=== PATIENT | female | born 1955 | race African-American/Black ===

== ENCOUNTER 2016-03-29 17:40 | Emergency (ER) | payer MEDICARE, OTHER ==
[~2016-03-29] VITALS: Ht 152.4 cm; Wt 136.5 kg
[~2016-03-29 17:40] MED LIST: ABILIFY10 MG ORAL; ACETAMINOPHEN-1 EAC1 ORAL; ALTACE5 MG PO; AMBIEN10 MG PO; ASPIRIN EC81 MG ORAL; ATIVAN0.5 MG PO; BENADRYL25 M3 PO; CARISOPRODOL350 MG ORAL; CLONIDINE 0.2M0.2 MG PO; CYCLOBENZAPRINE10 MG ORAL; DIURIL25 MG ORAL; FLUTICASONE PRO16 G1 NASAL; GABAPENTIN100 MG ORAL; IBUPROFEN600 MG ORAL; LORATADINE5 MG/5 ML PO; LOVASTATIN10 MG ORAL; LOVASTATIN20 MG ORAL; MENEST0.3 MG PO; NORCO 5-325 TA1 EACH ORAL; RAMIPRIL5 MG PO; ROBAXIN-750750 MG PO; SERTRALINE HCL100 MG PO; TEMAZEPAM30 MG ORAL; TIZANIDINE HCL4 MG ORAL; TRAMADOL HCL50 MG ORAL; TRAZODONE HCL150 MG ORAL; VALIUM5 MG ORAL; VIIBRYD1 EACH PO; VIIBRYD10 MG PO; ZOLPIDEM TARTRA10 MG PO; [UNRECOGNIZED DRUG - OTHER] PO; [UNRECOGNIZED DRUG - OTHER] PO
--- NOTE | 2016-03-29 20:08 | Emergency Room Report ---
History of Present Illness General Chief Complaint: Lower Extremity Injury Source: Patient, Medical Record Present Illness HPI 60-year-old female presents to emergency Department complaining of left-sided lower back/hip pain in addition to left knee pain 8/10 in severity times almost 2 weeks. Status post mechanical slip and fall in the bathroom. Patient denies hitting her head she denies loss of consciousness. Patient reports continued pain. Patient denies bruising or swelling. Patient states pain is worse with weightbearing. Patient takes Advil with minimal relief. Denies neck or midline back pain. Patient denies previous injury to the affected extremity is. Denies numbness tingling or loss of sensation or gross motor movements of the extremities, incontinence of bowel or bladder. Denies CP, Palpitations, LOC , AMS, dizziness, Changes in Vision, Sensation, paresthesias, or a sudden severe headache. Allergies: Coded Allergies: NAPROXEN (Verified Allergy, Unknown, 12/25/14) Patient History Past Medical History: see triage record Past Surgical History: none Pertinent Family History: none Last Menstrual Period: menopause Now: No Reviewed Nursing Documentation: PMH: Agreed, PSxH: Agreed Nursing Documentation-PMH Past Medical History: No History, Except For Hx Cardiac Problems: Yes Hx Hypertension: Yes Hx Cancer: No Hx Gastrointestinal Problems: Yes - nausea/ vomiting Hx Dialysis: No Hx Neurological Problems: Yes Hx Transient Ischemic Attacks: Yes - 2011, 2012 Hx Memory Loss: Yes Hx Speech Problem: Yes Hx Dizziness: Yes Hx Weakness: Yes Review of Systems All Other Systems: negative except mentioned in HPI Physical Exam Vital Signs Date Time Temp Pulse Resp B/P Pulse Ox O2 Delivery O2 Flow Rate FiO2 03/29/16 18:45 97.9 72 16 170/103 99 Room Air Sp02 EP Interpretation: reviewed, normal General Appearance: no apparent distress, alert, GCS 15, non-toxic Head: normocephalic, atraumatic Eyes: bilateral eye PERRL, bilateral eye normal inspection ENT: hearing grossly normal, normal pharynx, no angioedema, normal voice Neck: full range of motion, supple/symm/no masses Respiratory: chest non-tender, lungs clear, normal breath sounds, speaking full sentences Cardiovascular #1: regular rate, rhythm, no edema Gastrointestinal: normal bowel sounds, non tender, soft, no guarding, no rebound Rectal: deferred Genitourinary: normal inspection, no CVA tenderness Musculoskeletal: back normal, gait/station normal, normal range of motion, no calf tenderness, other - anterior and lateral left knee TTP, no increased laxity upon varus or valgus stressing, negative anterior and posterior drawer signs. Left lateral hip pain, no obvious deformity, swelling or bruising. mild left upper gluteal pain, no midline spinous pain. Neurologic: alert, oriented x3, responsive, motor strength/tone normal, sensory intact, speech normal Psychiatric: judgement/insight normal, memory normal, mood/affect normal, no suicidal/homicidal ideation Reflexes: 4+ bicep (R), 4+ bicep (L), 4+ tricep (R), 4+ tricep (L), 4+ knee (R) , 4+ knee (L) Skin: normal color, no rash, warm/dry, well hydrated Lymphatic: no adenopathy Procedures Splinting Splinting : Consent: Verbal Location: left knee Pre-Made Type: TOMMY wrap Pre-Proc Neuro Vasc Exam: normal Post-Proc Neuro Vasc Exam: normal Patient Tolerated: Well Complications: None Medical Decision Making Diagnostic Impression: Primary Impression: Contusion of left hip and thigh Qualified Codes: S70.02XA - Contusion of left hip, initial encounter; S70.12XA - Contusion of left thigh, initial encounter Additional Impressions: Contusion of knee, left Left knee sprain Qualified Codes: S83.92XA - Sprain of unspecified site of left knee, initial encounter ER Course Pt. presents to the ED c/o of pain, left hip pain status post mechanical slip and fall approximately 2 weeks ago. Ddx considered but are not limited to Fracture, dislocation, contusion, Sprain/ Strain/Spasm Vital signs: are WNL, pt. is afebrile H&PE are most consistent with possible contusion rule out fractures with imaging ORDERS: - X-ray Left knee 3 views - negative for fx, Dislocation, or significant soft tissue injury, per preliminary read in ED by Dr. Hensley. - X-ray Left Hip 2 views - negative for fx, Dislocation, or significant soft tissue injury, per preliminary read in ED by Dr. Hensley. ED INTERVENTIONS: -500mg Tylenol PO - Tommy wrap applied by diesel lube tech. Pt. remains neurovascularly intact. -She is provided with crutches DISCHARGE: At this time pt. is stable for d/c to home. Will provide printed patient care instructions, and any necessary prescriptions. Care plan and follow up instructions have been discussed with the patient prior to discharge. Last Vital Signs Date Time Temp Pulse Resp B/P Pulse Ox O2 Delivery O2 Flow Rate FiO2 03/29/16 18:45 97.9 72 16 170/103 99 Room Air Disposition: HOME, SELF-CARE Condition: Stable Scripts Acetaminophen* (TYLENOL EXTRA STRENGTH*) 500 Mg Tablet 500 MG ORAL Q6H, #30 TAB 0 Refills Prov: Jaky See 03/29/16 Referrals: [facility],REFERRING (PCP) Patient Instructions: Contusion Additional Instructions: Take medications as directed. Follow up with PCP in 3-5 days Return sooner to ED if new symptoms occur, or current symptoms become worse. Jaky See Mar 29, 2016 20:08
[2016-03-29 20:19] VITALS: BP 161/95
[2016-03-29] MEDS ORDERED: TYLENOL EXTRA500 MG ORAL (20:26)
[2016-03-29] MEDS ORDERED: Acetaminophen 500mg (ES) tab ORAL ONE (20:30)
--- NOTE | 2016-03-30 09:16 | Diagnostic Imaging Report ---
Indications: Left knee pain Technique: 3 views of the left knee Findings: Comparison: None No fracture, dislocation, lytic destruction, periosteal reaction, joint space widening or effusion, surrounding soft tissue abnormality, or other acute changes demonstrated. No deformity, alignment abnormality, arthritic change, soft tissue calcification, or other chronic changes demonstrated. IMPRESSION: Negative left knee series.
--- NOTE | 2016-03-30 09:26 | Diagnostic Imaging Report ---
Indications: Fall one week ago with left hip injury, persistent pain Technique: 2 views left hip. Findings: Comparison: None No fracture, dislocation, joint space widening , surrounding soft tissue swelling/foreign body/other abnormality, or other acute changes are identified. IMPRESSION: No evidence of acute injury to the left hip.
[2016-03-30] MEDS ORDERED: ACETAMINOPHEN-1 EAC1 ORAL (17:09)
== END 2016-03-29 20:52 | disposition home or self-care (01) ==
LOC: EMR 19:34
DX: S70.02XA Contusion of left hip, initial encounter (principal); S70.12XA Contusion of left thigh, initial encounter; S83.92XA Sprain of unspecified site of left knee, initial encounter; S80.02XA Contusion of left knee, initial encounter; Z88.6 Allergy status to analgesic agent; I10 Essential (primary) hypertension; Z86.73 Personal history of transient ischemic attack (TIA), and cerebral infarction without residual deficits; W01.0XXA Fall on same level from slipping, tripping and stumbling without subsequent striking against object, initial encounter; Y92.002 Bathroom of unspecified non-institutional (private) residence as the place of occurrence of the external cause; Y99.8 Other external cause status
CPT/HCPCS: 73502; 99284

== ENCOUNTER 2016-03-30 16:50 | Emergency (ER) | payer MEDICARE, OTHER ==
[~2016-03-30] VITALS: Ht 157.5 cm; Wt 68.9 kg
[~2016-03-30 16:50] MED LIST changes: +TYLENOL EXTRA500 MG ORAL
[2016-03-30 17:06] VITALS: BP 152/89
[2016-03-30] MEDS ORDERED: ACETAMINOPHEN-1 EAC1 ORAL (17:09)
[2016-03-30 17:12] VITALS: BP 152/89
--- NOTE | 2016-03-30 22:21 | Emergency Room Report ---
History of Present Illness General Chief Complaint: Pain Present Illness HPI The patient is a 60-year-old female presenting with left knee and hip pain which began yesterday after tripping and falling. The patient was seen in this emergency department and diagnosed with contusions. The patient was discharged home with a prescription for Tylenol the patient states that this has not been helping. The pain is described as a 10/10 dull ache and does not radiate from these areas. Pain worse with movement. The patient denies numbness or tingling Allergies: Coded Allergies: NAPROXEN (Verified Allergy, Unknown, 12/25/14) Patient History Past Medical History: see triage record Pertinent Family History: none Reviewed Nursing Documentation: PMH: Agreed, PSxH: Agreed Nursing Documentation-PMH Hx Cardiac Problems: Yes Hx Hypertension: Yes Hx Cancer: No Hx Gastrointestinal Problems: Yes - nausea/ vomiting Hx Dialysis: No Hx Neurological Problems: Yes Hx Transient Ischemic Attacks: Yes - 2011, 2012 Hx Memory Loss: Yes Hx Speech Problem: Yes Hx Dizziness: Yes Hx Weakness: Yes Review of Systems All Other Systems: negative except mentioned in HPI Physical Exam Vital Signs Date Time Temp Pulse Resp B/P Pulse Ox O2 Delivery O2 Flow Rate FiO2 03/30/16 16:57 98.4 66 20 148/92 100 Room Air Sp02 EP Interpretation: reviewed, normal General Appearance: no apparent distress, alert, GCS 15, non-toxic Head: normocephalic, atraumatic Neck: full range of motion, supple/symm/no masses Musculoskeletal: back normal, digits/nails normal, normal range of motion, pelvis stable, tender - TTP over lateral L hip and L knee Neurologic: alert, oriented x3, responsive, motor strength/tone normal, sensory intact, speech normal Psychiatric: judgement/insight normal, memory normal, mood/affect normal, no suicidal/homicidal ideation Skin: normal color, no rash, warm/dry, well hydrated Medical Decision Making PA Attestation Dr. Hensley is my supervising physician. Patient management was discussed with my supervising physician Diagnostic Impression: Primary Impression: Contusion of hip, left Additional Impression: Pain ER Course The patient is a 60-year-old female presenting with left knee and hip pain which began yesterday after tripping and falling. DDx: contusion, fracture, sprain PE: Vitals WNL. NAD L knee: TTP over anterior and lateral joint line. Full AROM. No obvious deformity. No laxity. L hip: No erythema or edema. Sensation intact to light touch. Full AROM. TTP over lateral hip. No joint laxity. No obvious deformity The patient will be discharged home with a prescription for Tylenol No. 3. ER precautions are given and the patient will followup with primary care physician Last Vital Signs Date Time Temp Pulse Resp B/P Pulse Ox O2 Delivery O2 Flow Rate FiO2 03/30/16 17:12 98.2 68 19 152/89 99 Room Air Status: improved Disposition: HOME, SELF-CARE Condition: Improved Scripts Acetaminophen With Codeine (T#3) (TYLENOL #3 TAB*) Y Tab 1 TAB ORAL Q4H Y for For Pain, #15 TAB Prov: ABHINAV BLACKMON 03/30/16 Referrals: [facility],REFERRING (PCP) Patient Instructions: Hip Pain Additional Instructions: I discussed my findings with the patient. All questions and concerns have been answered. Treatment and medication compliance have been addressed. I advised the patient that they need to follow up with PMD in 3-5 days. Return to ED if pain remains or worsens, numbness or tingling occurs, new rash is noticed, fever is noticed, or if needed for any reason. Patient verbalized understanding of discharge instructions. ABHINAV BLACKMON Mar 30, 2016 22:21
== END 2016-03-30 17:20 | disposition home or self-care (01) ==
LOC: EMR 17:14
DX: S70.02XD Contusion of left hip, subsequent encounter (principal); I10 Essential (primary) hypertension; Z86.73 Personal history of transient ischemic attack (TIA), and cerebral infarction without residual deficits; Z88.6 Allergy status to analgesic agent; W18.30XD Fall on same level, unspecified, subsequent encounter
CPT/HCPCS: 99283

== ENCOUNTER 2016-05-21 15:00 | Emergency (ER) | payer MEDICARE, OTHER ==
[~2016-05-21] VITALS: Ht 154.9 cm; Wt 95.7 kg
[2016-05-21] MEDS ORDERED: Artificial Tears 1.4% Op Soln BOTH EYES STA (15:19)
--- NOTE | 2016-05-21 15:26 | Emergency Room Report ---
History of Present Illness General Chief Complaint: Chest Pain Source: Patient Present Illness HPI A presents with 3 weeks of illness. She's had a cough. She was treated with amoxicillin for 1 week at the beginning. She's persisted to have coughing with some wheezing recently. This morning she woke up with green discharge from her nose and also resting in both of her eyes. The eyes are inflamed and uncomfortable. She did receive a flu vaccination last year and also pneumonia shot. She's had fevers. She also complains of a headache. She states the headache is 9/10, throbbing in bilateral. Does not radiate. She denies any neck pain. She took Tylenol yesterday. It helped somewhat at that time. She denies any nausea vomiting dysuria skin rashes. She had diarrhea yesterday which was yellow. No blood. She has bipolar disorder and has been taking medication. No SI or HI. Allergies: Coded Allergies: NAPROXEN (Verified Allergy, Unknown, 12/25/14) Patient History Past Medical History: see triage record Past Surgical History: franca Social History: Denies: smoking Social History Narrative Lives by herself Reviewed Nursing Documentation: PMH: Agreed, PSxH: Agreed Nursing Documentation-PM Past Medical History: No History, Except For Hx Cardiac Problems: Yes Hx Hypertension: Yes Hx Cancer: No Hx Gastrointestinal Problems: Yes - nausea/ vomiting Hx Dialysis: No History Of Psychiatric Problem: Yes - Depression, Anxiety Hx Neurological Problems: No Hx Transient Ischemic Attacks: Yes - 2011, 2012 Hx Memory Loss: Yes Hx Speech Problem: Yes Hx Dizziness: Yes Hx Weakness: Yes Review of Systems All Other Systems: negative except mentioned in HPI Physical Exam Vital Signs Date Time Temp Pulse Resp B/P Pulse Ox O2 Delivery O2 Flow Rate FiO2 05/21/16 15:05 98.8 80 16 135/82 97 Room Air Sp02 EP Interpretation: reviewed, normal General Appearance: well appearing, no apparent distress, GCS 15 Head: normocephalic Eyes: bilateral eye PERRL, bilateral eye Scleral Injection, bilateral eye lid inflammation ENT: TMs + canals normal, moist mucus membranes, pharyngeal erythema Neck: full range of motion, supple, no meningismus Respiratory: chest non-tender, lungs clear Cardiovascular #1: regular rate, rhythm Cardiovascular #2: 2+ radial (R) Gastrointestinal: normal inspection, normal bowel sounds, non tender, no mass, non-distended Musculoskeletal: back normal, gait/station normal, normal range of motion Neurologic: alert, oriented x3, grossly normal Psychiatric: mood/affect normal Skin: normal inspection, warm/dry Medical Decision Making Diagnostic Impression: Primary Impression: Sinusitis Qualified Codes: J01.00 - Acute maxillary sinusitis, unspecified Additional Impressions: Conjunctivitis of both eyes Qualified Codes: H10.33 - Unspecified acute conjunctivitis, bilateral Chest pain Qualified Codes: R07.9 - Chest pain, unspecified ER Course Patient presents with 3 weeks of upper respiratory symptomatology. She is status post one course of amoxicillin. Differential with the eye involvement include viral, chlamydial, other bacterial etiology. As she has been wheezing she'll be treated with bronchodilators here. Also she will be evaluated with EKG, chest x-ray and labs as she complains of chest pain. Antibiotics for atypicals (chlamydia) indicated. Need to exclude pneumonia. See results below. CXR and EKG unremarkable. WBC normal as electrolytes. Improved with treatment. Laboratory Tests Test 05/21/16 15:45 White Blood Count 9.2 K/UL (4.8-10.8) Red Blood Count 4.14 M/UL (4.20-5.40) L Hemoglobin 12.6 G/DL (12.0-16.0) Hematocrit 38.5 % (37.0-47.0) Mean Corpuscular Volume 93 FL (80-99) Mean Corpuscular Hemoglobin 30.4 PG (27.0-31.0) Mean Corpuscular Hemoglobin Concent 32.7 G/DL (32.0-36.0) Red Cell Distribution Width 11.7 % (11.6-14.8) Platelet Count 273 K/UL (150-450) Mean Platelet Volume 7.6 FL (6.5-10.1) Neutrophils (%) (Auto) 44.7 % (45.0-75.0) L Lymphocytes (%) (Auto) 44.1 % (20.0-45.0) Monocytes (%) (Auto) 7.6 % (1.0-10.0) Eosinophils (%) (Auto) 2.7 % (0.0-3.0) Basophils (%) (Auto) 0.8 % (0.0-2.0) Urine Color Pale yellow Urine Appearance Clear Urine pH 6 (4.5-8.0) Urine Specific [place] 1.020 (1.005-1.035) Urine Protein Negative (NEGATIVE) Urine Glucose (UA) Negative (NEGATIVE) Urine Ketones Negative (NEGATIVE) Urine Occult Blood Negative (NEGATIVE) Urine Nitrite Negative (NEGATIVE) Urine Bilirubin Negative (NEGATIVE) Urine Urobilinogen Normal MG/DL (0.0-1.0) Urine Leukocyte Esterase 1+ (NEGATIVE) H Urine RBC 0-2 /HPF (0 - 2) Urine WBC 0-2 /HPF (0 - 2) Urine Squamous Epithelial Cells Many /LPF (NONE/OCC) H Urine Bacteria Occasional /HPF (NONE) Sodium Level 141 mEQ/L (135-145) Potassium Level 3.7 mEQ/L (3.4-4.9) Chloride Level 101 mEQ/L (98-107) Carbon Dioxide Level 27 mEQ/L (20-30) Anion Gap 13 (5-15) Blood Urea Nitrogen 17 mg/dL (7-23) Creatinine 0.9 mg/dL (0.5-0.9) Estimate Glomerular Filtration Rate > 60 mL/min (>60) Glucose Level 118 mg/dL (74-106) H Calcium Level 8.9 mg/dL (8.6-10.2) Total Bilirubin < 0.2 mg/dL (0.0-1.2) Aspartate Amino Transferase (AST) 16 U/L (5-40) Alanine Aminotransferase (ALT) 15 U/L (3-33) Alkaline Phosphatase 80 U/L (35-104) Total Protein 7.0 g/dL (6.6-8.7) Albumin 3.8 g/dL (3.5-5.2) Globulin 3.2 g/dL Albumin/Globulin Ratio 1.1 (1.0-2.7) EKG Diagnostic Results Rate: normal Rhythm: NSR ST Segments: no acute changes Rhythm Strip Diag. Results EP Interpretation: yes Rhythm: NSR, no PVC's, no ectopy Chest X-Ray Diagnostic Results EP Interpretation: Yes Findings: no consolidation, no effusion, no pneumothorax, no acute cardiopulmonary disease Number of Views: 1 Last Vital Signs Date Time Temp Pulse Resp B/P Pulse Ox O2 Delivery O2 Flow Rate FiO2 05/21/16 17:19 98.8 74 18 128/67 100 Room Air Status: improved Disposition: HOME, SELF-CARE Condition: Improved Scripts Albuterol Sulfate* (ALBUTEROL SULFATE MDI*) 8.5 Gm Hfa.aer.ad 2 PUFF INH Q6H, #1 INH 0 Refills Prov: Bebo Fowler M.D. 05/21/16 Tramadol Hcl* (ULTRAM*) 50 Mg Tablet 50 MG ORAL Q6H Y for For Pain, #10 TAB 0 Refills Prov: Bebo Fowler M.D. 05/21/16 Sulfacetamide Sodium (BLEPH-10) 5 Ml Drops 2 DROP OP Q6HR, #5 ML Prov: Bebo Fowler M.D. 05/21/16 Levofloxacin* (LEVAQUIN*) 500 Mg Tablet 500 MG ORAL DAILY, #7 TAB Prov: Bebo Fowler M.D. 05/21/16 Ibuprofen* (MOTRIN*) 600 Mg Tablet 600 MG ORAL Q6H Y for For Pain, #16 TAB Prov: Bebo Fowler M.D. 05/21/16 Bebo Fowler M.D. May 21, 2016 15:26
[2016-05-21] MEDS ORDERED: Albuterol ud Inhalation HHN ONE (15:30)
[2016-05-21 16:06] LABS: APPEARANCE,URINE CLEAR; BASOPHILS % (AUTO) 0.8 % (0.0-2.0); EOSINOPHILS % (AUTO) 2.7 % (0.0-3.0); KETONES,URINE NEGATIVE (NEGATIVE); LEUKOCYTE ESTERASE ,URINE 1+ (NEGATIVE); LYMPHOCYTES % (AUTO) 44.1 % (20.0-45.0); MEAN CORPUSCULAR HEMOGLOBIN 30.4 PG (27.0-31.0); MEAN CORPUSCULAR HGB CONC 32.7 G/DL (32.0-36.0); MEAN CORPUSCULAR VOLUME 93 FL (80-99); MEAN PLATELET VOLUME 7.6 FL (6.5-10.1); MONOCYTES % (AUTO) 7.6 % (1.0-10.0); NEUTROPHILS % (AUTO) 44.7 % (45.0-75.0); NITRITE,URINE NEGATIVE (NEGATIVE); PH,URINE 6 (4.5-8.0); PLATELET COUNT 273 K/UL (150-450); PROTEIN,URINE NEGATIVE (NEGATIVE); RED BLOOD COUNT 4.14 M/UL (4.20-5.40); RED CELL DISTRIBUTION WIDTH 11.7 % (11.6-14.8); UROBILINOGEN,URINE NORMAL MG/DL (0.0-1.0); WHITE BLOOD COUNT 9.2 K/UL (4.8-10.8)
--- NOTE | 2016-05-21 16:17 | Diagnostic Imaging Report ---
Indications: Chest pain, cough Technique: Portable AP chest Findings: Comparison: 09/04/13 Cardiac silhouette remains enlarged. Pulmonary vasculature remains within normal limits. Lungs and pleura remain clear. Metallic density now overlies lower thoracic spine.. IMPRESSION: No evidence of acute disease, unchanged. Stable cardiomegaly Suggestion of interval thoracic spine fusion
[2016-05-21 16:21] LABS: BACTERIA,URINE OCCASIONAL /HPF; RBC,URINE 0-2 /HPF (0 - 2); SQUAMOUS EPITHELIAL CELL,UR MANY /LPF (NONE/OCC); WBC,URINE 0-2 /HPF (0 - 2)
[2016-05-21 16:35] LABS: ALANINE AMINOTRANSFERASE 15 U/L (3-33); ALBUMIN/GLOBULIN RATIO 1.1 (1.0-2.7); ANION GAP 13 (5-15); ASPARTATE AMINO TRANSFERASE 16 U/L (5-40); CALCIUM 8.9 mg/dL (8.6-10.2); CARBON DIOXIDE 27 mEQ/L (20-30); CHLORIDE 101 mEQ/L (98-107); CREATININE 0.9 mg/dL (0.5-0.9); GLOMERULAR FILTRATION RATE > 60 mL/min (>60); HEMOLYSIS 11; POTASSIUM 3.7 mEQ/L (3.4-4.9); SODIUM 141 mEQ/L (135-145)
[2016-05-21] MEDS ORDERED: ALBUTEROL SULF8.5 GM INH (16:46)
[2016-05-21] MEDS ORDERED: IBUPROFEN600 MG ORAL (16:46)
[2016-05-21] MEDS ORDERED: BLEPH-105 ML OP (16:46)
[2016-05-21] MEDS ORDERED: LEVAQUIN500 MG ORAL (16:46)
[2016-05-21] MEDS ORDERED: TRAMADOL HCL50 MG ORAL (16:46)
[2016-05-21 16:53] VITALS: BP 128/67
[2016-05-21 17:19] VITALS: BP 128/67
--- NOTE | 2016-05-28 16:47 | Cardiology Report ---
APPROVED REPORT EKG Measurement Heart [id number] Normal sinus rhythm Normal ECG
== END 2016-05-21 17:23 | disposition home or self-care (01) ==
LOC: EMR 16:47
DX: J01.00 Acute maxillary sinusitis, unspecified (principal); H10.33 Unspecified acute conjunctivitis, bilateral; R07.9 Chest pain, unspecified; Z86.73 Personal history of transient ischemic attack (TIA), and cerebral infarction without residual deficits; F32.9 Major depressive disorder, single episode, unspecified; F41.9 Anxiety disorder, unspecified; I10 Essential (primary) hypertension; Z88.6 Allergy status to analgesic agent
CPT/HCPCS: 36415; 71010; 80053; 81003; 85025; 93005; 94640; 94664; 96360; 99284; J1956

== ENCOUNTER 2016-06-29 08:20 | Outpatient (RCR) | payer MEDICARE, OTHER ==
[~2016-06-29 08:20] MED LIST changes: +ALBUTEROL SULF8.5 GM INH; +BLEPH-105 ML OP; +LEVAQUIN500 MG ORAL
[2016-07-18] MEDS ORDERED: TIZANIDINE HCL4 MG ORAL (07:53)
[2016-07-18] MEDS ORDERED: BANOPHEN50 MG PO (07:53)
[2016-07-18] MEDS ORDERED: BUPROPION HCL100 MG ORAL (07:53)
[2016-07-18] MEDS ORDERED: ACETAMINOPHEN-1 EAC1 ORAL (08:27)
[2016-07-18] MEDS ORDERED: IBUPROFEN600 MG ORAL (08:27)
[2016-07-19] MEDS ORDERED: HYDROCODON-ACE1 EA15 ORAL (22:05)
== END 2016-07-18 | disposition home or self-care (01) ==
LOC: PTY 08:20
DX: M54.5 Low back pain (principal); M79.606 Pain in leg, unspecified; M25.562 Pain in left knee; Z91.81 History of falling; R53.1 Weakness; F41.9 Anxiety disorder, unspecified; F32.9 Major depressive disorder, single episode, unspecified; E11.9 Type 2 diabetes mellitus without complications; M19.90 Unspecified osteoarthritis, unspecified site; Z86.73 Personal history of transient ischemic attack (TIA), and cerebral infarction without residual deficits
CPT/HCPCS: 97035; 97110; 97162; G0283; G8978; G8979

== ENCOUNTER 2016-07-18 07:34 | Emergency (ER) | payer MEDICARE, OTHER ==
[~2016-07-18] VITALS: Ht 154.9 cm; Wt 93.9 kg
[2016-07-18] MEDS ORDERED: BUPROPION HCL100 MG ORAL (07:53)
[2016-07-18] MEDS ORDERED: TIZANIDINE HCL4 MG ORAL (07:53)
[2016-07-18] MEDS ORDERED: BANOPHEN50 MG PO (07:53)
[2016-07-18 08:02] VITALS: BP 142/92
[2016-07-18] MEDS ORDERED: Ketorolac 30mg Inj IM ONE (08:15)
[2016-07-18] MEDS ORDERED: IBUPROFEN600 MG ORAL (08:27)
[2016-07-18] MEDS ORDERED: ACETAMINOPHEN-1 EAC1 ORAL (08:27)
[2016-07-18 08:29] VITALS: BP 142/92
--- NOTE | 2016-07-18 09:49 | Emergency Room Report ---
History of Present Illness General Chief Complaint: Pain Source: Patient Present Illness HPI 60-year-old female presents to ED complaining of left knee pain. Patient states in March she had a mechanical trip and fall. Patient was seen in ER and had x-rays which were negative. Patient states since then she has seen her PMD who had recommended physical therapy. Patient has gone to physical therapy for the last 3 weeks without significant provided. Patient is scheduled to see orthopedic this week however pain is getting worse she came to ER for evaluation. Pain is a 9/10, throbbing, nonradiating. Worse with walking. No other aggravating relieving factors. Denies any other associated symptoms Allergies: Coded Allergies: NAPROXEN (Verified Allergy, Unknown, 12/25/14) Patient History Past Medical History: HTN, CVA/TIA Past Surgical History: none Pertinent Family History: none Social History: Denies: alcohol use, drug use, smoking Now: No Immunizations: UTD Reviewed Nursing Documentation: PMH: Agreed, PSxH: Agreed Nursing Documentation-PMH Hx Cardiac Problems: Yes Hx Hypertension: Yes Hx Cancer: No Hx Gastrointestinal Problems: Yes - nausea/ vomiting Hx Dialysis: No Hx Neurological Problems: No Hx Transient Ischemic Attacks: Yes - 2011, 2012 Hx Memory Loss: Yes Hx Speech Problem: Yes Hx Dizziness: Yes Hx Weakness: Yes Review of Systems All Other Systems: negative except mentioned in HPI Physical Exam Vital Signs Date Time Temp Pulse Resp B/P Pulse Ox O2 Delivery O2 Flow Rate FiO2 07/18/16 07:38 98.1 69 16 142/92 100 Room Air Sp02 EP Interpretation: reviewed, normal General Appearance: no apparent distress, alert, GCS 15, non-toxic, obese Head: normocephalic Eyes: bilateral eye PERRL, bilateral eye normal inspection ENT: normal ENT inspection Neck: normal inspection Respiratory: chest non-tender, lungs clear, normal breath sounds, speaking full sentences Cardiovascular #1: regular rate, rhythm, no edema Gastrointestinal: normal inspection Rectal: deferred Genitourinary: no CVA tenderness Musculoskeletal: normal range of motion, no calf tenderness, swelling - L knee Neurologic: alert, oriented x3, responsive, motor strength/tone normal, sensory intact, speech normal Psychiatric: normal inspection Skin: normal inspection Lymphatic: normal inspection Procedures Splinting Splinting : Pre-Made Type: CLARITZA wrap - L knee Medical Decision Making Diagnostic Impression: Primary Impression: Knee pain Qualified Codes: M25.562 - Pain in left knee; G89.29 - Other chronic pain ER Course Hospital Course 60-year-old female presents to ED complaining of left knee pain. s/p fall x 3 months Differential diagnoses include: Fracture, dislocation, sprain, contusion, bursitis Clinical course Patient placed on stretcher. After initial history, physical exam reveals an middle-aged female in no acute distress. There is some tenderness to the knee. Some swelling noted. Full range of motion noted. No joint laxity. I reviewed EMR. Patient had x-rays in March which were negative. Patient has been going to therapy since without significant relief. I see no reason to repeat imaging at this time. Patient will likely benefit from orthopedic consultation. patient has orthopedic scheduled appointment this week Patient states her home pain medications are not helping. I will prescribe Motrin and Tylenol No. 3 for breakthrough pain Diagnosis - knee pain stable and discharged to home with prescription for Motrin, Tylenol #3. Followup with PMD. Return to ED if symptoms recur or worsen Last Vital Signs Date Time Temp Pulse Resp B/P Pulse Ox O2 Delivery O2 Flow Rate FiO2 07/18/16 08:29 98.1 80 16 142/92 100 Room Air Status: improved Disposition: HOME, SELF-CARE Condition: Stable Scripts Acetaminophen With Codeine (T#3) (TYLENOL #3 TAB*) Y Tab 1 TAB ORAL Q8H Y for For Pain, #20 TAB Prov: NASH ALMARAZ M.D. 07/18/16 Ibuprofen* (MOTRIN*) 600 Mg Tablet 600 MG ORAL Q8H Y for For Pain, #30 TAB 0 Refills Prov: NASH ALMARAZ M.D. 07/18/16 Referrals: Sukh Castañeda MD (PCP) Patient Instructions: Knee Pain, [id number] NASH ALMARAZ M.D. Jul 18, 2016 09:49
[2016-07-19] MEDS ORDERED: HYDROCODON-ACE1 EA15 ORAL (22:05)
== END 2016-07-18 08:34 | disposition home or self-care (01) ==
LOC: EMR 08:20
DX: M25.562 Pain in left knee (principal); I10 Essential (primary) hypertension; Z86.73 Personal history of transient ischemic attack (TIA), and cerebral infarction without residual deficits; Z91.81 History of falling
CPT/HCPCS: 29530; 96372; 99284; J1885

== ENCOUNTER 2016-07-19 09:00 | Outpatient (RCR) | payer MEDICARE, OTHER ==
[~2016-07-19 09:00] MED LIST changes: +BANOPHEN50 MG PO; +BUPROPION HCL100 MG ORAL
[2016-07-19] MEDS ORDERED: HYDROCODON-ACE1 EA15 ORAL (22:05)
[2016-08-14] MEDS ORDERED: LYRICA75 M1 ORAL (13:17)
[2016-08-14] MEDS ORDERED: BANOPHEN50 MG PO (13:17)
[2016-08-14] MEDS ORDERED: DICLOFENAC SOD100 MG PO (13:17)
[2016-08-14] MEDS ORDERED: BENZTROPINE ME0.5 MG PO (13:17)
[2016-08-14] MEDS ORDERED: DIOVAN160 MG ORAL (13:17)
[2016-08-14] MEDS ORDERED: FLUOXETINE HCL20 MG ORAL (13:17)
[2016-08-14] MEDS ORDERED: IBUPROFEN400 MG ORAL (13:37)
[2016-08-14] MEDS ORDERED: CYCLOBENZAPRINE10 MG ORAL (13:37)
== END 2016-08-18 | disposition home or self-care (01) ==
LOC: PTY 09:00
DX: M54.5 Low back pain (principal); M79.606 Pain in leg, unspecified; M25.562 Pain in left knee; Z91.81 History of falling; R53.1 Weakness; F41.9 Anxiety disorder, unspecified; F32.9 Major depressive disorder, single episode, unspecified; E11.9 Type 2 diabetes mellitus without complications; M19.90 Unspecified osteoarthritis, unspecified site; Z86.73 Personal history of transient ischemic attack (TIA), and cerebral infarction without residual deficits
CPT/HCPCS: 97035; 97110; G0283

== ENCOUNTER 2016-07-19 21:17 | Emergency (ER) | payer MEDICARE, OTHER ==
[~2016-07-19] VITALS: Ht 154.9 cm; Wt 98.4 kg
[2016-07-19 21:40] VITALS: BP 116/81
[2016-07-19] MEDS ORDERED: HYDROmorphone 1mg/ml Carpuject IM ONE (22:00)
[2016-07-19] MEDS ORDERED: HYDROCODON-ACE1 EA15 ORAL (22:05)
--- NOTE | 2016-07-19 22:06 | Emergency Room Report ---
History of Present Illness General Chief Complaint: Pain Source: Patient Present Illness HPI This is a 60-year-old he male with multiple medical problem. She presents with chief complaint of left knee pain. She had fallen on her knee couple months ago. X-rays were negative. She's been getting physical therapy is not helping. She was seen here yesterday and prescribe Tylenol No. 3. She went to physical therapy today and afterward her whole left knee and leg is throbbing and hurting. Worse with movement. Fell spasm. Pain is 10 out of 10. Her Tylenol #3 not helping. No other complaint. No trauma. Allergies: Coded Allergies: NAPROXEN (Verified Allergy, Unknown, 12/25/14) Patient History Past Medical History: see triage record, old chart reviewed Pertinent Family History: none Social History: Denies: smoking Last Menstrual Period: NA Now: No Immunizations: other Reviewed Nursing Documentation: PMH: Agreed, PSxH: Agreed Nursing Documentation-PMH Hx Cardiac Problems: Yes Hx Hypertension: Yes Hx Cancer: No Hx Gastrointestinal Problems: Yes - nausea/ vomiting Hx Dialysis: No Hx Neurological Problems: No Hx Transient Ischemic Attacks: Yes - 2011, 2012 Hx Memory Loss: Yes Hx Speech Problem: Yes Hx Dizziness: Yes Hx Weakness: Yes Review of Systems Eye: Denies: blurred vision, eye pain ENT: Denies: ear pain, nose congestion, throat swelling Respiratory: Denies: cough, shortness of breath Cardiovascular: Denies: chest pain, palpitations Gastrointestinal: Denies: abdominal pain, diarrhea, nausea, vomiting Musculoskeletal: Reports: joint pain, Denies: back pain Skin: Denies: rash Neurological: Denies: headache, numbness Endocrine: Denies: increased thirst, increased urine Hematologic/Lymphatic: Denies: easy bruising All Other Systems: negative except mentioned in HPI Physical Exam Vital Signs Date Time Temp Pulse Resp B/P Pulse Ox O2 Delivery O2 Flow Rate FiO2 07/19/16 21:25 98.1 84 18 105/64 97 Room Air vitals normal Sp02 EP Interpretation: reviewed, normal General Appearance: well appearing, no apparent distress, alert, obese Head: normocephalic, atraumatic Eyes: bilateral eye EOMI, bilateral eye PERRL ENT: hearing grossly normal, normal pharynx Neck: full range of motion, supple, no meningismus Respiratory: chest non-tender, lungs clear, normal breath sounds Cardiovascular #1: regular rate, rhythm, no murmur Gastrointestinal: normal bowel sounds, non tender, no mass, no organomegaly, no bruit, non-distended Musculoskeletal: back normal, gait/station normal, other - Diffuse tenderness to the left knee No redness. No edema. Psychiatric: mood/affect normal Skin: warm/dry Medical Decision Making Diagnostic Impression: Primary Impression: Knee pain Qualified Codes: M25.562 - Pain in left knee ER Course Patient presents with acute on chronic knee pain. No evidence of any fracture dislocation. No evidence of DVT or septic joint. We'll discharge home. Last Vital Signs Date Time Temp Pulse Resp B/P Pulse Ox O2 Delivery O2 Flow Rate FiO2 07/19/16 21:25 98.1 84 18 105/64 97 Room Air Status: improved Disposition: HOME, SELF-CARE Condition: Stable Scripts Hydrocodone/Acetaminophen 5-325* (HYDROCODONE/ACETAMINOPHEN 5-325*) 1 Each Tablet 1 TAB ORAL Q6H Y for For Pain, #30 TAB 0 Refills Prov: ALIDA QUEVEDO M.D. 07/19/16 Referrals: Sukh Castañeda MD (PCP) Additional Instructions: Followup with your DrLizzie in 7 days. Keep the appointment with orthopedic Dr. Return if worse. ALIDA QUEVEDO M.D. July 19, 2016 22:06
[2016-07-19 22:25] VITALS: BP 115/69
== END 2016-07-19 22:25 | disposition home or self-care (01) ==
LOC: EMR 21:28
DX: M25.562 Pain in left knee (principal); I10 Essential (primary) hypertension; Z86.73 Personal history of transient ischemic attack (TIA), and cerebral infarction without residual deficits
CPT/HCPCS: 96372; 99283; J1170

== ENCOUNTER 2016-08-14 12:47 | Emergency (ER) | payer MEDICARE, OTHER ==
[~2016-08-14] VITALS: Ht 154.9 cm; Wt 93.9 kg
[~2016-08-14 12:47] MED LIST changes: +HYDROCODON-ACE1 EA15 ORAL
[2016-08-14] MEDS ORDERED: BANOPHEN50 MG PO (13:17)
[2016-08-14] MEDS ORDERED: DICLOFENAC SOD100 MG PO (13:17)
[2016-08-14] MEDS ORDERED: DIOVAN160 MG ORAL (13:17)
[2016-08-14] MEDS ORDERED: FLUOXETINE HCL20 MG ORAL (13:17)
[2016-08-14] MEDS ORDERED: LYRICA75 M1 ORAL (13:17)
[2016-08-14] MEDS ORDERED: BENZTROPINE ME0.5 MG PO (13:17)
--- NOTE | 2016-08-14 13:34 | Emergency Room Report ---
History of Present Illness General Chief Complaint: Lower Back Pain or Injury Source: Patient, Medical Record Present Illness HPI 61-year-old female presents emergency department complaining of exacerbation of her chronic left knee pain in addition to left-sided low back pain which is 8/ 10 in severity x1 month. Patient was seen here one month ago where she was prescribed Gore. Patient states she recently had follow up appointment with her PCP and had MRI performed which showed degenerative disc in addition to arthritic changes. Patient states that her PCP discussed with her that she will need knee replacement. Patient states she continues to have pain in the knee and on the left side of her back. Patient states that her back pain feels like the muscle is spasm on one side she describes tightness, and intermittent radiation down the left posterior thigh. Patient denies trauma or fall. Patient denies recent spinal procedures. Patient states years ago she had cortisone injection in the spine but nothing recent. She denies fevers, chills , erythema or bruises. Patient reports intermittent swelling of the left knee exacerbated upon moderate walking. Denies numbness tingling or loss of sensation or gross motor movements of the extremities, incontinence of bowel or bladder. Denies CP, Palpitations, LOC, AMS, dizziness, Changes in Vision, Sensation, paresthesias, or a sudden severe headache. Allergies: Coded Allergies: NAPROXEN (Verified Allergy, Unknown, 12/25/14) Patient History Past Medical History: see triage record Past Surgical History: none Pertinent Family History: none Now: No Immunizations: UTD Reviewed Nursing Documentation: PMH: Agreed, PSxH: Agreed Nursing Documentation-PMH Hx Cardiac Problems: Yes Hx Hypertension: Yes Hx Cancer: No Hx Gastrointestinal Problems: Yes - nausea/ vomiting Hx Dialysis: No Hx Neurological Problems: No Hx Transient Ischemic Attacks: Yes - 2011, 2012 Hx Memory Loss: Yes Hx Speech Problem: Yes Hx Dizziness: Yes Hx Weakness: Yes Review of Systems All Other Systems: negative except mentioned in HPI Physical Exam Vital Signs Date Time Temp Pulse Resp B/P Pulse Ox O2 Delivery O2 Flow Rate FiO2 08/14/16 13:07 99.0 77 16 110/74 99 Room Air Sp02 EP Interpretation: reviewed, normal General Appearance: no apparent distress, alert, GCS 15, non-toxic Head: normocephalic, atraumatic Eyes: bilateral eye PERRL, bilateral eye normal inspection ENT: hearing grossly normal, normal pharynx, no angioedema, normal voice Neck: full range of motion, supple/symm/no masses Respiratory: lungs clear, normal breath sounds, speaking full sentences Cardiovascular #1: regular rate, rhythm, no edema, normal capillary refill Cardiovascular #2: 2+ dorsalis pedis (R), 2+ dorsalis pedis (L) Musculoskeletal: back normal, gait/station normal, normal range of motion - FROM with pain , exacerbated with flexion of the left knee, tender - left paraspinal and upper gluteal ttp, no midline TTP, no erythema, no increased temperature to palpation or obvious deformity of the lumbar spine. no erythema , inflammation or obvious deformity of the left knee, no clicking , no increased laxity of the left knee, mild swelling noted. Neurologic: alert, oriented x3, responsive, motor strength/tone normal, sensory intact, speech normal Psychiatric: judgement/insight normal, memory normal, mood/affect normal Skin: normal color, no rash, warm/dry, well hydrated Medical Decision Making PA Attestation Dr. Mercado is my supervising Physician whom patient management has been discussed with. Diagnostic Impression: Primary Impression: Knee pain Qualified Codes: M25.562 - Pain in left knee; G89.29 - Other chronic pain Additional Impression: back pain ER Course 61-year-old female presents emergency department complaining of exacerbation of her chronic left knee pain in addition to left-sided low back pain which is 8/ 10 in severity x1 month. Patient was seen here one month ago where she was prescribed Gore. Patient states she recently had follow up appointment with her PCP and had MRI performed which showed degenerative disc in addition to arthritic changes. Patient states that her PCP discussed with her that she will need knee replacement. Patient states she continues to have pain in the knee and on the left side of her back. Patient states that her back pain feels like the muscle is spasm on one side she describes tightness, and intermittent radiation down the left posterior thigh. Patient denies trauma or fall. Patient denies recent spinal procedures. Patient states years ago she had cortisone injection in the spine but nothing recent. She denies fevers, chills , erythema or bruises. Patient reports intermittent swelling of the left knee exacerbated upon moderate walking. Ddx considered but are not limited to Fracture, dislocation, contusion, Sprain/ Strain/Spasm, Epidural abscess, Neoplastic mets, exacerbating of chronic pain , arthritis Vital signs: are WNL, pt. is afebrile H&PE are most consistent with exacerbation of chronic back pain, and arthritis. Pt describes muscular tightness and spasms as well. ORDERS: - no imaging is required at this time, pt. just had MRI performed by PCP which showed DJD, and arthritis. ED INTERVENTIONS: - Pt declines toradol, and she is driving. -Tommy wrap applied to the left knee by contract technical writer. Pt. remains neurovascularly intact. CURES REPORT OF THIS PT SHOWS HER SHE RECENTLY FILLED AN RX FOR NORCO qty 90 5 DAYS AGO ON 08/09, I FEEL THIS PT, SHOULD HAVE ADEQUATE AMOUNT OF OPIATE MEDICATION FOR PAIN CONTROL, AND IF OPIATES REQUIRED, THEN IT NEEDS TO BE RX'd BY ONE PROVIDER FOR PATIENT SAFETY. -d/w pt proper follow up with PCP, and if symptoms persist suggested pain management. d/w pt. will treat for sciatic symptoms conservatively. d/w pt to return to ED with worsening or new symptoms. DISCHARGE: At this time pt. is stable for d/c to home. Will provide printed patient care instructions, and any necessary prescriptions. Care plan and follow up instructions have been discussed with the patient prior to discharge. Last Vital Signs Date Time Temp Pulse Resp B/P Pulse Ox O2 Delivery O2 Flow Rate FiO2 08/14/16 13:07 99.0 77 16 110/74 99 Room Air Disposition: HOME, SELF-CARE Condition: Stable Scripts Cyclobenzaprine Hcl* (FLEXERIL*) 10 Mg Tablet 10 MG ORAL THREE TIMES A DAY for 7 Days, #21 TAB Prov: Jaky See.Fatou 08/14/16 Ibuprofen* (MOTRIN*) 400 Mg Tablet 400 MG ORAL THREE TIMES A DAY, #30 TAB 0 Refills Prov: Jaky eSe.Fatou 08/14/16 Patient Instructions: Back Pain, Adult, Knee Pain, [id number] Additional Instructions: Take medications as directed. Follow up with PCP in 3-5 days Return sooner to ED if new symptoms occur, or current symptoms become worse. Do not drink alcohol, drive, or operate heavy machinery while taking Muscle relaxer as this may cause drowsiness. - Please note that this Emergency Department Report was dictated using Telecardiadrainlayer technology software, occasionally this can lead to erroneous entry secondary to interpretation by the dictation equipment. Jaky See August 14, 2016 13:34
[2016-08-14] MEDS ORDERED: IBUPROFEN400 MG ORAL (13:37)
[2016-08-14] MEDS ORDERED: CYCLOBENZAPRINE10 MG ORAL (13:37)
[2016-08-14 13:51] VITALS: BP 108/70
[2016-08-14 13:52] VITALS: BP 110/74
== END 2016-08-14 13:52 | disposition home or self-care (01) ==
LOC: EMR 13:40
DX: M25.562 Pain in left knee (principal); G89.29 Other chronic pain; M54.5 Low back pain; I10 Essential (primary) hypertension; Z86.73 Personal history of transient ischemic attack (TIA), and cerebral infarction without residual deficits
CPT/HCPCS: 29530; 99284

== ENCOUNTER 2016-11-03 13:31 | Outpatient (RCR) | payer MEDICARE, OTHER ==
[~2016-11-03 13:31] MED LIST changes: +BENZTROPINE ME0.5 MG PO; +DICLOFENAC SOD100 MG PO; +DIOVAN160 MG ORAL; +FLUOXETINE HCL20 MG ORAL; +IBUPROFEN400 MG ORAL; +LYRICA75 M1 ORAL
[2016-11-08] MEDS ORDERED: TIZANIDINE HCL4 MG ORAL (11:12)
[2016-11-19] MEDS ORDERED: VALSARTAN-HCTZ1 EAC2 ORAL (10:08)
[2016-11-19] MEDS ORDERED: LATUDA20 MG PO (10:09)
== END 2016-11-18 | disposition home or self-care (01) ==
LOC: PTY 13:31
DX: M17.12 Unilateral primary osteoarthritis, left knee (principal)
CPT/HCPCS: 97035; 97110; 97164; G0283; G8978; G8979

== ENCOUNTER 2016-11-09 07:44 | Day surgery (SDC) | payer MEDICARE, OTHER ==
--- NOTE | 2016-11-05 13:58 | Pre-Procedure Note/Attestation ---
Pre-Procedure Note/Attestation Complete Prior to Procedure Planned Procedure: left Procedure Narrative: 1. CATARACT EXTRACTION WITH PHACO AND PC IOL IMPLANTATION, LEFT EYE. Indications for Procedure Pre-Operative Diagnosis: 1. CATARACT ,LEFT EYE. Attestation I attest that I discussed the nature of the procedure; its benefits; risks and complications; and alternatives (and the risks and benefits of such alternatives ), prior to the procedure, with the patient (or the patient's legal field sales representative). I attest that, if there was a reasonable possibility of needing a blood transfusion, the patient (or the patient's legal field sales representative) was given the [facility] standardized written summary, pursuant to the Leon Deepthi Blood Safety Act ([place] Health and Safety Code # 1645, as amended). I attest that I re-evaluated the patient just prior to the surgery and that there has been no change in the patient's H&P, except as documented below: TAMMI ARAYA Nov 05, 2016 13:57
[~2016-11-09] VITALS: Ht 154.9 cm; Wt 96.6 kg
[2016-11-09] VITALS (11 sets, daily range): BP systolic 124–136; BP diastolic 68–88
[~2016-11-09 07:44] MED LIST changes: +acetaZOLAMIDE 125mg tab ORAL ONE
[2016-11-09] MEDS ORDERED: Akten 3.5% 1ml Btl ONE (08:00)
[2016-11-09] MEDS ORDERED: Diclofenac Sod 0.1% Op Soln ONE (08:00)
[2016-11-09] MEDS ORDERED: Vigamox Opth Soln ONE (08:00)
[2016-11-09] MEDS ORDERED: Phenylephrine 10% Opth Soln 5ml ONE (08:00)
[2016-11-09] MEDS ORDERED: Tropicamide 1% Opth Soln ONE (08:01)
[2016-11-09] MEDS: Vigamox Opth Soln LEFT EYE SCH ×3 (08:05→08:17)
[2016-11-09] MEDS: Tropicamide 1% Opth Soln LEFT EYE SCH ×3 (08:05→08:17)
[2016-11-09] MEDS: Phenylephrine 10% Opth Soln 5ml LEFT EYE SCH ×3 (08:05→08:17)
[2016-11-09] MEDS: Akten 3.5% 1ml Btl LEFT EYE SCH ×3 (08:06→08:17)
[2016-11-09] MEDS: Diclofenac Sod 0.1% Op Soln LEFT EYE SCH ×3 (08:06→08:17)
[2016-11-09] MEDS ORDERED: BSS 500ml btl ONE (08:19)
[2016-11-09] MEDS ORDERED: Lidocaine 1% MPF 10mg/ml 5ml ONE (08:20)
[2016-11-09] MEDS ORDERED: Dexamethasone 4mg/ml vial ONE (08:20)
[2016-11-09] MEDS ORDERED: Sodium Hyaluronate 10 mg/ml 0.85ml ONE (08:20)
[2016-11-09] MEDS ORDERED: Povidone-Iodine 5% opth solution ONE (08:20)
[2016-11-09] MEDS ORDERED: EPINEPHrine 1mg/1ml Amp ONE (08:20)
[2016-11-09] MEDS ORDERED: BSS 15ml BTL ONE (08:20)
[2016-11-09] MEDS ORDERED: NS Irrig 1000ml ONE (08:30)
[2016-11-09] MEDS ORDERED: fentaNYL 100 mcg/2 mL IV ONE (08:30)
[2016-11-09] MEDS ORDERED: Sterile Water Irrig 1000ml IRRIG ONE (08:30)
[2016-11-09] MEDS ORDERED: LR 1000ml ONE (08:30)
[2016-11-09] MEDS ORDERED: Midazolam 2mg/2ml Inj ONE (08:30)
[2016-11-09] MEDS ORDERED: Propofol 10mg/ml 20ml IV ONE (08:30)
[2016-11-09] MEDS ORDERED: LR 1000ml 1,000 ML IVLG SCH (08:51)
--- NOTE | 2016-11-09 08:51 | Anethesia Preoperative Eval ---
Anesthesia Pre-op PMH/ROS General Date of Evaluation: Nov 09, 2016 Time of Evaluation: 08:13 Anesthesiologist: Allison ASA Score: ASA 3 Mallampati Score Class I : Soft palate, uvula, fauces, pillars visible Class II: Soft palate, uvula, fauces visible Class III: Soft palate, base of uvula visible Class IV: Only hard plate visible Mallampati Classification: Class II Surgeon: Nick Diagnosis: L eye cataract Surgical Procedure: L eye cataract extraction Anesthesia History: none Family History: no anesthesia problems Allergies: Coded Allergies: NAPROXEN (Verified Allergy, Severe, 11/09/16) SKIN RASH,ITCHING ESCITALOPRAM (Verified Allergy, Intermediate, hives, 11/09/16) Medications: see eMAR Past Medical History Cardiovascular: Reports: HTN, Denies: CAD, [place], arrhythmia, other, valve dz Pulmonary: Reports: MALINI, Denies: COPD, asthma, other Gastrointestinal/Genitourinary: Reports: GERD, Denies: CRI, ESRD, other Neurologic/Psychiatric: Reports: depression/anxiety, Denies: CVA, TIA, dementia, other Endocrine: Denies: DM, hypothyroidism, other, steroids HEENT: Reports: cataract (L), cataract (R), Denies: [place] (L), [place] (R), glaucoma, other Musculoskeletal/Integumentary: Denies: DDD, DJD, OA, RA, edema, other Other: obesity PMH Narrative: as above PSxH Narrative: Cholecystectomy, hysterectomy Anesthesia Pre-op Phys. Exam Physician Exam Last Vital Signs Date Time Temp Pulse Resp B/P Pulse Ox O2 Delivery O2 Flow Rate FiO2 11/09/16 08:24 97.6 60 18 131/73 100 Room Air Constitutional: NAD Neurologic: CN 2-12 intact Cardiovascular: RRR, no M/R/G Respiratory: CTA Gastrointestinal: other - obesity Airway Exam Mallampati Score: Class II MO: full Neck: flexible ROM: full Teeth: intact Dentures: no lower, no upper Anesthesia Pre-op A/P Labs see chart Studies Pre-op Studies: EKG - NSR Risk Assessment & Plan Assessment: ASA 3 Plan: MAc Status Change Before Surgery: No Pre-Antibiotics Drug: none LUCILA CHAVEZ M.D. Nov 09, 2016 08:51
[2016-11-09] MEDS ORDERED: fentaNYL 100 mcg/2 mL IV PRN (09:00)
[2016-11-09] MEDS ORDERED: DiphenhydrAMINE 50mg/ml Inj IVP PRN (09:00)
--- NOTE | 2016-11-09 09:05 | Discharge Summary ---
Discharge Summary Discharge Summary Discharge Summary DATE OF ADMISSION:11/09/2016 DATE OF DISCHARGE:11/09/2016 REASON FOR HOSPITALIZATION: SURGERY PERFORMED: Cataract extraction with phaco and PC IOL implantation, left eye CONDITION IN THE HOSPITAL:The patient tolerated the surgery without complications. DISCHARGE CONDITION: The patient was stable at discharge. DISCHARGE MEDICATIONS: 1. Vigamox eye drops one drop q.i.d, left eye 2. Prednisolone one drop q.i.d, left eye 3. Acular one drop q4h, left eye POSTOPERATIVE ORDERS: The patient has to rest at home. No bending, No lifting, No watching Television tonight. POSTOPERATIVE FOLLOW UP: The patient will be followed in my office tomorrow morning at 7 o'clock. TAMMI ARAYA Nov 09, 2016 09:05
--- NOTE | 2016-11-09 09:07 | Brief Operative Note ---
Immediate Post Operative Note Operative Note Chief Complaint: Blurry vision, difficulty driving and reading, left eye Pre-op Diagnosis: 1. CATARACT ,LEFT EYE. Procedure: Cataract extraction with phaco and PC IOL implantation, left eye Post-op Diagnosis: same as pre-op Surgeon: Tammi Romero MD Small Boat Engineer: None Additional Surgeons: NOne Anesthesiologist: Dr. Cooper Anesthesia: MAC Specimen: none Complications: none Condition: stable Estimated Blood Loss: none Drains: none Implant(s) used?: Yes - Monofocal PC IOL implanted in the left eye without complication TAMMI ROMERO Nov 09, 2016 09:07
--- NOTE | 2016-11-09 09:08 | Immediate Post-Op Evaluation ---
Immediate Post-Op Evalulation Immediate Post-Op Evalulation Procedure: L eye cataract extraction with IOL Date of Evaluation: Nov 09, 2016 Time of Evaluation: 09:07 IV Fluids: 300 Blood Products: none Estimated Blood Loss: none Urinary Output: none Blood Pressure Systolic: 126 Blood Pressure Diastolic: 72 Pulse Rate: 63 Respiratory Rate: 20 O2 Sat by Pulse Oximetry: 99 Temperature (Fahrenheit): 97.7 Pain Score (1-10): 2 Nausea: No Vomiting: No Complications none Patient Status: awake, patent, none Hydration Status: adequate LUCILA CHAVEZ M.D. Nov 09, 2016 09:08
--- NOTE | 2016-11-09 10:22 | 48 Hour Post Anesthesia Eval ---
Post Anesthesia Evaluation Procedure: L eye cataract extraction with IOL Date of Evaluation: Nov 09, 2016 Time of Evaluation: 10:21 Blood Pressure Systolic: 132 0: 74 Pulse Rate: 62 Respiratory Rate: 20 Temperature (Fahrenheit): 97.5 O2 Sat by Pulse Oximetry: 98 Airway: patent Nausea: No Vomiting: No Pain Intensity: 2 Hydration Status: adequate Cardiopulmonary Status: stable Mental Status/LOC: patient returned to baseline Follow-up Care/Observations: n/a Post-Anesthesia Complications: none Follow-up care needed: ready to discharge LUCILA CHAVEZ M.D. Nov 09, 2016 10:22
--- NOTE | 2016-11-09 22:30 | Operative Note - Dictated ---
DATE OF OPERATION: 11/09/2016 FACILITY: [facility]. SURGEON: Estevan Romero M.D. TIP INSERTER: None. ANESTHESIOLOGIST: Fernando Cooper M.D. ANESTHESIA: Monitored anesthesia care (MAC). PREOPERATIVE DIAGNOSIS: Cataract, left eye. POSTOPERATIVE DIAGNOSIS: Cataract, left eye. SURGERY PERFORMED: Cataract extraction with phacoemulsification and posterior chamber intraocular lens implantation in the left eye. INDICATION FOR SURGERY: The patient is a 61-year-old lady with history of hypertension, hypercholesterolemia, depression, anxiety, and bipolar. She had hysterectomy in the past. She quit smoking one year ago and she smoked for at least 15 years. She is not using any illicit drugs. ALLERGIES: She is allergic to naproxen and Mucinex. CURRENT MEDICATIONS: Aspirin, Diovan, , Lyrica, omega-3, and benztropine. She is complaining of blurry vision in the left eye. On examination of the left eye, the cornea is clear. Anterior chamber is clean and quiet. The pupillary reflex is normal. There is no RAPD. There is 3+ nuclear sclerosis and 2+ cortical cataract in the eye. Funduscopy shows normal optic nerve, normal macula, and periphery retina is flat. To improve her vision in the left eye, the cataract has to be removed and posterior chamber intraocular lens has to be implanted. INFORMED CONSENT: The nature of the surgery, risks, benefits, alternatives, and potential complications were explained all in detail to the patient. The potential complications including, but not limited to bleeding, infection, posterior capsular rupture, lens subluxation, flat anterior chamber, iris prolapse, uveitis, corneal edema, macular edema, endophthalmitis, retinal detachment, loss of vision, and even loss of the eye were all explained in detail to the patient. The patient voiced understanding and accepted all the complications. The alternatives including accommodating lens, multifocal lens, toric lens, and conventional cataract surgery with limbal relaxing incision (LRI) for treatment of astigmatism were all explained in detail to the patient. The patient voiced understanding. The patient elected to have only conventional cataract surgery. Then, she signed the consent form which is in the chart. DESCRIPTION OF SURGERY AND FINDINGS: Following the patient was taken to the operating room in stable condition. Lidocaine gel Atken 3.5% active were applied to the conjunctiva of the left eye. IV sedation was given by the anesthesiologist, Dr. Cooper. After adequate anesthesia and sedation had been achieved, the left eye was prepped and draped in the usual sterile fashion for intraocular surgery. Following that, a speculum was placed in the left eye. Following that, with a Super Sharp knife a clear corneal side port was created. A 1% lidocaine without preservative (MPF) was injected into the anterior chamber. Following that viscoelastic agent Healon was injected into the anterior chamber. Following that, using a 2.8 mm keratome, a clear corneal temporal keratotomy was performed. Following that under the viscoelastic agent, an anterior capsulotomy was performed in the fashion of capsulorrhexis beautifully. Following that, whole viscoelastic agent was removed from the anterior chamber. Following that, using balanced salt solution, hydrodissection and hydrodelineation was performed and the nucleus was freed. Following that, viscoelastic agent Healon was injected into the anterior chamber to protect the endothelium of the cornea. Following that, using a phacoemulsification machine in the fashion of horizontal chop, the nucleus was removed in toto. Following that, using irrigation aspiration unit, cortical material was removed from the capsular bag and the capsular bag was polished. Following that, the capsular bag was filled with viscoelastic agent, Healon. Following that, a +21 diopter ZCB00 foldable PCIOL with serial number #[id number] was inserted into the capsular bag. Using a Sinskey hook, the lens was manipulated and put in the proper position. Following that, the viscoelastic agent was removed from the anterior and posterior part of the lens. The anterior chamber was filled with balanced salt solution. Following that, the wounds were hydrated with balanced salt solution. Following that, the wound was checked for leakage and there was no leakage. Following that, Vigamox eye drops were applied to the conjunctiva of the left eye. The patient tolerated the surgery without complications. At the end of the surgery, the eye was patched with a clear sterile fenestrated shield. Following the patient was transferred to the recovery room. In the recovery room, 125 mg Diamox by mouth stat. Postoperative orders and directions were given to the patient. The patient will be discharged home upon stabilization. The patient will be followed in my office tomorrow morning at 9:30. Estevan Romero M.D. DR: LIZBET JOB#: [id number] CC:
== END 2016-11-09 10:30 | disposition home or self-care (01) ==
LOC: SUR 07:44
DX: H25.12 Age-related nuclear cataract, left eye (principal); H25.012 Cortical age-related cataract, left eye; I10 Essential (primary) hypertension; E78.00 Pure hypercholesterolemia, unspecified; F31.9 Bipolar disorder, unspecified; F41.0 Panic disorder [episodic paroxysmal anxiety]; E66.01 Morbid (severe) obesity due to excess calories; Z68.41 Body mass index [BMI] 40.0-44.9, adult; G47.33 Obstructive sleep apnea (adult) (pediatric); K21.9 Gastro-esophageal reflux disease without esophagitis; E04.1 Nontoxic single thyroid nodule; Z87.891 Personal history of nicotine dependence; Z90.710 Acquired absence of both cervix and uterus; Z90.49 Acquired absence of other specified parts of digestive tract; Z88.6 Allergy status to analgesic agent; Z88.8 Allergy status to other drugs, medicaments and biological substances
CPT/HCPCS: 66984; J0171; J1100; J2250; J2704; J3010; J7120; V2632; 94003; 94150

== ENCOUNTER 2016-11-23 06:12 | Day surgery (SDC) | payer MEDICARE, OTHER ==
[2016-11-23] VITALS (9 sets, daily range): BP systolic 118–141; BP diastolic 68–82
[~2016-11-23] VITALS: Ht 154.9 cm; Wt 98.4 kg
[~2016-11-23 06:12] MED LIST changes: +LATUDA20 MG PO; +VALSARTAN-HCTZ1 EAC2 ORAL
[2016-11-23] MEDS ORDERED: Akten 3.5% 1ml Btl ONE (06:56)
[2016-11-23] MEDS ORDERED: Phenylephrine 10% Opth Soln 5ml ONE (06:56)
[2016-11-23] MEDS ORDERED: Vigamox Opth Soln ONE (06:56)
[2016-11-23] MEDS ORDERED: Tropicamide 1% Opth Soln ONE (06:56)
[2016-11-23] MEDS ORDERED: fentaNYL 100 mcg/2 mL IV ONE (07:00)
[2016-11-23] MEDS: Phenylephrine 10% Opth Soln 5ml RIGHT EYE SCH ×3 (07:14→07:48)
[2016-11-23] MEDS: Vigamox Opth Soln RIGHT EYE SCH ×3 (07:14→07:48)
[2016-11-23] MEDS: Tropicamide 1% Opth Soln RIGHT EYE SCH ×3 (07:14→07:48)
[2016-11-23] MEDS: Akten 3.5% 1ml Btl RIGHT EYE SCH ×3 (07:14→07:48)
[2016-11-23] MEDS ORDERED: DiphenhydrAMINE 50mg/ml Inj ONE (08:10)
--- NOTE | 2016-11-23 08:13 | Anethesia Preoperative Eval ---
Anesthesia Pre-op PMH/ROS General Date of Evaluation: Nov 23, 2016 Anesthesiologist: Will ASA Score: ASA 3 Mallampati Score Class I : Soft palate, uvula, fauces, pillars visible Class II: Soft palate, uvula, fauces visible Class III: Soft palate, base of uvula visible Class IV: Only hard plate visible Mallampati Classification: Class II Surgeon: Nick Diagnosis: Right cataract Surgical Procedure: Right cataract extraction with IOL Anesthesia History: none Family History: no anesthesia problems Allergies: Coded Allergies: NAPROXEN (Verified Allergy, Severe, 11/09/16) SKIN RASH,ITCHING ESCITALOPRAM (Verified Allergy, Intermediate, hives, 11/09/16) Medications: see eMAR Past Medical History Cardiovascular: Reports: HTN, arrhythmia, other - HLD, Denies: CAD, [place], valve dz Pulmonary: Reports: MALINI, Denies: asthma, COPD, other Gastrointestinal/Genitourinary: Reports: GERD, Denies: CRI, ESRD, other Neurologic/Psychiatric: Reports: depression/anxiety, TIA, Denies: dementia, CVA, other Endocrine: Denies: DM, hypothyroidism, steroids, other HEENT: Reports: cataract (R), Denies: cataract (L), glaucoma, [place] (L), [place] (R), other Hematology/Immune: Denies: anemia, DVT, bleeding disorder, other Musculoskeletal/Integumentary: Reports: OA, Denies: RA, DJD, DDD, edema, other Other: obesity PSxH Narrative: lap franca, GLORIA, Left cataract Anesthesia Pre-op Phys. Exam Physician Exam Last Vital Signs Date Time Temp Pulse Resp B/P (MAP) Pulse Ox O2 Delivery O2 Flow Rate FiO2 11/23/16 07:17 97.7 57 20 141/82 99 Room Air Constitutional: NAD Cardiovascular: RRR Respiratory: CTA Airway Exam Mallampati Score: Class II MO: limited ROM: limited Anesthesia Pre-op A/P Labs see chart Risk Assessment & Plan Assessment: ASA III Plan: MAC Status Change Before Surgery: No Pre-Antibiotics Drug: N/A MARELY AYERS M.D. Nov 23, 2016 08:13
[2016-11-23] MEDS ORDERED: LR 1000ml 1,000 ML IVLG SCH (08:34)
--- NOTE | 2016-11-23 08:37 | Immediate Post-Op Evaluation ---
Immediate Post-Op Evalulation Immediate Post-Op Evalulation Procedure: Right cataract extraction with IOL Date of Evaluation: Nov 23, 2016 Time of Evaluation: 10:01 IV Fluids: 400 Blood Products: 0 Estimated Blood Loss: 0 Urinary Output: 0 Blood Pressure Systolic: 125 Blood Pressure Diastolic: 71 Pulse Rate: 60 Respiratory Rate: 16 O2 Sat by Pulse Oximetry: 99 Temperature (Fahrenheit): 97.1 Pain Score (1-10): 0 Nausea: No Vomiting: No Complications 0 Patient Status: awake, reacts, patent, none Hydration Status: adequate Drug: N/A MARELY AYERS M.D. Nov 23, 2016 08:37
--- NOTE | 2016-11-23 08:38 | 48 Hour Post Anesthesia Eval ---
Post Anesthesia Evaluation Procedure: Right cataract extraction with IOL Date of Evaluation: Nov 23, 2016 Airway: patent Nausea: No Vomiting: No Pain Intensity: 0 Hydration Status: adequate Cardiopulmonary Status: at baseline Mental Status/LOC: patient returned to baseline Post-Anesthesia Complications: 0 Follow-up care needed: ready to discharge MARELY AYERS M.D. Nov 23, 2016 08:38
[2016-11-23] MEDS ORDERED: DiphenhydrAMINE 50mg/ml Inj IVP PRN (08:45)
[2016-11-23] MEDS ORDERED: Ketorolac Tromethamine Opth Soln ONE (08:58)
[2016-11-23] MEDS ORDERED: Lidocaine 1% MPF 10mg/ml 5ml ONE ×2 (09:00→10:36)
[2016-11-23] MEDS ORDERED: NS Irrig 1000ml ONE (09:00)
[2016-11-23] MEDS ORDERED: Sterile Water Irrig 1000ml IRRIG ONE (09:00)
[2016-11-23] MEDS ORDERED: Midazolam 2mg/2ml Inj ONE (09:00)
[2016-11-23] MEDS ORDERED: LR 1000ml ONE (09:00)
--- NOTE | 2016-11-23 10:02 | Discharge Summary ---
Discharge Summary Discharge Summary Discharge Summary DATE OF ADMISSION: 11/23/2016 DATE OF DISCHARGE: 11/23/2016 REASON FOR HOSPITALIZATION: cataract, right eye SURGERY PERFORMED: Cataract extraction with phaco and PC IOl implantation, right eye CONDITION IN THE HOSPITAL:The patient tolerated the surgery without complications. DISCHARGE CONDITION: The patient was stable at discharge. DISCHARGE MEDICATIONS: 1. Vigamox eye drops one drop q.i.d, right eye 2. Prednisolone one drop q.i.d, right eye 3. Acular, one drop q4h, right eye POSTOPERATIVE ORDERS: The patient has to rest at home. No bending, No lifting, No watching Television tonight. POSTOPERATIVE FOLLOW UP: The patient will be followed in my office tomorrow morning at 7 o'clock. TAMMI ARAYA Nov 23, 2016 10:02
--- NOTE | 2016-11-23 10:06 | Brief Operative Note ---
Immediate Post Operative Note Operative Note Chief Complaint: Blurry vision, difficulty driving and reading, right eye Pre-op Diagnosis: Cataract, right eye. Procedure: Cataract extraction with phaco and PC IOL implantation, right eye Post-op Diagnosis: same as pre-op Surgeon: Tammi Romero MD. Commercial Floor Covering Installer: None Additional Surgeons: None Anesthesiologist: Dr. Solis Anesthesia: MAC Specimen: none Complications: none Condition: stable Fluids: 500 ml LR Estimated Blood Loss: none Drains: none Packing: None Implant(s) used?: Yes - Monofocal PC IOl implanted in the right eye without complication TAMMI ROMERO Nov 23, 2016 10:06
--- NOTE | 2016-11-23 10:09 | Pre-Procedure Note/Attestation ---
Pre-Procedure Note/Attestation Complete Prior to Procedure Planned Procedure: right Procedure Narrative: Cataract extraction with ohaco and PC IOL implantation, right eye Indications for Procedure Pre-Operative Diagnosis: Cataract, right eye. Attestation I attest that I discussed the nature of the procedure; its benefits; risks and complications; and alternatives (and the risks and benefits of such alternatives ), prior to the procedure, with the patient (or the patient's legal dermatology sales representative). I attest that, if there was a reasonable possibility of needing a blood transfusion, the patient (or the patient's legal dermatology sales representative) was given the [facility] standardized written summary, pursuant to the [place] Blood Safety Act ([place] Health and Safety Code # 1645, as amended). I attest that I re-evaluated the patient just prior to the surgery and that there has been no change in the patient's H&P, except as documented below: TAMMI ARAYA Nov 23, 2016 10:09
[2016-11-23] MEDS ORDERED: BSS 500ml btl ONE (10:36)
[2016-11-23] MEDS ORDERED: EPINEPHrine 1mg/1ml Amp ONE (10:37)
[2016-11-23] MEDS ORDERED: BSS 15ml BTL ONE (10:37)
[2016-11-23] MEDS ORDERED: Dexamethasone 4mg/ml vial ONE (10:37)
[2016-11-23] MEDS ORDERED: Povidone-Iodine 5% opth solution ONE (10:37)
[2016-11-23] MEDS ORDERED: Sodium Hyaluronate 10 mg/ml 0.85ml ONE (10:37)
--- NOTE | 2016-11-23 22:15 | Operative Note - Dictated ---
DATE OF OPERATION: 11/23/2016 FACILITY: [facility]. SURGEON: Estevan Romero M.D. JUNIOR JAVA DEVELOPER: None. ANESTHESIOLOGIST: Dr. Solis. ANESTHESIA: Monitored anesthesia care (MAC). PREOPERATIVE DIAGNOSIS: Cataract, right eye. POSTOPERATIVE DIAGNOSIS: Cataract, right eye. SURGERY PERFORMED: Cataract extraction with phacoemulsification and posterior chamber intraocular lens implantation in the right eye. INDICATION FOR SURGERY: The patient is a 61-year-old lady with history of hypertension, hypercholesterolemia, depression, anxiety, and bipolar disorder. She had hysterectomy in the past. She quit smoking one year ago. She smoked for at least 15 years. She is not using any illicit drugs. She is allergic to naproxen and Mucinex. Current medications including aspirin, Diovan, Lyrica, omega 3, and benztropine. She is complaining of blurry vision in the right eye. She had cataract surgery in the left eye two weeks ago and she is happy with the result. On examination of the right eye, the cornea is clear. Anterior chamber is clean and quiet. The pupillary reflex is normal. There is no RAPD. There is 3+ nuclear sclerosis and 2+ cortical cataract in the right eye. Funduscopy shows normal optic disc, normal macula, and periphery retina is flat. To improve her vision in the right eye, the cataract has to be removed and posterior chamber intraocular lens has to be implanted. INFORMED CONSENT: The nature of the surgery, risks, benefits, alternatives, and potential complications were explained all in detail to the patient. The potential complications including, but not limited to bleeding, infection, posterior capsular rupture, lens subluxation, flat anterior chamber, iris prolapse, uveitis, corneal edema, macular edema, endophthalmitis, retinal detachment, loss of vision, and even loss of the eye were all explained in detail to the patient. The patient voiced understanding and accepted all the complications. The alternatives including accommodating lenses, multifocal lens, toric lens, and conventional cataract surgery with limbal relaxing incision (LRI) for treatment of astigmatism were all explained in detail to the patient. The patient voiced understanding. The patient elected to have only conventional cataract surgery in the right eye. Then, she signed the consent form, which is in the chart. DESCRIPTION OF SURGERY AND FINDINGS: Following that, the patient was taken to the operation room in a stable condition. Lidocaine gel Akten 3.5% were applied to the conjunctiva of the right eye. IV sedation was given by the anesthesiologist, Dr. Solis. After adequate anesthesia and sedation had been achieved, the right eye was prepped and draped in a sterile fashion for intraocular surgery. Following that, a speculum was placed in the right eye. Following that, with a Super Sharp knife, a clear corneal side port was created. A 1% lidocaine without preservative (MPF) was injected into the anterior chamber. Following that, viscoelastic agent Healon was injected into the anterior chamber. Following that, using a 2.8 mm keratome, a clear corneal temporal keratotomy was performed. Following that, under the viscoelastic agent, an anterior capsulotomy was performed in the fashion of capsulorrhexis beautifully. Following that, whole viscoelastic agent was removed from the anterior chamber. Following that, using balanced salt solution, hydrodissection and hydrodelineation was performed and the nucleus was freed. Following that, viscoelastic agent Healon was injected into the anterior chamber to protect the endothelium of the cornea. Following that, using a phacoemulsification machine in the fashion of horizontal chop, the nucleus was removed in toto. Following that, using irrigation and aspiration unit, cortical material was removed from the capsular bag and the capsular bag was polished. Following that, the capsular bag was filled with viscoelastic agent Healon. Following that, a +21 diopter ZCB00 foldable PCIOL with serial number [id number] was inserted into the capsular bag. Using a Sinskey hook, the lens was manipulated in the proper position. Following that, the viscoelastic agent was removed from the anterior chamber and the posterior part of the lens. The anterior chamber was filled with balanced salt solution. Following that, the wounds were hydrated with balanced salt solution. Following that, the wound was checked for leakage, there was no leakage. Following that, Vigamox eye drops were applied to the conjunctiva of the right eye. The patient tolerated the surgery without complications. At the end of the surgery, the eye was patched with a clear sterile fenestrated shield. Following that, the patient was transferred to the recovery room. In the recovery room, 125 mg Diamox was given by mouth stat. Postoperative orders and directions were given to the patient. The patient will be discharged home upon stabilization. The patient will be followed in my office tomorrow morning at 9:30 a.m. Estevan Romero M.D. DR: SUMAN JOB#: [id number] CC:
== END 2016-11-23 11:15 | disposition home or self-care (01) ==
LOC: SUR 06:12
DX: H25.11 Age-related nuclear cataract, right eye (principal); H25.011 Cortical age-related cataract, right eye; I10 Essential (primary) hypertension; E66.01 Morbid (severe) obesity due to excess calories; Z68.41 Body mass index [BMI] 40.0-44.9, adult; E78.5 Hyperlipidemia, unspecified; G47.33 Obstructive sleep apnea (adult) (pediatric); K21.9 Gastro-esophageal reflux disease without esophagitis; M19.90 Unspecified osteoarthritis, unspecified site; F31.9 Bipolar disorder, unspecified; F41.9 Anxiety disorder, unspecified; I83.90 Asymptomatic varicose veins of unspecified lower extremity; Z86.73 Personal history of transient ischemic attack (TIA), and cerebral infarction without residual deficits; Z79.82 Long term (current) use of aspirin; Z90.49 Acquired absence of other specified parts of digestive tract; Z90.710 Acquired absence of both cervix and uterus; Z87.891 Personal history of nicotine dependence; Z88.6 Allergy status to analgesic agent; Z88.8 Allergy status to other drugs, medicaments and biological substances
CPT/HCPCS: 94003; 94150; J2250

== ENCOUNTER 2017-01-22 15:05 | Emergency (ER) | payer MEDICARE, OTHER ==
[~2017-01-22] VITALS: Ht 152.4 cm; Wt 96.6 kg
[~2017-01-22 15:05] MED LIST changes: -acetaZOLAMIDE 125mg tab ORAL ONE
[2017-01-22 15:29] LABS: APPEARANCE,URINE CLEAR; BILIRUBIN, URINE NEGATIVE (NEGATIVE); GLUCOSE, URINE (UA) NEGATIVE (NEGATIVE); KETONES,URINE 1+ (NEGATIVE); LEUKOCYTE ESTERASE ,URINE 1+ (NEGATIVE); NITRITE,URINE NEGATIVE (NEGATIVE); PH,URINE 5 (4.5-8.0); PROTEIN,URINE NEGATIVE (NEGATIVE); UROBILINOGEN,URINE 4 MG/DL (0.0-1.0)
[2017-01-22 15:34] LABS: COLOR,URINE YELLOW
[2017-01-22] MEDS ORDERED: NITROFURANTOIN100 M2 ORAL (15:53)
[2017-01-22 16:02] VITALS: BP 111/75
--- NOTE | 2017-01-22 16:46 | Emergency Room Report ---
History of Present Illness General Chief Complaint: Female Urogenital Problems Source: Patient Present Illness HPI The patient is a 61-year-old female with a presenting for dysuria and increased urinary frequency over the past week. Pain is described as a 7/10 burning sensation which occurs during urination only. Pain does not radiate. She denies any abdominal pain or back pain. She denies vaginal discharge. She denies any other symptoms including nausea, vomiting, fever, chills Allergies: Coded Allergies: NAPROXEN (Verified Allergy, Severe, 11/09/16) SKIN RASH,ITCHING ESCITALOPRAM (Verified Allergy, Intermediate, hives, 11/09/16) Patient History Past Medical History: see triage record Pertinent Family History: none Reviewed Nursing Documentation: PMH: Agreed, PSxH: Agreed Nursing Documentation-PMH Past Medical History: No History, Except For Hx Cardiac Problems: Yes Hx Hypertension: Yes Hx Cancer: No Hx Gastrointestinal Problems: No Hx Dialysis: No Hx Neurological Problems: Yes Hx Transient Ischemic Attacks: Yes - 2011, 2012 Hx Memory Loss: Yes - RESOLVED Hx Speech Problem: Yes - RESOLVED Hx Dizziness: Yes - RESOLVED Hx Weakness: Yes - RESOLVED Review of Systems All Other Systems: negative except mentioned in HPI Physical Exam Vital Signs Date Time Temp Pulse Resp B/P (MAP) Pulse Ox O2 Delivery O2 Flow Rate FiO2 01/22/17 15:11 98.2 98 16 103/64 96 Room Air Sp02 EP Interpretation: reviewed, normal General Appearance: no apparent distress, alert, GCS 15, non-toxic Head: normocephalic, atraumatic Eyes: bilateral eye normal inspection, bilateral eye PERRL ENT: hearing grossly normal, normal pharynx, no angioedema, normal voice Neck: full range of motion, supple/symm/no masses Respiratory: chest non-tender, lungs clear, normal breath sounds, speaking full sentences Cardiovascular #1: regular rate, rhythm, no edema Gastrointestinal: normal bowel sounds, non tender, soft, non-distended, no guarding, no rebound Rectal: deferred Musculoskeletal: back normal, gait/station normal, normal range of motion, non- tender Neurologic: alert, oriented x3, responsive, motor strength/tone normal, sensory intact, speech normal Psychiatric: judgement/insight normal, memory normal, mood/affect normal, no suicidal/homicidal ideation Skin: normal color, no rash, warm/dry, well hydrated Medical Decision Making PA Attestation Dr. Fowler is my supervising physician. Patient management was discussed with my supervising physician Diagnostic Impression: Primary Impression: Urinary tract infection Qualified Codes: N39.0 - Urinary tract infection, site not specified ER Course The patient is a 61-year-old female with a presenting for dysuria and increased urinary frequency over the past week Differential diagnosis considered but not limited to: UTI, BV, yeast infection, pyelonephritis, PID PE: Vitals WNL. NAD. Abdomen: Normal appearance. Non distended. No ecchymosis. Normal BS. TTP over suprapubic region only. No McBurney point tenderness. No guarding. No CVA tenderness UA: Negative Nitrite. Few bacteria and WBCs. 1+ LE The patient discharged home with a prescription for Macrobid and is given ER precautions. Laboratory Tests Test 01/22/17 15:15 Urine Color Yellow Urine Appearance Clear Urine pH 5 (4.5-8.0) Urine Specific [place] 1.020 (1.005-1.035) Urine Protein Negative (NEGATIVE) Urine Glucose (UA) Negative (NEGATIVE) Urine Ketones 1+ (NEGATIVE) H Urine Occult Blood Negative (NEGATIVE) Urine Nitrite Negative (NEGATIVE) Urine Bilirubin Negative (NEGATIVE) Urine Urobilinogen 4 MG/DL (0.0-1.0) H Urine Leukocyte Esterase 1+ (NEGATIVE) H Urine RBC 0-2 /HPF (0 - 2) Urine WBC 2-4 /HPF (0 - 2) Urine Squamous Epithelial Cells Moderate /LPF (NONE/OCC) H Urine Bacteria Few /HPF (NONE) Lab Results Impression Negative Nitrite. Few bacteria and WBCs Last Vital Signs Date Time Temp Pulse Resp B/P (MAP) Pulse Ox O2 Delivery O2 Flow Rate FiO2 01/22/17 16:02 98.2 66 18 111/75 97 Room Air Status: improved Disposition: HOME, SELF-CARE Condition: Improved Scripts Nitrofurantoin Monohyd/M-Cryst* (MACROBID 100 MG*) 100 Mg Capsule 100 MG ORAL EVERY 12 HOURS, #14 CAP Prov: ABHINAV BLACKMON P.A. 01/22/17 Referrals: Sukh Castañeda MD (PCP) Patient Instructions: Urinary Tract Infection Additional Instructions: I discussed my findings with the patient. All questions and concerns have been answered. Treatment and medication compliance have been addressed. I advised the patient that they need to follow up with PMD in 3-5 days. Return to ED if symptoms worsen, new symptoms arise, or if needed for any reason. Patient verbalized understanding of discharge instructions. ABHINAV BLACKMON Jan 22, 2017 16:46
== END 2017-01-22 16:05 | disposition home or self-care (01) ==
LOC: EMR 15:45
DX: N39.0 Urinary tract infection, site not specified (principal); I10 Essential (primary) hypertension; Z86.73 Personal history of transient ischemic attack (TIA), and cerebral infarction without residual deficits; Z88.6 Allergy status to analgesic agent
CPT/HCPCS: 81003; 99283

== ENCOUNTER 2017-02-03 11:42 | Emergency (ER) | payer MEDICARE, OTHER ==
[~2017-02-03] VITALS: Ht 157.5 cm; Wt 90.7 kg
[~2017-02-03 11:42] MED LIST changes: +NITROFURANTOIN100 M2 ORAL
[2017-02-03 12:08] VITALS: BP 121/77
[2017-02-03] MEDS ORDERED: Diclofenac 25mg tab ORAL ONE ×2 (12:15→12:30)
[2017-02-03] MEDS ORDERED: DICLOFENAC SOD100 MG PO (12:18)
[2017-02-03 12:27] VITALS: BP 121/77
--- NOTE | 2017-02-03 12:39 | Emergency Room Report ---
History of Present Illness General Chief Complaint: Back Pain-No Injury Source: Patient Present Illness HPI The patient is a 61-year-old female presenting for lower back pain. She states that this is a chronic condition for the past 5 years. She sees her primary doctor who diagnosed her with osteoarthritis and she takes diclofenac daily. She states that she recently ran out and pain has returned. She denies any new injury. It is a 9/10 dull ache to lower back and does not radiate. Worse with movement. She denies any other complaints but she states that she is just here for medication refill. Allergies: Coded Allergies: NAPROXEN (Verified Allergy, Severe, 11/09/16) SKIN RASH,ITCHING ESCITALOPRAM (Verified Allergy, Intermediate, hives, 11/09/16) Patient History Past Medical History: see triage record Pertinent Family History: none Reviewed Nursing Documentation: PMH: Agreed, PSxH: Agreed Nursing Documentation-PMH Hx Cardiac Problems: Yes Hx Hypertension: Yes Hx Cancer: No Hx Gastrointestinal Problems: No Hx Dialysis: No Hx Neurological Problems: Yes Hx Transient Ischemic Attacks: Yes - 2011, 2012 Hx Memory Loss: Yes - RESOLVED Hx Speech Problem: Yes - RESOLVED Hx Dizziness: Yes - RESOLVED Hx Weakness: Yes - RESOLVED Review of Systems All Other Systems: negative except mentioned in HPI Physical Exam Vital Signs Date Time Temp Pulse Resp B/P (MAP) Pulse Ox O2 Delivery O2 Flow Rate FiO2 02/03/17 12:00 98.1 77 20 121/77 99 Room Air Sp02 EP Interpretation: reviewed, normal General Appearance: no apparent distress, alert, GCS 15, non-toxic Head: normocephalic, atraumatic Eyes: bilateral eye normal inspection, bilateral eye PERRL ENT: hearing grossly normal, normal pharynx, no angioedema, normal voice Neck: full range of motion, supple/symm/no masses Respiratory: chest non-tender, lungs clear, normal breath sounds, speaking full sentences Cardiovascular #1: regular rate, rhythm, no edema Musculoskeletal: normal inspection, tender - diffusely over L spine and paraspinal muscles Neurologic: alert, oriented x3, responsive, motor strength/tone normal, sensory intact, speech normal Psychiatric: judgement/insight normal, memory normal, mood/affect normal, no suicidal/homicidal ideation Skin: normal color, no rash, warm/dry, well hydrated Medical Decision Making PA Attestation Dr. Fowler is my supervising physician. Patient management was discussed with my supervising physician Diagnostic Impression: Primary Impression: Back pain Qualified Codes: M54.5 - Low back pain; G89.29 - Other chronic pain ER Course The patient is a 61-year-old female presenting for lower back pain. Ddx considered include but not limited to lumbar strain, degenerative disease, chronic pain, among others PE: NAD Back: There is tenderness to palpation over the lumbar spine and paraspinal muscles. No step-offs. Normal gait. Active range of motion is intact The patient is given her refill of diclofenac and will follow up with primary doctor. ER precautions are given Last Vital Signs Date Time Temp Pulse Resp B/P (MAP) Pulse Ox O2 Delivery O2 Flow Rate FiO2 02/03/17 12:29 98.1 02/03/17 12:27 86 20 121/77 99 Room Air Status: improved Disposition: HOME, SELF-CARE Condition: Improved Scripts Diclofenac Sodium (DICLOFENAC SODIUM) 100 Mg Tab.er.24h 100 MG PO DAILY, #30 TAB Prov: ABHINAV BLACKMON 02/03/17 Patient Instructions: Back Pain, Adult Additional Instructions: I discussed my findings with the patient. All questions and concerns have been answered. Treatment and medication compliance have been addressed. I advised the patient that they need to follow up with PMD in 3-5 days. Return to ED if symptoms worsen, new symptoms arise, or if needed for any reason. Patient verbalized understanding of discharge instructions. ABHINAV BLACKMON Feb 03, 2017 12:39
== END 2017-02-03 12:40 | disposition home or self-care (01) ==
LOC: EMR 12:00
DX: M54.5 Low back pain (principal); G89.29 Other chronic pain; I10 Essential (primary) hypertension; Z86.73 Personal history of transient ischemic attack (TIA), and cerebral infarction without residual deficits
CPT/HCPCS: 99283

== ENCOUNTER 2017-03-08 06:32 | Emergency (ER) | payer MEDICARE, OTHER ==
[~2017-03-08] VITALS: Ht 152.4 cm; Wt 92.5 kg
[2017-03-08 06:45] VITALS: BP 111/68
[2017-03-08] MEDS ORDERED: Morphine Sulfate 4mg/ml Inj IM ONE (07:15)
[2017-03-08] MEDS ORDERED: Ketorolac 30mg Inj IM ONE (07:15)
[2017-03-08 08:16] VITALS: BP 107/70
--- NOTE | 2017-03-08 08:19 | Emergency Room Report ---
History of Present Illness General Chief Complaint: Lower Back Pain or Injury Source: Patient Present Illness HPI 61-year-old female presents to ED complaining of back pain. States she had a mechanical fall 2 days ago at home. Patient states she has chronic history of back pain. 910, throbbing, nonradiating. Patient is also complaining of some left knee pain. Status post meniscal repair last week. States she's been able to ambulate without difficulty. No other aggravating relieving factors. Denies any other associated symptoms Allergies: Coded Allergies: NAPROXEN (Verified Allergy, Severe, 11/09/16) SKIN RASH,ITCHING ESCITALOPRAM (Verified Allergy, Intermediate, hives, 11/09/16) Patient History Past Medical History: HTN, CVA/TIA Past Surgical History: other - L knee mensical repair Pertinent Family History: none Social History: Denies: smoking, alcohol use, drug use Now: No Immunizations: UTD Reviewed Nursing Documentation: PMH: Agreed, PSxH: Agreed Nursing Documentation-PMH Hx Cardiac Problems: Yes - LEFT KNEE SURGERY Hx Hypertension: Yes Hx Cancer: No Hx Gastrointestinal Problems: No Hx Dialysis: No Hx Neurological Problems: Yes Hx Transient Ischemic Attacks: Yes - 2011, 2013 Hx Memory Loss: Yes - RESOLVED Hx Speech Problem: Yes - RESOLVED Hx Dizziness: Yes - RESOLVED Hx Weakness: Yes - RESOLVED Review of Systems All Other Systems: negative except mentioned in HPI Physical Exam Vital Signs Date Time Temp Pulse Resp B/P (MAP) Pulse Ox O2 Delivery O2 Flow Rate FiO2 03/08/17 06:38 97.7 67 16 111/68 100 Room Air Sp02 EP Interpretation: reviewed, normal General Appearance: alert, GCS 15, non-toxic, obese Head: normocephalic, atraumatic Eyes: bilateral eye normal inspection, bilateral eye PERRL ENT: normal ENT inspection Neck: normal inspection Respiratory: chest non-tender, lungs clear, normal breath sounds, speaking full sentences Cardiovascular #1: regular rate, rhythm, no edema Gastrointestinal: normal inspection Rectal: deferred Genitourinary: no CVA tenderness, no vertebral tenderness Musculoskeletal: other - paraspinal lumbar pain, tender - surgical site on L knee C/D/I. full ROM noted. Neurologic: alert, oriented x3, responsive, motor strength/tone normal, sensory intact, speech normal Psychiatric: normal inspection Skin: normal inspection Lymphatic: normal inspection Medical Decision Making Diagnostic Impression: Primary Impression: Back pain Qualified Codes: M54.5 - Low back pain; G89.29 - Other chronic pain ER Course Hospital Course 61-year-old female presents ED complaining of lower back pain. s/p fall Differential diagnoses include: pyelonephritis, kidney stone, muscle strain, Lspine fracture Clinical course Patient placed on stretcher. After initial history and physical, physical exam reveals a female in no acute distress. There is no vertebral body tenderness. No step-off or deformity. Paraspinal tenderness noted On CURES; patient has recent narcotic prescriptions filled. I explained to patient that cannot provide additional prescriptions. I ordered toradol and morphine for pain. Upon reassessment patient states pain has improved. Diagnosis - back pain Stable and discharged to home. Followup with PMD. Return to ED if symptoms recur or worsen Last Vital Signs Date Time Temp Pulse Resp B/P (MAP) Pulse Ox O2 Delivery O2 Flow Rate FiO2 03/08/17 06:45 97.7 16 111/68 100 Room Air 03/08/17 06:38 67 Status: improved Disposition: HOME, SELF-CARE Condition: Stable Referrals: Sukh Castañeda MD Patient Instructions: Back Pain, Adult NASH ALMARAZ M.D. Mar 08, 2017 08:19
[2017-03-08 08:27] VITALS: BP 107/70
== END 2017-03-08 08:18 | disposition home or self-care (01) ==
LOC: EMR 07:08
DX: M54.5 Low back pain (principal); I10 Essential (primary) hypertension; Z86.73 Personal history of transient ischemic attack (TIA), and cerebral infarction without residual deficits
CPT/HCPCS: 96372; 99284; J1885; J2270

== ENCOUNTER 2017-04-12 11:00 | Outpatient (RCR) | payer MEDICARE, OTHER | END 2017-04-20 | disposition home or self-care (01) | LOC: PTY 11:00 | DX: M47.816 Spondylosis without myelopathy or radiculopathy, lumbar region (principal); M17.12 Unilateral primary osteoarthritis, left knee | CPT/HCPCS: 97110; 97161; G8981; G8982 ==

== ENCOUNTER 2017-05-02 10:45 | Outpatient (RCR) | payer MEDICARE, OTHER | END 2017-05-18 | disposition home or self-care (01) | LOC: PTY 10:45 | DX: M47.816 Spondylosis without myelopathy or radiculopathy, lumbar region (principal); M17.12 Unilateral primary osteoarthritis, left knee ==

== ENCOUNTER 2017-05-17 07:42 | Day surgery (SDC) | payer MEDICARE, OTHER ==
--- NOTE | 2017-05-13 11:25 | Pre-Procedure Note/Attestation ---
Pre-Procedure Note/Attestation Complete Prior to Procedure Planned Procedure: bilateral Procedure Narrative: 1- Ptosis correction, upper lids 2- Entropion correction upper lids 3- Blepharoplasty, upper lids Indications for Procedure Pre-Operative Diagnosis: 1- Ptosis ,upper lids 2- Entropion, upper lids 3- Blepharochalasis,upper lids. Attestation I attest that I discussed the nature of the procedure; its benefits; risks and complications; and alternatives (and the risks and benefits of such alternatives ), prior to the procedure, with the patient (or the patient's legal technical service representative). I attest that, if there was a reasonable possibility of needing a blood transfusion, the patient (or the patient's legal technical service representative) was given the [place] [facility] standardized written summary, pursuant to the [place] Blood Safety Act ([place] Health and Safety Code # 1645, as amended). I attest that I re-evaluated the patient just prior to the surgery and that there has been no change in the patient's H&P, except as documented below: TAMMI ARAYA May 13, 2017 11:25
[~2017-05-17] VITALS: Ht 152.4 cm; Wt 93.4 kg
[2017-05-17] VITALS (8 sets, daily range): BP systolic 100–123; BP diastolic 55–68
[~2017-05-17 07:42] MED LIST changes: +Akten 3.5% 1ml Btl BOTH EYES ONE; +Maxitrol Opth Oint 3.5gm BOTH EYES ONE
[2017-05-17] MEDS ORDERED: Akten 3.5% 1ml Btl ONE (08:17)
[2017-05-17 08:47] LABS: BASOPHILS % (AUTO) 1.1 % (0.0-2.0); EOSINOPHILS % (AUTO) 6.2 % (0.0-3.0); HEMATOCRIT 38.4 % (37.0-47.0); HEMOGLOBIN 12.8 G/DL (12.0-16.0); LYMPHOCYTES % (AUTO) 47.1 % (20.0-45.0); MEAN CORPUSCULAR VOLUME 95 FL (80-99); MONOCYTES % (AUTO) 8.1 % (1.0-10.0); NEUTROPHILS % (AUTO) 37.5 % (45.0-75.0); PLATELET COUNT 295 K/UL (150-450); RED BLOOD COUNT 4.05 M/UL (4.20-5.40); RED CELL DISTRIBUTION WIDTH 11.7 % (11.6-14.8); WHITE BLOOD COUNT 6.3 K/UL (4.8-10.8)
[2017-05-17 09:03] LABS: ANION GAP 6 mmol/L (5-15); BLOOD UREA NITROGEN 17 mg/dL (7-18); CALCIUM 8.8 MG/DL (8.5-10.1); CARBON DIOXIDE 31 MMOL/L (21-32); CHLORIDE 104 MMOL/L (98-107); CREATININE 1.1 MG/DL (0.55-1.30); POTASSIUM 3.3 MMOL/L (3.5-5.1); SODIUM 141 MMOL/L (136-145)
[2017-05-17] MEDS ORDERED: Propofol 200mg/20ml IV ONE (10:30)
[2017-05-17] MEDS ORDERED: fentaNYL 100 mcg/2 mL IV ONE (10:30)
[2017-05-17] MEDS ORDERED: Midazolam 2mg/2ml Inj ONE ×2 (10:30)
[2017-05-17] MEDS ORDERED: Sterile Water Irrig 1000ml IRRIG ONE (10:30)
[2017-05-17] MEDS ORDERED: NS Irrig 1000ml ONE (10:30)
[2017-05-17] MEDS ORDERED: Tetracaine 0.5% Opth 4ml Soln ONE (10:40)
[2017-05-17] MEDS ORDERED: Povidone-Iodine 5% opth solution ONE (10:40)
[2017-05-17] MEDS ORDERED: Lidocaine 2% 20mg/ml/EPI 0.01mg/ml 20ml ONE (10:41)
[2017-05-17] MEDS ORDERED: LR 1000ml 1,000 ML IVLG SCH (11:26)
--- NOTE | 2017-05-17 11:26 | Anethesia Preoperative Eval ---
Anesthesia Pre-op PMH/ROS General Date of Evaluation: May 17, 2017 Time of Evaluation: 10:35 Anesthesiologist: Allison ASA Score: ASA 3 Mallampati Score Class I : Soft palate, uvula, fauces, pillars visible Class II: Soft palate, uvula, fauces visible Class III: Soft palate, base of uvula visible Class IV: Only hard plate visible Mallampati Classification: Class II Surgeon: Nick Diagnosis: Bilateral ptosis Surgical Procedure: Bilateral blepharoplasty Anesthesia History: none Social History: smoking - h/o Family History: no anesthesia problems Allergies: Coded Allergies: NAPROXEN (Verified Allergy, Severe, 11/09/16) SKIN RASH,ITCHING ESCITALOPRAM (Verified Allergy, Intermediate, hives, 11/09/16) Past Medical History Cardiovascular: Reports: HTN - stable, CAD - No recent CP, Denies: [place], valve dz, arrhythmia, other Pulmonary: Reports: MALINI, Denies: asthma, COPD, other Gastrointestinal/Genitourinary: Reports: GERD, Denies: CRI, ESRD, other Neurologic/Psychiatric: Reports: TIA - h/o some L sided weakness, Denies: dementia, CVA, depression/anxiety, other Endocrine: Denies: DM, hypothyroidism, steroids, other HEENT: Reports: cataract (L), cataract (R) - s/p Sx Hematology/Immune: Denies: anemia, DVT, bleeding disorder, other Musculoskeletal/Integumentary: Reports: OA, Denies: RA, DJD, DDD, edema, other Other: obesity PMH Narrative: as above PSxH Narrative: Hysterectomy, cholecystectomy bilateral cataract Anesthesia Pre-op Phys. Exam Physician Exam Last Vital Signs Date Time Temp Pulse Resp B/P (MAP) Pulse Ox O2 Delivery O2 Flow Rate FiO2 05/17/17 08:45 97.8 58 18 108/68 100 Room Air 97.8 Constitutional: NAD Neurologic: CN 2-12 intact Cardiovascular: RRR, no M/R/G Respiratory: CTA Gastrointestinal: other - obesity Airway Exam Mallampati Score: Class II MO: full Neck: short ROM: limited Teeth: missing Dentures: no upper, no lower Anesthesia Pre-op A/P Labs Hematology Test 05/17/17 08:30 White Blood Count 6.3 K/UL (4.8-10.8) Red Blood Count 4.05 M/UL (4.20-5.40) L Hemoglobin 12.8 G/DL (12.0-16.0) Hematocrit 38.4 % (37.0-47.0) Mean Corpuscular Volume 95 FL (80-99) Mean Corpuscular Hemoglobin 31.6 PG (27.0-31.0) H Mean Corpuscular Hemoglobin Concent 33.3 G/DL (32.0-36.0) Red Cell Distribution Width 11.7 % (11.6-14.8) Platelet Count 295 K/UL (150-450) Mean Platelet Volume 7.2 FL (6.5-10.1) Neutrophils (%) (Auto) 37.5 % (45.0-75.0) L Lymphocytes (%) (Auto) 47.1 % (20.0-45.0) H Monocytes (%) (Auto) 8.1 % (1.0-10.0) Eosinophils (%) (Auto) 6.2 % (0.0-3.0) H Basophils (%) (Auto) 1.1 % (0.0-2.0) Chemistry Test 05/17/17 08:30 Sodium Level 141 MMOL/L (136-145) Potassium Level 3.3 MMOL/L (3.5-5.1) L Chloride Level 104 MMOL/L (98-107) Carbon Dioxide Level 31 MMOL/L (21-32) Anion Gap 6 mmol/L (5-15) Blood Urea Nitrogen 17 mg/dL (7-18) Creatinine 1.1 MG/DL (0.55-1.30) Estimat Glomerular Filtration Rate > 60 mL/min (>60) Glucose Level 91 MG/DL (74-106) Calcium Level 8.8 MG/DL (8.5-10.1) Studies Pre-op Studies: EKG - SR Risk Assessment & Plan Assessment: ASA 3 Plan: MAC Status Change Before Surgery: No Pre-Antibiotics Drug: None LUCILA CHAVEZ M.D. May 17, 2017 11:26
[2017-05-17] MEDS ORDERED: DiphenhydrAMINE 50mg/ml Inj IVP PRN (11:30)
[2017-05-17] MEDS ORDERED: fentaNYL 100 mcg/2 mL IV PRN (11:30)
--- NOTE | 2017-05-17 12:31 | Discharge Summary ---
Discharge Summary Discharge Summary Discharge Summary DATE OF ADMISSION: 05/17/2017 DATE OF DISCHARGE: 05/17/2017 REASON FOR HOSPITALIZATION: 1-ptosi upper lids 2- Entropion, upper lids 3- Blepharochalasis, dermatochalasis, upper lids SURGERY PERFORMED: 1- Ptosis correctio upper lids 2- entropion correction, upper lids 3- Blepharoplasty,upper lids CONDITION IN THE HOSPITAL:The patient tolerated the surgery without complications. DISCHARGE CONDITION: The patient was stable at discharge. DISCHARGE MEDICATIONS: 1. Vigamox eye drops one drop q.i.d, OU 2. Prednisolone one drop q.i.d, OU 3- Keflex cap 500 mg q8h 4- Maxitrol eye ointment apply to lids POSTOPERATIVE FOLLOW UP: The patient will be followed in my office tomorrow morning at 7 o'clock. TAMMI ARAYA May 17, 2017 12:31
--- NOTE | 2017-05-17 12:33 | Immediate Post-Op Evaluation ---
Immediate Post-Op Evalulation Immediate Post-Op Evalulation Procedure: Bilateral blepharoplasty Date of Evaluation: May 17, 2017 Time of Evaluation: 12:32 IV Fluids: 400 Blood Products: none Estimated Blood Loss: min Urinary Output: none Blood Pressure Systolic: 120 Blood Pressure Diastolic: 63 Pulse Rate: 58 Respiratory Rate: 20 O2 Sat by Pulse Oximetry: 99 Temperature (Fahrenheit): 98.1 Pain Score (1-10): 1 Nausea: No Vomiting: No Complications none Patient Status: awake, patent, none Hydration Status: adequate LUCILA CHAVEZ M.D. May 17, 2017 12:33
--- NOTE | 2017-05-17 12:34 | Brief Operative Note ---
Immediate Post Operative Note Operative Note Chief Complaint: Droopy eyelds, difficulty driving and reading Pre-op Diagnosis: 1- Ptosis ,upper lids 2- Entropion, upper lids 3- Blepharochalasis,upper lids. Procedure: 1- Ptosis correction, upper lids 2- Entropion correction, upper lids 3- Blepharoplasty, upper lids Post-op Diagnosis: same as pre-op Surgeon: Tammi Romero MD. Flame Hardener: None Additional Surgeons: None Anesthesiologist: Dr. Cooper Anesthesia: local, MAC Specimen: none Complications: none Condition: stable Fluids: 600ml Estimated Blood Loss: minimal Drains: none Implant(s) used?: TAMMI Rodriguez May 17, 2017 12:34
--- NOTE | 2017-05-17 13:11 | 48 Hour Post Anesthesia Eval ---
Post Anesthesia Evaluation Procedure: Bilateral blepharoplasty Date of Evaluation: May 17, 2017 Time of Evaluation: 13:10 Blood Pressure Systolic: 123 0: 56 Pulse Rate: 72 Respiratory Rate: 20 Temperature (Fahrenheit): 97.4 O2 Sat by Pulse Oximetry: 99 Airway: patent Nausea: No Vomiting: No Pain Intensity: 2 Hydration Status: adequate Cardiopulmonary Status: stable Mental Status/LOC: patient returned to baseline Follow-up Care/Observations: n/a Post-Anesthesia Complications: none Follow-up care needed: ready to discharge LUCILA CHAVEZ M.D. May 17, 2017 13:11
--- NOTE | 2017-05-18 05:45 | Operative Note - Dictated ---
DATE OF OPERATION: 05/17/2017 FACILITY: . SURGEON: Estevan Romero M.D. CIRCULATION DIRECTOR: None. ANESTHESIOLOGIST: Fernando Cooper M.D. ANESTHESIA: Monitored anesthesia care (MAC) plus local anesthesia with 2% lidocaine with 1:100,000 epinephrine. PREOPERATIVE DIAGNOSES: 1. Ptosis, upper lids. 2. Entropion, upper lids. 3. Dermatochalasis and blepharochalasis, upper lids. POSTOPERATIVE DIAGNOSES: 1. Ptosis, upper lids. 2. Entropion, upper lids. 3. Dermatochalasis and blepharochalasis, upper lids. SURGERY PERFORMED: 1. Ptosis correction, upper lids. 2. Entropion correction, upper lids. 3. Blepharoplasty, upper lids. INDICATIONS FOR SURGERY: The patient is a (61-year-old) lady with a history of diabetes mellitus, hypertension, hypercholesterolemia, and hypothyroidism. She is taking medications including levothyroxine, Lipitor, Lexapro, metformin, Diovan, and aspirin. She is not a smoker and she is not a drinker. She is allergic to Lexapro. She has had cataract surgery in both eyes two months ago and she is happy with the result. Now, she is complaining of droopy eyelids, laziness, difficulty driving and difficulty reading because of droopy eyelids. The patient had an entropion and blepharoptosis bilaterally. This is a progressive dermatochalasis that will create astigmatism in the cornea and is covering the visual axis of the patient, which is interruption for the patient's driving. All these disfigurements were demonstrated clearly in the patient's photos and the patient's visual martin. There is no alternative for these anatomic changes. The only way that we can correct this disfigurement and anatomy changes is correction with surgery. INFORMED CONSENT: The nature of the surgery, risks, benefits, alternatives, and potential complications were all explained in detail to the patient. The patient voiced understanding and accepted all the complications. The potential complications including dryness, unequal both eyes, ecchymosis, face swelling, and loss of lashes and eyebrows and there is no alternative for this disfigurement as earlier stated. The patient accepted all the complications and she signed the consent form, which is in the chart. DESCRIPTION OF SURGERY AND FINDINGS: Following that, the patient was taken to the operation room in a stable condition. Lidocaine gel Akten 3.5% were applied to the conjunctiva of both eyes. Before the patient was taken to the operation room, the upper eyelids were marked 10 mm above the root of the lashes and 15 mm below the lower part of the eyebrows. 25 mm of the skin was left to facilitate the eye closure. In the operation room, the eye was prepped and draped in sterile fashion for intraocular surgery. Following that, 2% lidocaine with epinephrine 1:100,000 was injected into the upper lids and eyebrows. After adequate anesthesia and sedation had been achieved with a Bovie knife, the skin was dissected and from the orbicularis oculi muscles and removed. Following that, hemostasis was performed. Following that, an incision was performed in the orbicularis oculi muscle and two huge fat compartments were released. The fat compartments were sculptured conservatively. Hemostasis was performed. Following that, the levator palpebrae superioris muscle was released and the muscle was tacked 6 mm in each side and stitched with 6-0 Vicryl to treat the patient's ptosis. The sutures were trimmed and hemostasis was performed. Following that, groove nicole were made bilaterally on the tarsus plate about 3 mm above the root of the eyelashes and tarsal material inside the groove was removed with the Vannas scissors and then the lids of the groove were stitched with 6-0 Vicryl on both sides and lashes were turned from downside to upward and with entropion. At the end of the procedure, hemostasis was checked . The wound was closed with 6-0 plain gut in the fashion of running aesthetic locked suturing. The patient tolerated the surgery without complications. At the end of the surgery, TobraDex eye ointment was applied to the wound. The patient tolerated the surgery without complications. At the end of the surgery, the patient was transferred to the recovery room. In the recovery room, the wound was checked for bleeding. There was no bleeding. Postoperative orders and directions were given to the patient. Cold compresses were applied to the wounds. The patient will be discharged home upon stabilization. The patient will be followed in my office tomorrow morning. Estevan Romero M.D. DR: Raven JOB#: [id number] CC:
--- NOTE | 2017-05-18 16:05 | Cardiology Report ---
APPROVED REPORT EKG Measurement Heart [id number] ID [id number] Sinus bradycardia Otherwise normal ECG
== END 2017-05-17 13:35 | disposition home or self-care (01) ==
LOC: SUR 07:42
DX: H02.403 Unspecified ptosis of bilateral eyelids (principal); H02.004 Unspecified entropion of left upper eyelid; H02.001 Unspecified entropion of right upper eyelid; H02.834 Dermatochalasis of left upper eyelid; H02.831 Dermatochalasis of right upper eyelid; H02.34 Blepharochalasis left upper eyelid; H02.31 Blepharochalasis right upper eyelid; H53.8 Other visual disturbances; E11.9 Type 2 diabetes mellitus without complications; I10 Essential (primary) hypertension; E78.00 Pure hypercholesterolemia, unspecified; E03.9 Hypothyroidism, unspecified; Z79.82 Long term (current) use of aspirin; I11.9 Hypertensive heart disease without heart failure; G47.33 Obstructive sleep apnea (adult) (pediatric); K21.9 Gastro-esophageal reflux disease without esophagitis; Z88.8 Allergy status to other drugs, medicaments and biological substances; G81.94 Hemiplegia, unspecified affecting left nondominant side; M19.90 Unspecified osteoarthritis, unspecified site; Z90.710 Acquired absence of both cervix and uterus; Z90.49 Acquired absence of other specified parts of digestive tract; E66.9 Obesity, unspecified; Z68.41 Body mass index [BMI] 40.0-44.9, adult; R00.1 Bradycardia, unspecified
CPT/HCPCS: 15822; 36415; 67924; 80048; 85025; 93005; J2250; J2704; J3010; 94003; 94150

== ENCOUNTER 2017-07-02 06:27 | Emergency (ER) | payer MEDICARE, OTHER ==
[~2017-07-02] VITALS: Ht 152.4 cm; Wt 93.0 kg
[~2017-07-02 06:27] MED LIST changes: -Akten 3.5% 1ml Btl BOTH EYES ONE; -Maxitrol Opth Oint 3.5gm BOTH EYES ONE
[2017-07-02] MEDS ORDERED: NEOMYCIN-POLY-7.5 M1 OP (06:46)
[2017-07-02] MEDS ORDERED: AKTOB1 DROP BOTH EYES (06:46)
[2017-07-02 06:59] VITALS: BP 108/69
[2017-07-02 07:34] LABS: BASOPHILS % (AUTO) 0.6 % (0.0-2.0); EOSINOPHILS % (AUTO) 11.3 % (0.0-3.0); HEMATOCRIT 38.5 % (37.0-47.0); HEMOGLOBIN 13.4 G/DL (12.0-16.0); LYMPHOCYTES % (AUTO) 38.7 % (20.0-45.0); MEAN CORPUSCULAR VOLUME 93 FL (80-99); MONOCYTES % (AUTO) 8.8 % (1.0-10.0); NEUTROPHILS % (AUTO) 40.7 % (45.0-75.0); PLATELET COUNT 332 K/UL (150-450); RED BLOOD COUNT 4.13 M/UL (4.20-5.40); RED CELL DISTRIBUTION WIDTH 11.2 % (11.6-14.8); WHITE BLOOD COUNT 6.2 K/UL (4.8-10.8)
[2017-07-02 07:41] LABS: ANION GAP 10 mmol/L (5-15); BLOOD UREA NITROGEN 19 mg/dL (7-18); CALCIUM 8.8 MG/DL (8.5-10.1); CARBON DIOXIDE 27 MMOL/L (21-32); CHLORIDE 103 MMOL/L (98-107); POTASSIUM 3.6 MMOL/L (3.5-5.1); SODIUM 140 MMOL/L (136-145)
[2017-07-02 07:46] LABS: ALANINE AMINOTRANSFERASE 37 U/L (12-78); ALBUMIN 3.5 G/DL (3.4-5.0); ALKALINE PHOSPHATASE 93 U/L (46-116); ASPARTATE AMINO TRANSFERASE 24 U/L (15-37); BILIRUBIN,TOTAL 0.4 MG/DL (0.2-1.0)
--- NOTE | 2017-07-02 07:57 | Emergency Room Report ---
History of Present Illness General Chief Complaint: Skin Rash/Abscess Source: Patient Present Illness HPI This patient states that she noted an itchy rash that has been going on for about 4 months. She associates this rash with starting water aerobics. This is in an indoor pool. She states she had the rash on her legs but it has since resolved. She now has 2 areas on her mid back. She also has facial redness and bumps. She has been using lotions and treatments without resolution. She states it does wax and wane in severity. She denies tingling or numbness. She denies weakness. She denies recent illness. She denies new medications. She denies any new lotions. She denies chest pain or shortness of breath. She has no other symptoms. Allergies: Coded Allergies: NAPROXEN (Verified Allergy, Severe, 11/09/16) SKIN RASH,ITCHING ESCITALOPRAM (Verified Allergy, Intermediate, hives, 11/09/16) Patient History Past Medical History: see triage record, HTN, psych hx Past Surgical History: franca, hysterectomy Social History: Reports: alcohol use; Denies: smoking, drug use Now: No Reviewed Nursing Documentation: PMH: Agreed; PSxH: Agreed Nursing Documentation-PMH Hx Hypertension: Yes Hx Cancer: No Hx Gastrointestinal Problems: No Hx Dialysis: No History Of Psychiatric Problem: Yes - bipolar, OCD, anxiety Hx Neurological Problems: Yes Hx Transient Ischemic Attacks: Yes - 2011, 2012 Hx Memory Loss: Yes - RESOLVED Hx Speech Problem: Yes - RESOLVED Hx Dizziness: Yes - RESOLVED Hx Weakness: Yes - RESOLVED Review of Systems All Other Systems: negative except mentioned in HPI Physical Exam Vital Signs Date Time Temp Pulse Resp B/P (MAP) Pulse Ox O2 Delivery O2 Flow Rate FiO2 07/02/17 06:40 97.8 72 18 134/90 97 Room Air 97.9 Sp02 EP Interpretation: reviewed, normal General Appearance: no apparent distress, alert, GCS 15, non-toxic Head: normocephalic, atraumatic Eyes: bilateral eye normal inspection, bilateral eye PERRL ENT: hearing grossly normal, normal pharynx, no angioedema, normal voice Neck: full range of motion, supple/symm/no masses Respiratory: chest non-tender, lungs clear, normal breath sounds, speaking full sentences Cardiovascular #1: regular rate, rhythm, no edema Gastrointestinal: normal bowel sounds, non tender, soft, non-distended, no guarding, no rebound Rectal: deferred Musculoskeletal: back normal, gait/station normal, normal range of motion, non- tender Neurologic: alert, oriented x3, responsive, motor strength/tone normal, sensory intact, speech normal Psychiatric: judgement/insight normal, memory normal, mood/affect normal, no suicidal/homicidal ideation Skin: warm/dry, well hydrated, rash - Scattered erythematous rash on left upper and right upper back. No vesicles. All lesions in the same stage. Lymphatic: no adenopathy Medical Decision Making Diagnostic Impression: Primary Impression: Rash and other nonspecific skin eruption ER Course Differential diagnosis: Rosacea, acute lupus, other undifferentiated dermatitis , allergic dermatitis. I did do basic labs to include CBC and CMP and these are unremarkable. The patient has skin findings that could be rosacea versus a malar rash related to lupus. However, the patient has no other complaints which makes lupus less likely. This could be an autoimmune dermatitis related to medications or other trigger. I will go ahead and she with topical metronidazole to attempt to treat rosacea. However, I did educate the patient that she would need to see a paraffiner and possibly undergo further testing by her primary care physician if her rash continues to persist. I would be concerned she has lupus or other condition that is not an emergency and that I would not be able to diagnose in the emergency department. The patient is already using topical lotions and Benadryl. These are not hives and they are not shingle lesions. Regardless, this is a chronic rash and is not emergency medical condition. The patient is given close return precautions and follow-up instructions. Laboratory Tests Test 07/02/17 07:21 White Blood Count 6.2 K/UL (4.8-10.8) Red Blood Count 4.13 M/UL (4.20-5.40) L Hemoglobin 13.4 G/DL (12.0-16.0) Hematocrit 38.5 % (37.0-47.0) Mean Corpuscular Volume 93 FL (80-99) Mean Corpuscular Hemoglobin 32.5 PG (27.0-31.0) H Mean Corpuscular Hemoglobin Concent 34.8 G/DL (32.0-36.0) Red Cell Distribution Width 11.2 % (11.6-14.8) L Platelet Count 332 K/UL (150-450) Mean Platelet Volume 7.1 FL (6.5-10.1) Neutrophils (%) (Auto) 40.7 % (45.0-75.0) L Lymphocytes (%) (Auto) 38.7 % (20.0-45.0) Monocytes (%) (Auto) 8.8 % (1.0-10.0) Eosinophils (%) (Auto) 11.3 % (0.0-3.0) H Basophils (%) (Auto) 0.6 % (0.0-2.0) Sodium Level 140 MMOL/L (136-145) Potassium Level 3.6 MMOL/L (3.5-5.1) Chloride Level 103 MMOL/L (98-107) Carbon Dioxide Level 27 MMOL/L (21-32) Anion Gap 10 mmol/L (5-15) Blood Urea Nitrogen 19 mg/dL (7-18) H Creatinine 1.0 MG/DL (0.55-1.30) Estimate Glomerular Filtration Rate > 60 mL/min (>60) Glucose Level 113 MG/DL (74-106) H Calcium Level 8.8 MG/DL (8.5-10.1) Total Bilirubin 0.4 MG/DL (0.2-1.0) Aspartate Amino Transferase (AST) 24 U/L (15-37) Alanine Aminotransferase (ALT) 37 U/L (12-78) Alkaline Phosphatase 93 U/L (46-116) Total Protein 7.1 G/DL (6.4-8.2) Albumin 3.5 G/DL (3.4-5.0) Globulin 3.6 g/dL Albumin/Globulin Ratio 1.0 (1.0-2.7) Last Vital Signs Date Time Temp Pulse Resp B/P (MAP) Pulse Ox O2 Delivery O2 Flow Rate FiO2 07/02/17 06:59 98.1 66 18 108/69 100 Room Air 98.1 Status: improved Disposition: HOME, SELF-CARE Condition: Improved Referrals: Sukh Castañeda MD (PCP) ALIZA MUÑIZ D.O. Jul 02, 2017 07:57
[2017-07-02] MEDS ORDERED: METRONIDAZOLE45 G1 TOPIC (08:01)
[2017-07-02 08:14] VITALS: BP 111/66
== END 2017-07-02 08:14 | disposition home or self-care (01) ==
LOC: EMR 07:06
DX: R21 Rash and other nonspecific skin eruption (principal); I10 Essential (primary) hypertension; Z86.73 Personal history of transient ischemic attack (TIA), and cerebral infarction without residual deficits
CPT/HCPCS: 36415; 80053; 85025; 99282

== ENCOUNTER 2017-08-15 16:24 | Emergency (ER) | payer MEDICARE, OTHER ==
[~2017-08-15] VITALS: Ht 160 cm; Wt 81.6 kg
[~2017-08-15 16:24] MED LIST changes: +AKTOB1 DROP BOTH EYES; +METRONIDAZOLE45 G1 TOPIC; +NEOMYCIN-POLY-7.5 M1 OP
--- NOTE | 2017-08-15 16:42 | Emergency Room Report ---
History of Present Illness General Chief Complaint: Chest Pain Source: Patient, Medical Record Present Illness HPI Patient is a 62-year-old female who presented after increased low back pain. Patient states that she had recent fall approximately 2 days prior to arrival. The patient reports having increased pain and spasming since this episode. The patient reports having increased pain to her chest. History is markedly limited by patient's poor cooperation.The patient reports having a recent alcohol intake. The patient stated she had several beers as well as a shot of tequila. Patient reports having increased nausea after this Allergies: Coded Allergies: NAPROXEN (Verified Allergy, Severe, 11/09/16) SKIN RASH,ITCHING ESCITALOPRAM (Verified Allergy, Intermediate, hives, 11/09/16) Patient History Reviewed Nursing Documentation: PMH: Agreed; PSxH: Agreed Nursing Documentation-PMH Past Medical History: No History, Except For Hx Hypertension: Yes Hx Cancer: No Hx Gastrointestinal Problems: No Hx Dialysis: No Hx Neurological Problems: Yes Hx Transient Ischemic Attacks: Yes - 2011, 2012 Hx Memory Loss: Yes - RESOLVED Hx Speech Problem: Yes - RESOLVED Hx Dizziness: Yes - RESOLVED Hx Weakness: Yes - RESOLVED Review of Systems All Other Systems: limited - by poor historian Physical Exam Vital Signs Date Time Temp Pulse Resp B/P (MAP) Pulse Ox O2 Delivery O2 Flow Rate FiO2 08/15/17 16:36 98.4 103 18 137/90 95 Room Air 98.4 Sp02 EP Interpretation: reviewed, normal General Appearance: no apparent distress, alert, GCS 15, obese Head: atraumatic ENT: normal ENT inspection, hearing grossly normal, normal voice Neck: normal inspection, full range of motion, supple, no bony tend Respiratory: normal inspection, lungs clear, normal breath sounds, no respiratory distress, no retraction, no wheezing Cardiovascular #1: regular rate, rhythm, no edema Gastrointestinal: normal inspection, normal bowel sounds, non tender, soft, no guarding, no hernia Genitourinary: no CVA tenderness Musculoskeletal: normal inspection, back normal, normal range of motion Neurologic: normal inspection, alert, oriented x3, responsive, fuel dock attendant III-XII nml as tested, motor strength/tone normal, speech normal Psychiatric: normal inspection, judgement/insight normal, mood/affect normal Skin: normal inspection, normal color, no rash Medical Decision Making Diagnostic Impression: Primary Impression: Back pain Additional Impression: Gastritis ER Course Patient presented for abdominal pain. Differential diagnoses included ischemic bowel, appendicitis, perforated viscus, abdominal aortic aneurysm, inferior myocardial infarction, viral gastroenteritis. Because of complexity of patient' s case laboratory testing and imaging studies were ordered.Laboratory studies unremarkable. The patient was noted to have mildly elevated BUN/creatinine. Patient started on IV fluids. Patient symptoms appear to be alcohol related. She was given IV Zofran for nausea.The patient is advised to follow up with primary care doctor in 1-2 days. Patient is advised to return if any worsening condition or if any changes in status that are concerning. This report is dictated with [employer] tile applicator software which may occasionally lead to discrepancies related to use of this software. Labs Test 08/15/17 16:43 08/15/17 16:56 Urine Color Pale yellow Urine Appearance Clear Urine pH 6 (4.5-8.0) Urine Specific [place] 1.005 (1.005-1.035) Urine Protein Negative (NEGATIVE) Urine Glucose (UA) Negative (NEGATIVE) Urine Ketones Negative (NEGATIVE) Urine Occult Blood Negative (NEGATIVE) Urine Nitrite Negative (NEGATIVE) Urine Bilirubin Negative (NEGATIVE) Urine Urobilinogen Normal MG/DL (0.0-1.0) Urine Leukocyte Esterase Negative (NEGATIVE) Urine Opiates Screen Negative (NEGATIVE) Urine Barbiturates Screen Negative (NEGATIVE) Phencyclidine (PCP) Screen Negative (NEGATIVE) Urine Amphetamines Screen Negative (NEGATIVE) Urine Benzodiazepines Screen Negative (NEGATIVE) Urine Cocaine Screen Negative (NEGATIVE) Urine Marijuana (THC) Screen Negative (NEGATIVE) White Blood Count 8.5 K/UL (4.8-10.8) Red Blood Count 4.57 M/UL (4.20-5.40) Hemoglobin 14.0 G/DL (12.0-16.0) Hematocrit 42.5 % (37.0-47.0) Mean Corpuscular Volume 93 FL (80-99) Mean Corpuscular Hemoglobin 30.6 PG (27.0-31.0) Mean Corpuscular Hemoglobin Concent 32.9 G/DL (32.0-36.0) Red Cell Distribution Width 11.6 % (11.6-14.8) Platelet Count 337 K/UL (150-450) Mean Platelet Volume 7.3 FL (6.5-10.1) Neutrophils (%) (Auto) 45.7 % (45.0-75.0) Lymphocytes (%) (Auto) 41.6 % (20.0-45.0) Monocytes (%) (Auto) 8.0 % (1.0-10.0) Eosinophils (%) (Auto) 3.7 % (0.0-3.0) Basophils (%) (Auto) 1.0 % (0.0-2.0) Sodium Level 141 MMOL/L (136-145) Potassium Level 3.6 MMOL/L (3.5-5.1) Chloride Level 105 MMOL/L (98-107) Carbon Dioxide Level 25 MMOL/L (21-32) Anion Gap 11 mmol/L (5-15) Blood Urea Nitrogen 24 mg/dL (7-18) Creatinine 1.0 MG/DL (0.55-1.30) Estimat Glomerular Filtration Rate > 60 mL/min (>60) Glucose Level 118 MG/DL (74-106) Calcium Level 9.1 MG/DL (8.5-10.1) Total Bilirubin 0.2 MG/DL (0.2-1.0) Aspartate Amino Transf (AST/SGOT) 26 U/L (15-37) Alanine Aminotransferase (ALT/SGPT) 41 U/L (12-78) Alkaline Phosphatase 93 U/L (46-116) Total Creatine Kinase 99 U/L (26-308) Creatine Kinase MB 1.1 NG/ML (0.0-3.6) Creatine Kinase MB Relative Index 1.1 Troponin I 0.000 ng/mL (0.000-0.056) Total Protein 8.5 G/DL (6.4-8.2) Albumin 4.1 G/DL (3.4-5.0) Globulin 4.4 g/dL Albumin/Globulin Ratio 0.9 (1.0-2.7) Last Vital Signs Date Time Temp Pulse Resp B/P (MAP) Pulse Ox O2 Delivery O2 Flow Rate FiO2 08/15/17 16:36 98.4 103 18 137/90 95 Room Air 98.4 Status: improved Disposition: HOME, SELF-CARE Condition: Stable Scripts Omeprazole Magnesium (PRILOSEC OTC) 20 Mg Tablet. 20 MG ORAL DAILY, #30 TAB Prov: Matti Sylvester MD 08/15/17 Matti Sylvester MD August 15, 2017 16:42
[2017-08-15] MEDS ORDERED: LORazepam Inj 2mg/ml 1ml IV ONE (16:45)
[2017-08-15 16:59] LABS: APPEARANCE,URINE CLEAR; BILIRUBIN, URINE NEGATIVE (NEGATIVE); COLOR,URINE PALE YELLOW; GLUCOSE, URINE (UA) NEGATIVE (NEGATIVE); KETONES,URINE NEGATIVE (NEGATIVE); LEUKOCYTE ESTERASE ,URINE NEGATIVE (NEGATIVE); NITRITE,URINE NEGATIVE (NEGATIVE); PH,URINE 6 (4.5-8.0); PROTEIN,URINE NEGATIVE (NEGATIVE); UROBILINOGEN,URINE NORMAL MG/DL (0.0-1.0)
[2017-08-15 17:13] VITALS: BP 124/90
[2017-08-15 17:14] LABS: EOSINOPHILS % (AUTO) 3.7 % (0.0-3.0); HEMATOCRIT 42.5 % (37.0-47.0); LYMPHOCYTES % (AUTO) 41.6 % (20.0-45.0); MEAN CORPUSCULAR VOLUME 93 FL (80-99); NEUTROPHILS % (AUTO) 45.7 % (45.0-75.0); PLATELET COUNT 337 K/UL (150-450); RED BLOOD COUNT 4.57 M/UL (4.20-5.40); RED CELL DISTRIBUTION WIDTH 11.6 % (11.6-14.8); WHITE BLOOD COUNT 8.5 K/UL (4.8-10.8)
[2017-08-15 17:22] LABS: ANION GAP 11 mmol/L (5-15); BLOOD UREA NITROGEN 24 mg/dL (7-18); CALCIUM 9.1 MG/DL (8.5-10.1); CARBON DIOXIDE 25 MMOL/L (21-32); CHLORIDE 105 MMOL/L (98-107); POTASSIUM 3.6 MMOL/L (3.5-5.1); SODIUM 141 MMOL/L (136-145)
[2017-08-15 17:36] LABS: ALANINE AMINOTRANSFERASE 41 U/L (12-78); ALBUMIN 4.1 G/DL (3.4-5.0); ALBUMIN/GLOBULIN RATIO 0.9 (1.0-2.7); ALKALINE PHOSPHATASE 93 U/L (46-116); ASPARTATE AMINO TRANSFERASE 26 U/L (15-37); BILIRUBIN,TOTAL 0.2 MG/DL (0.2-1.0); CKMB 1.1 NG/ML (0.0-3.6); CREATINE KINASE 99 U/L (26-308)
[2017-08-15 18:41] VITALS: BP 102/83
[2017-08-15] MEDS ORDERED: PRILOSEC OTC20 MG ORAL (20:18)
[2017-08-15 20:30] VITALS: BP 102/83
--- NOTE | 2017-08-16 10:49 | Diagnostic Imaging Report ---
Indication: Dyspnea Comparison: 05/21/2016 A single view chest radiograph was obtained. Findings: Cardiomediastinal appearance is within normal limits for age. Pulmonary vascularity is appropriate. The diaphragmatic contour is smooth and costophrenic angles are sharp. No pleural effusions are identified. The bones are unremarkable. Impression: No acute findings
--- NOTE | 2017-08-16 14:04 | Cardiology Report ---
APPROVED REPORT EKG Measurement Heart [id number] Normal sinus rhythm Left axis deviation Cannot rule out Anterior infarct, age undetermined Abnormal ECG
== END 2017-08-15 20:36 | disposition home or self-care (01) ==
LOC: EMR 17:00
DX: M54.5 Low back pain (principal); K29.70 Gastritis, unspecified, without bleeding; I10 Essential (primary) hypertension; Z88.6 Allergy status to analgesic agent; Z88.8 Allergy status to other drugs, medicaments and biological substances; Z86.73 Personal history of transient ischemic attack (TIA), and cerebral infarction without residual deficits
CPT/HCPCS: 36415; 71045; 80053; 80307; 81003; 82550; 82553; 84484; 85025; 93005; 96374; 99284

== ENCOUNTER → 2017-11-01 | Emergency (ER) | payer MEDICARE, OTHER ==
[~2017-11-01] VITALS: Ht 172.7 cm; Wt 89.8 kg
[~2017-11-01] MED LIST changes: +Ketorolac 30mg Inj IM ONE; +LIDOCAINE700 M1 TP; +Methocarbamol 500mg tab ORAL ONE; +PRILOSEC OTC20 MG ORAL; +ROBAXIN500 MG PO
[2017-11-01 12:00] VITALS: BP 149/85
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
[2017-11-01 12:36] VITALS: BP 149/85
== END | disposition home or self-care (01) ==
LOC: EMR 12:31
DX: M62.838 Other muscle spasm (principal); I10 Essential (primary) hypertension; Z86.73 Personal history of transient ischemic attack (TIA), and cerebral infarction without residual deficits; Z88.6 Allergy status to analgesic agent; Z88.8 Allergy status to other drugs, medicaments and biological substances
CPT/HCPCS: 99283; J1885

== ENCOUNTER 2018-01-09 14:38 | Emergency (ER) | payer MEDICARE, OTHER ==
[~2018-01-09] VITALS: Ht 152.4 cm; Wt 88.9 kg
[~2018-01-09 14:38] MED LIST changes: -Ketorolac 30mg Inj IM ONE; -Methocarbamol 500mg tab ORAL ONE
[2018-01-09] MEDS ORDERED: Norco 5mg/325mg tab ORAL ONE (15:30)
--- NOTE | 2018-01-09 16:17 | Emergency Room Report ---
History of Present Illness General Chief Complaint: Earache Source: Patient Present Illness HPI 10/ 10 in severity right sided temporal tenderness,, and throbbing GONZALEZ with radiation to ear. Denies CP, Palpitations, LOC, AMS, dizziness, Changes in Vision, Sensation, paresthesias, or a sudden severe headache. Allergies: Coded Allergies: NAPROXEN (Verified Allergy, Severe, 11/09/16) SKIN RASH,ITCHING ESCITALOPRAM (Verified Allergy, Intermediate, hives, 11/09/16) Patient History Past Medical History: see triage record Past Surgical History: none Now: No Reviewed Nursing Documentation: PMH: Agreed; PSxH: Agreed Nursing Documentation-PMH Hx Hypertension: Yes Hx Cancer: No Hx Gastrointestinal Problems: No Hx Dialysis: No Hx Neurological Problems: Yes Hx Transient Ischemic Attacks: Yes - 2011, 2012 Hx Memory Loss: Yes - RESOLVED Hx Speech Problem: Yes - RESOLVED Hx Dizziness: Yes - RESOLVED Hx Weakness: Yes - RESOLVED Review of Systems All Other Systems: negative except mentioned in HPI Physical Exam Vital Signs Date Time Temp Pulse Resp B/P (MAP) Pulse Ox O2 Delivery O2 Flow Rate FiO2 01/09/18 14:47 98.5 67 8 149/83 97 Room Air 98.4 Medical Decision Making PA Attestation Dr. muro is my supervising Physician whom patient management has been discussed with. Diagnostic Impression: Primary Impression: Temporal headache Additional Impression: Temporal arteritis syndrome ER Course Pt. presents to the ED c/o migraine [ ]., describes typical migraine, currently out of migraine medication Imitrex Ddx considered but are not limited to migraine, SAH, Pseudomotor Cerebri, Mass lesion, Cluster GONZALEZ, Tension GONZALEZ, Post lumbar puncture GONZALEZ., OE/OM, Temporal Arteritis. Vital signs: are WNL, pt. is afebrile H&PE are most consistent with migraine headache ORDERS: ED INTERVENTIONS: -80 mg Prednisone PO -- Elko PO Pt. given strict ED return precautions, she has already made appt. with Dr. Castañeda for follow up on 01/11 DISCHARGE: At this time pt. is stable for d/c to home. Will provide printed patient care instructions, and any necessary prescriptions. Care plan and follow up instructions have been discussed with the patient prior to discharge. Last Vital Signs Date Time Temp Pulse Resp B/P (MAP) Pulse Ox O2 Delivery O2 Flow Rate FiO2 01/09/18 15:46 98.5 01/09/18 14:47 67 8 149/83 97 Room Air Disposition: HOME, SELF-CARE Condition: Stable Scripts Acetaminophen (Tylenol) 325 Mg Capsule 325 MG PO Q6HR, #20 CAP Prov: Jaky See 01/09/18 Hydrocodone Bit/Acetaminophen 5-325* (NORCO 5-325*) 1 Each Tablet 1 TAB ORAL Q6H PRN for Breakthrough Pain, #3 TAB 0 Refills Prov: Jaky See 01/09/18 Prednisone* (PREDNISONE*) 50 Mg Tablet 1.5 TAB ORAL DAILY for 5 Days, #8 TAB 0 Refills Prov: Jaky See 01/09/18 Referrals: Sukh Castañeda MD (PCP) Patient Instructions: Prednisone tablets, Temporal Arteritis, Temporal Artery Biopsy Additional Instructions: Take medications as directed. Follow up with Dr. Castañeda at your appointment on 01/11 , even if your symptoms have resolved. --Please review list of primary care clinics, if you do not already have a primary care provider Return sooner to ED if new symptoms occur, or current symptoms become worse. Do not drink alcohol, drive, or operate heavy machinery while taking Elko as this may cause drowsiness. - Please note that this Emergency Department Report was dictated using [employer] dredger technology software, occasionally this can lead to erroneous entry secondary to interpretation by the dictation equipment. Jaky See Jan 09, 2018 16:17
[2018-01-09] MEDS ORDERED: TYLENOL325 M1 PO (16:21)
[2018-01-09] MEDS ORDERED: PREDNISONE50 MG ORAL (16:21)
[2018-01-09] MEDS ORDERED: NORCO 5-325 TA1 EACH ORAL (16:21)
[2018-01-09 16:34] VITALS: BP 132/76
[2018-01-09 17:21] VITALS: BP 132/76
== END 2018-01-09 17:21 | disposition home or self-care (01) ==
LOC: EMR 16:12
DX: R51 Headache (principal); M31.6 Other giant cell arteritis; I10 Essential (primary) hypertension
CPT/HCPCS: 99283; J7512

== ENCOUNTER 2018-01-11 11:20 | Inpatient (IN) | payer MEDICARE, OTHER ==
[~2018-01-11] VITALS: Ht 165.1 cm; Wt 92.5 kg
[~2018-01-11 11:20] MED LIST changes: +PREDNISONE50 MG ORAL; +TYLENOL325 M1 PO
[2018-01-11] MEDS ORDERED: SERTRALINE HCL50 MG ORAL (11:35)
[2018-01-11] MEDS ORDERED: AVAPRO75 MG ORAL (11:35)
[2018-01-11] MEDS ORDERED: LYRICA100 MG ORAL (11:35)
[2018-01-11] MEDS ORDERED: BANOPHEN50 MG PO (11:35)
--- NOTE | 2018-01-11 12:28 | Diagnostic Imaging Report ---
Indication: Right-sided headache Technique: Continuous helical CT scanning of the head was performed without intravenous contrast material. Axial and coronal 5 mm sections were generated. Radiation dose was minimized using automated exposure control Dose: Total Dose Length Product - DLP 1407.[address] Dose Index - CTDIvol(s) 70.38 mGy. Comparison: 08/19/2015 Findings: The ventricular system is normal in size and configuration. There is no shift of midline structures. No abnormal extra-axial fluid collections are noted. There is no evidence of intracerebral bleeding. No other abnormal high or low density areas are noted within the brain. Normal sotelo-white differentiation. Sinuses and mastoids are clear. Intact calvarium. No significant interim change Impression: Normal CT scan of the head without contrast material. The CT scanner at [facility] is accredited by the [employer] and the scans are performed using protocols designed to limit radiation exposure to as low as reasonably achievable to attain images of sufficient resolution adequate for diagnostic evaluation.
--- NOTE | 2018-01-11 12:29 | Diagnostic Imaging Report ---
Indication: Chest pain Technique: One view of the chest Comparison: 08/15/2017 Findings: The heart is enlarged. The lungs pleural spaces are clear. There are cholecystectomy clips. No significant interim change Impression: Cardiomegaly. No acute process
--- NOTE | 2018-01-11 12:42 | Emergency Room Report ---
History of Present Illness General Chief Complaint: Generalized Weakness Source: Patient Present Illness HPI Patient presents with complaints of headache Reports that she's been having right-sided headache and temporal area for the past several days She also reports having several falls and feeling unsteady There was a question of feeling some neuropathy and tingling in her right upper arm which has resolved Denies any chest pain denies any focal weakness Denies any vomiting or diarrhea denies any fevers or chills She reports recent URI symptoms with runny nose Allergies: Coded Allergies: NAPROXEN (Verified Allergy, Severe, 11/09/16) SKIN RASH,ITCHING ESCITALOPRAM (Verified Allergy, Intermediate, hives, 11/09/16) Patient History Past Medical History: see triage record Pertinent Family History: none Reviewed Nursing Documentation: PMH: Agreed; PSxH: Agreed Nursing Documentation-PMH Past Medical History: No History, Except For Hx Hypertension: Yes Hx Cancer: No Hx Gastrointestinal Problems: No Hx Dialysis: No Hx Neurological Problems: Yes Hx Transient Ischemic Attacks: Yes - 2011, 2012 Hx Memory Loss: Yes - RESOLVED Hx Speech Problem: Yes - RESOLVED Hx Dizziness: Yes - RESOLVED Hx Weakness: Yes - RESOLVED Review of Systems All Other Systems: negative except mentioned in HPI Physical Exam Vital Signs Date Time Temp Pulse Resp B/P (MAP) Pulse Ox O2 Delivery O2 Flow Rate FiO2 01/11/18 11:23 98.4 60 18 155/95 97 Room Air 98.4 Sp02 EP Interpretation: reviewed, normal General Appearance: well appearing, no apparent distress Head: normocephalic, atraumatic Eyes: bilateral eye PERRL, bilateral eye EOMI ENT: hearing grossly normal, normal pharynx, TMs + canals normal, uvula midline Neck: full range of motion, supple, no meningismus, no bony tend Respiratory: lungs clear, normal breath sounds, no rhonchi, no respiratory distress, no retraction, no accessory muscle use Cardiovascular #1: normal peripheral pulses, regular rate, rhythm, no edema, no gallop, no JVD, no murmur Gastrointestinal: normal bowel sounds, non tender, soft, no mass, no organomegaly, non-distended, no guarding, no hernia, no pulsatile mass, no rebound Genitourinary: no CVA tenderness Musculoskeletal: normal inspection Neurologic: oriented x3, responsive, improvement engineer III-XII nml as tested, motor strength/ tone normal, sensory intact Psychiatric: mood/affect normal Skin: normal color, no rash, warm/dry, palpation normal Lymphatic: normal inspection, no adenopathy Medical Decision Making Diagnostic Impression: Primary Impression: Episode of generalized weakness Additional Impression: Dizziness ER Course Patient is a fairly complex patient with multiple differential to consideration including but not limited to cardiac cardiopulmonary , neurological and vascular emergencies CT head was negative for acute pathology Patient does not meet criteria for thrombolytic therapy given that her examination is appropriate with equal operator helper Given the patient's multiple falls however continued severe dizziness Further evaluation is required with neurology consultation and patient is admitted for further care Labs Test 01/11/18 12:35 White Blood Count 13.0 K/UL (4.8-10.8) Red Blood Count 4.70 M/UL (4.20-5.40) Hemoglobin 14.0 G/DL (12.0-16.0) Hematocrit 43.1 % (37.0-47.0) Mean Corpuscular Volume 92 FL (80-99) Mean Corpuscular Hemoglobin 29.9 PG (27.0-31.0) Mean Corpuscular Hemoglobin Concent 32.5 G/DL (32.0-36.0) Red Cell Distribution Width 11.5 % (11.6-14.8) Platelet Count 338 K/UL (150-450) Mean Platelet Volume 7.2 FL (6.5-10.1) Neutrophils (%) (Auto) 65.0 % (45.0-75.0) Lymphocytes (%) (Auto) 29.5 % (20.0-45.0) Monocytes (%) (Auto) 5.0 % (1.0-10.0) Eosinophils (%) (Auto) 0.0 % (0.0-3.0) Basophils (%) (Auto) 0.5 % (0.0-2.0) Sodium Level 145 MMOL/L (136-145) Potassium Level 3.6 MMOL/L (3.5-5.1) Chloride Level 108 MMOL/L (98-107) Carbon Dioxide Level 28 MMOL/L (21-32) Anion Gap 9 mmol/L (5-15) Blood Urea Nitrogen 16 mg/dL (7-18) Creatinine 1.0 MG/DL (0.55-1.30) Estimat Glomerular Filtration Rate > 60 mL/min (>60) Glucose Level 91 MG/DL (74-106) Lactic Acid Level 0.90 mmol/L (0.4-2.0) Calcium Level 8.8 MG/DL (8.5-10.1) Troponin I 0.000 ng/mL (0.000-0.056) Rhythm Strip Diag. Results EP Interpretation: yes Rate: 66 Rhythm: NSR, no PVC's, no ectopy Chest X-Ray Diagnostic Results Chest X-Ray Diagnostic Results : Chest X-Ray Ordered: Yes # of Views/Limited/Complete: 1 View Indication: Chest Pain EP Interpretation: Yes Interpretation: no consolidation, no effusion, no pneumothorax Impression: No acute disease Electronically Signed by: Dina Mercado DO Last Vital Signs Date Time Temp Pulse Resp B/P (MAP) Pulse Ox O2 Delivery O2 Flow Rate FiO2 01/11/18 11:39 60 18 Room Air 01/11/18 11:23 98.4 155/95 97 98.4 Status: improved Disposition: ADMITTED INPATIENT Condition: Serious Referrals: Sukh Castañeda MD (PCP) Dina Mercado DO Jan 11, 2018 12:42
[2018-01-11] MEDS ORDERED: LORazepam Inj 2mg/ml 1ml IV PRN (12:45)
[2018-01-11] MEDS ORDERED: Albuterol/Ipratropium 3ml neb HHN PRN (12:45)
[2018-01-11] MEDS ORDERED: Nitroglycerin Subl 0.4mg tab SL PRN (12:45)
[2018-01-11] MEDS ORDERED: Mylanta II UD 30ml ORAL PRN (12:45)
[2018-01-11] MEDS ORDERED: Norco 5mg/325mg tab ORAL PRN (12:45)
[2018-01-11] MEDS ORDERED: Morphine Sulfate 4mg/ml Inj (IV/IM USE ONLY) IVP ONE (12:45)
[2018-01-11] MEDS ORDERED: Promethazine/Codeine 5ml UD ORAL PRN (12:45)
[2018-01-11 12:59] LABS: BASOPHILS % (AUTO) 0.5 % (0.0-2.0); HEMATOCRIT 43.1 % (37.0-47.0); LYMPHOCYTES % (AUTO) 29.5 % (20.0-45.0); MEAN CORPUSCULAR VOLUME 92 FL (80-99); PLATELET COUNT 338 K/UL (150-450); RED CELL DISTRIBUTION WIDTH 11.5 % (11.6-14.8)
[2018-01-11 13:00] VITALS: BP_SYST 157; BP_DIAS 79; BP_DIAS 92
[2018-01-11 13:09] LABS: ANION GAP 9 mmol/L (5-15); BLOOD UREA NITROGEN 16 mg/dL (7-18); CALCIUM 8.8 MG/DL (8.5-10.1); CARBON DIOXIDE 28 MMOL/L (21-32); CHLORIDE 108 MMOL/L (98-107); POTASSIUM 3.6 MMOL/L (3.5-5.1); SODIUM 145 MMOL/L (136-145)
[2018-01-11] MEDS: Morphine Sulfate 2mg/ml Inj IVP PRN ×2 (13:14→19:02)
[2018-01-11 13:22] LABS: ALANINE AMINOTRANSFERASE 20 U/L (12-78); ALBUMIN 3.4 G/DL (3.4-5.0); ALBUMIN/GLOBULIN RATIO 0.9 (1.0-2.7); ALKALINE PHOSPHATASE 90 U/L (46-116); ASPARTATE AMINO TRANSFERASE 11 U/L (15-37); BILIRUBIN,TOTAL 0.2 MG/DL (0.2-1.0); CKMB 0.7 NG/ML (0.0-3.6); CREATINE KINASE 48 U/L (26-308)
[2018-01-11] MEDS: D5 1/2NS 1,000 ML IV SCH (14:43)
[2018-01-11 16:00] VITALS: BP 131/72
--- NOTE | 2018-01-11 16:38 | Cardiology Report ---
APPROVED REPORT EXAM: Two-dimensional and M-mode echocardiogram with Doppler and color Doppler. INDICATION Left ventricular function M-Mode DIMENSIONS IVSd1.1 (0.7-1.1cm)Left Atrium (MM)3.8 (1.6-4.0cm) LVDd4.7 (3.5-5.6cm)Aortic Root2.8 (2.0-3.7cm) PWd1.1 (0.7-1.1cm)Aortic Cusp Exc.2.0 (1.5-2.0cm) LVDs2.9 (2.5-4.0cm) PWs1.6 cm Normal left ventricular chamber size, systolic function and wall motion. Left ventricular ejection fraction estimated to be 55 %. Borderline left ventricular hypertrophy. Anterior Echo-free space, may be due to pericardial fat or effusion. All other cardiac chamber sizes are within normal limits. Focal aortic valve sclerosis with adequate cusp excursion. Mildly thickened mitral valve leaflets with normal excursion. Mild mitral annulus and aortic root calcification. Normal pulmonic valve structure. Normal tricuspid valve structure. IVC dilated at 2.1 cm with physiological collapse. A color flow and spectral Doppler study was performed and revealed: No aortic insufficiency. Mild mitral regurgitation. Normal left ventricular diastolic function. Mild tricuspid regurgitation. Tricuspid systolic velocities suggests peak right ventricular systolic pressure of 34 mmHg. Trace pulmonic regurgitation present.
[2018-01-11] MEDS ORDERED: Flu Vaccine (Alfuria) for Pts Less than 65 Years old IM ONE (17:00)
[2018-01-11] MEDS ORDERED: Lyrica 75mg cap ORAL SCH (18:00)
[2018-01-11 19:34] LABS: APPEARANCE,URINE CLEAR; BILIRUBIN, URINE 1+ (NEGATIVE); COLOR,URINE AMBER; GLUCOSE, URINE (UA) NEGATIVE (NEGATIVE); KETONES,URINE 1+ (NEGATIVE); LEUKOCYTE ESTERASE ,URINE 1+ (NEGATIVE); NITRITE,URINE NEGATIVE (NEGATIVE); PH,URINE 5 (4.5-8.0); PROTEIN,URINE 1+ (NEGATIVE); UROBILINOGEN,URINE 1 MG/DL (0.0-1.0)
[2018-01-11 20:00] VITALS: BP 141/75
[2018-01-11] MEDS: Heparin 5000 units/ml inj SUBQ SCH (20:18)
[2018-01-11] MEDS ORDERED: Miralax 17gm pkt ORAL PRN (21:00)
[2018-01-12] VITALS: BP 115/59
[2018-01-12] MEDS: Morphine Sulfate 2mg/ml Inj IVP PRN ×3 (00:40→20:02)
[2018-01-12 04:00] VITALS: BP 104/60
[2018-01-12 06:36] LABS: BASOPHILS % (AUTO) 0.7 % (0.0-2.0); EOSINOPHILS % (AUTO) 0.4 % (0.0-3.0); HEMATOCRIT 37.1 % (37.0-47.0); HEMOGLOBIN 12.4 G/DL (12.0-16.0); LYMPHOCYTES % (AUTO) 50.9 % (20.0-45.0); MEAN CORPUSCULAR VOLUME 93 FL (80-99); MONOCYTES % (AUTO) 6.2 % (1.0-10.0); NEUTROPHILS % (AUTO) 41.9 % (45.0-75.0); PLATELET COUNT 282 K/UL (150-450); RED CELL DISTRIBUTION WIDTH 11.6 % (11.6-14.8); WHITE BLOOD COUNT 8.2 K/UL (4.8-10.8)
[2018-01-12 06:46] LABS: AMMONIA < 10 umol/L (11-32)
[2018-01-12 06:59] LABS: ALANINE AMINOTRANSFERASE 36 U/L (12-78); ALBUMIN 2.9 G/DL (3.4-5.0); ALBUMIN/GLOBULIN RATIO 0.9 (1.0-2.7); ALKALINE PHOSPHATASE 86 U/L (46-116); ANION GAP 8 mmol/L (5-15); ASPARTATE AMINO TRANSFERASE 22 U/L (15-37); BILIRUBIN,TOTAL 0.2 MG/DL (0.2-1.0); BLOOD UREA NITROGEN 16 mg/dL (7-18); CALCIUM 8.3 MG/DL (8.5-10.1); CARBON DIOXIDE 27 MMOL/L (21-32); CHLORIDE 107 MMOL/L (98-107); CHOLESTEROL 162 MG/DL (< 200); HDL CHOLESTEROL 48 MG/DL (40-60); POTASSIUM 3.9 MMOL/L (3.5-5.1); SODIUM 142 MMOL/L (136-145); TRIGLYCERIDES 106 MG/DL (30-150)
[2018-01-12 08:37] VITALS: BP 146/77
[2018-01-12] MEDS: D5 1/2NS 1,000 ML IV SCH (09:54)
[2018-01-12] MEDS: Heparin 5000 units/ml inj SUBQ SCH ×2 (09:57→21:05)
[2018-01-12 11:23] VITALS: BP 153/78
--- NOTE | 2018-01-12 12:48 | Consultation ---
History of Present Illness General Date patient seen: Jan 11, 2018 Chief Complaint: Generalized Weakness Present Illness HPI 62 year old female with hx of HTN presented to ER with complaints of right- sided headache in temporal area for the past several days She also reports having several falls and feeling unsteady. She also had some tingling in her right upper arm which has resolved. she is admitted to rule out CVA, etc. She reports recent URI symptoms with runny nose. Pt is seen in ER and admitting orders were done. Allergies: Coded Allergies: NAPROXEN (Verified Allergy, Severe, 11/09/16) SKIN RASH,ITCHING ESCITALOPRAM (Verified Allergy, Intermediate, hives, 11/09/16) Medication History Scheduled Aspirin Ec* (Aspirin Ec*), 325 MG ORAL DAILY, (Reported) Irbesartan* (Avapro*), 75 MG ORAL DAILY, (Reported) Lidocaine (Lidocaine), 5 % TP DAILY Lovastatin (Lovastatin), 10 MG ORAL BEDTIME, (Reported) Omeprazole Magnesium (Prilosec Otc), 20 MG ORAL DAILY Sertraline Hcl* (Zoloft*), 50 MG ORAL DAILY, (Reported) Scheduled PRN Hydrocodone Bit/Acetaminophen 5-325* ([place] 5-325*), 1 TAB ORAL Q6H PRN for Breakthrough Pain Miscellaneous Medications Clonidine HCl (Clonidine HCl), 0.1 MG PO, (Reported) Diclofenac Sodium (Diclofenac Sodium), 100 MG PO, (Reported) Diphenhydramine Hcl (Banophen), 50 MG PO, (Reported) Discontinued Medications Acetaminophen (Tylenol), 325 MG PO Q6HR Discontinued Reason: Pt stopped taking med Fluticasone Propionate* (Fluticasone Propionate*), 1 SPRAY NASAL DAILY, ( Reported) Discontinued Reason: Pt stopped taking med Lurasidone Hcl (Latuda), 20 MG PO DA, (Reported) Discontinued Reason: Pt stopped taking med Methocarbamol* (Robaxin*), 500 MG PO TID Discontinued Reason: Pt stopped taking med Metronidazole (Metronidazole), 1 APPLIC TOPIC TWICE A DAY Discontinued Reason: Pt stopped taking med Neomycin/Polymyxin B Sulf/Hc (Tfcaulnh-Kzbn-Be Eye Drops), 7.5 ML OP, (Reported) Discontinued Reason: Pt stopped taking med Prednisone* (Prednisone*), 1.5 TAB ORAL DAILY Discontinued Reason: Pt stopped taking med Pregabalin (Lyrica), 75 MG ORAL THREE TIMES A DAY, (Reported) Discontinued Reason: Pt stopped taking med Tizanidine Hcl* (Zanaflex*), 4 MG ORAL DA, (Reported) Discontinued Reason: Pt stopped taking med Tobramycin Sulf (Tobramycin), 1 DROP BOTH EYES Q4H, (Reported) Discontinued Reason: Pt stopped taking med Valsartan/Hydrochlorothiazide 160-25MG (Valsartan-Hctz 160-25 Mg Tab), 1 TAB ORAL DAILY, (Reported) Discontinued Reason: Pt stopped taking med Patient History Healthcare decision maker Resuscitation status Full Code Advanced Directive on File Past Medical/Surgical History Past Medical/Surgical History: (1) Depression (2) Hypercholesterolemia (3) HTN (hypertension) (4) Status post laparoscopic cholecystectomy Review of Systems All Other Systems: negative except mentioned in HPI Physical Exam General Appearance: WD/WN, no apparent distress Lines, tubes and drains: peripheral HEENT: normocephalic, atraumatic Neck: non-tender, normal alignment Respiratory/Chest: chest wall non-tender, lungs clear, normal breath sounds Breasts: no masses Cardiovascular/Chest: normal rate, no JVD Abdomen: non tender, soft Genitourinary/Rectal: normal genital exam Extremities: normal range of motion Last 24 Hour Vital Signs Date Time Temp Pulse Resp B/P (MAP) Pulse Ox O2 Delivery O2 Flow Rate FiO2 01/12/18 11:23 97.6 57 20 153/78 (103) 98 01/12/18 09:43 152/82 01/12/18 09:00 Room Air 01/12/18 08:37 97.8 58 19 146/77 (100) 99 01/12/18 04:00 97.5 60 18 104/60 (75) 98 01/12/18 00:00 97.0 65 17 115/59 (77) 99 01/11/18 21:00 Room Air 01/11/18 20:00 97.9 55 18 141/75 (97) 98 01/11/18 16:00 98.3 57 16 131/72 (91) 98 01/11/18 14:07 Nasal Cannula 2.0 01/11/18 14:01 Nasal Cannula 2.0 01/11/18 13:45 98.4 86 18 157/79 97 Nasal Cannula 4.0 01/11/18 13:14 98.4 01/11/18 13:00 98.4 86 18 157/79 97 Nasal Cannula 4.0 01/11/18 12:44 98.4 Intake and Output 01/11/18 01/12/18 19:00 07:00 Intake Total 200 ml 840 ml Balance 200 ml 840 ml Intake Oral 0 ml 240 ml IV Total 200 ml 600 ml # Voids 2 Laboratory Tests Test 01/11/18 19:00 01/12/18 05:10 Urine Color Prudence Urine Appearance Clear Urine pH 5 (4.5-8.0) Urine Specific [place] 1.025 (1.005-1.035) Urine Protein 1+ (NEGATIVE) H Urine Glucose (UA) Negative (NEGATIVE) Urine Ketones 1+ (NEGATIVE) H Urine Blood Negative (NEGATIVE) Urine Nitrite Negative (NEGATIVE) Urine Bilirubin 1+ (NEGATIVE) H Urine Ictotest Negative (NEGATIVE) Urine Urobilinogen 1 MG/DL (0.0-1.0) H Urine Leukocyte Esterase 1+ (NEGATIVE) H Urine RBC 0-2 /HPF (0 - 2) Urine WBC 0-2 /HPF (0 - 2) Urine Squamous Epithelial Cells Moderate /LPF (NONE/OCC) H Urine Calcium Oxalate Crystals Many /LPF (NONE) Urine Bacteria Moderate /HPF (NONE) H White Blood Count 8.2 K/UL (4.8-10.8) Red Blood Count 4.00 M/UL (4.20-5.40) L Hemoglobin 12.4 G/DL (12.0-16.0) Hematocrit 37.1 % (37.0-47.0) Mean Corpuscular Volume 93 FL (80-99) Mean Corpuscular Hemoglobin 31.0 PG (27.0-31.0) Mean Corpuscular Hemoglobin Concent 33.4 G/DL (32.0-36.0) Red Cell Distribution Width 11.6 % (11.6-14.8) Platelet Count 282 K/UL (150-450) Mean Platelet Volume 7.2 FL (6.5-10.1) Neutrophils (%) (Auto) 41.9 % (45.0-75.0) L Lymphocytes (%) (Auto) 50.9 % (20.0-45.0) H Monocytes (%) (Auto) 6.2 % (1.0-10.0) Eosinophils (%) (Auto) 0.4 % (0.0-3.0) Basophils (%) (Auto) 0.7 % (0.0-2.0) Prothrombin Time 10.6 SEC (9.30-11.50) Prothromb Time International Ratio 1.0 (0.9-1.1) Activated Partial Thromboplast Time 28 SEC (23-33) Sodium Level 142 MMOL/L (136-145) Potassium Level 3.9 MMOL/L (3.5-5.1) Chloride Level 107 MMOL/L (98-107) Carbon Dioxide Level 27 MMOL/L (21-32) Anion Gap 8 mmol/L (5-15) Blood Urea Nitrogen 16 mg/dL (7-18) Creatinine 1.0 MG/DL (0.55-1.30) Estimat Glomerular Filtration Rate > 60 mL/min (>60) Glucose Level 97 MG/DL (74-106) Calcium Level 8.3 MG/DL (8.5-10.1) L Total Bilirubin 0.2 MG/DL (0.2-1.0) Aspartate Amino Transf (AST/SGOT) 22 U/L (15-37) Alanine Aminotransferase (ALT/SGPT) 36 U/L (12-78) Alkaline Phosphatase 86 U/L (46-116) Ammonia < 10 umol/L (11-32) L Total Protein 6.3 G/DL (6.4-8.2) L Albumin 2.9 G/DL (3.4-5.0) L Globulin 3.4 g/dL Albumin/Globulin Ratio 0.9 (1.0-2.7) L Triglycerides Level 106 MG/DL (30-150) Cholesterol Level 162 MG/DL (< 200) LDL Cholesterol 93 mg/dL (<100) HDL Cholesterol 48 MG/DL (40-60) Cholesterol/HDL Ratio 3.4 (3.3-4.4) Thyroid Stimulating Hormone (TSH) 2.271 uiU/mL (0.358-3.740) Microbiology Date/Time Source Procedure Growth Status 01/11/18 19:00 Urine,Clean Catch Urine Culture - Preliminary Resulted Height (Feet): 5 Height (Inches): 5.00 Weight (Pounds): 204 Medications Current Medications Medications (Trade) Dose Ordered Sig/Ricci Route PRN Reason Start Time Stop Time Status Last Admin Dose Admin Acetaminophen (Tylenol) 650 mg Q4H PRN ORAL T>100.5 01/11/18 12:45 02/10/18 12:44 Acetaminophen/ Hydrocodone Bitart ([place] 5/325) 1 tab Q6H PRN ORAL Moderate Pain (Pain Scale 4-6) 01/11/18 12:45 01/18/18 12:44 Al Hydroxide/Mg Hydroxide (Mylanta II) 30 ml Q6H PRN ORAL dyspepsia 01/11/18 12:45 02/10/18 12:44 Albuterol/ Ipratropium (Albuterol/ Ipratropium) 3 ml Q4H PRN HHN Shortness of Breath 01/11/18 12:45 01/16/18 12:44 Clonidine HCl (Catapres Tab) 0.1 mg Q4H PRN ORAL SBP > 160mmHg 01/11/18 12:45 02/10/18 12:44 Dextrose (Dextrose 50%) 25 ml Q30M PRN IV Hypoglycemia 01/11/18 12:45 02/10/18 12:44 Dextrose (Dextrose 50%) 50 ml Q30M PRN IV Hypoglycemia 01/11/18 12:45 02/10/18 12:44 Dextrose/Sodium Chloride 1,000 ml @ 50 mls/hr Q20H IV 01/11/18 13:00 02/10/18 12:59 01/12/18 09:54 Heparin Sodium (Porcine) (Heparin 5000 units/ml) 5,000 units EVERY 12 HOURS SUBQ 01/11/18 21:00 02/10/18 20:59 01/12/18 09:57 Irbesartan (Avapro) 75 mg DAILY ORAL 01/12/18 09:00 02/11/18 08:59 01/12/18 09:43 Lorazepam (Ativan 2mg/ml 1ml) 0.5 mg Q4H PRN IV For Anxiety 01/11/18 12:45 01/18/18 12:44 Morphine Sulfate (Morphine Sulfate) 1 mg Q4H PRN IVP Severe Pain (Pain Scale 7-10) 01/11/18 12:45 01/18/18 12:44 01/12/18 09:46 Nitroglycerin (Ntg) 0.4 mg Q5M X 3 DOSES PRN SL Prn Chest Pain 01/11/18 12:45 02/10/18 12:44 Ondansetron HCl (Zofran) 4 mg Q6H PRN IVP Nausea & Vomiting 01/11/18 12:45 02/10/18 12:44 01/11/18 13:37 Polyethylene Glycol (Miralax) 17 gm HSPRN PRN ORAL Constipation 01/11/18 21:00 02/10/18 20:59 Promethazine HCl/ Codeine (Phenergan with Codeine) 5 ml Q4H PRN ORAL For Cough 01/11/18 12:45 02/10/18 12:44 Temazepam (Restoril) 15 mg HSPRN PRN ORAL Insomnia 01/11/18 21:00 01/18/18 20:59 01/11/18 22:05 Tizanidine HCl (Zanaflex) 4 mg DAILYPRN PRN ORAL Muscle spasms 01/11/18 13:00 02/10/18 12:59 Assessment/Plan Problem List: (1) Cerebrovascular accident (CVA) ICD Codes: I63.9 - Cerebral infarction, unspecified SNOMED: 979934331 (2) Recurrent falls ICD Codes: R29.6 - Repeated falls SNOMED: 062936259 (3) Obesity ICD Codes: E66.9 - Obesity, unspecified SNOMED: 560136849 (4) Headache ICD Codes: R51 - Headache SNOMED: 44838121 (5) HTN (hypertension) ICD Codes: I10 - Essential (primary) hypertension SNOMED: 61160385 (6) Depression ICD Codes: F32.9 - Major depressive disorder, single episode, unspecified SNOMED: 24827649 (7) Episode of generalized weakness ICD Codes: R53.1 - Weakness SNOMED: 28792601 Assessment/Plan Neuro evaluation f/u CT of head results echo, MRI, doppler of carotid artery symptomatic treatment. Fabricio Espinoza MD Jan 12, 2018 12:48
--- NOTE | 2018-01-12 12:50 | Pulmonology Progress Note ---
Assessment/Plan Problems: (1) Cerebrovascular accident (CVA) (2) Recurrent falls (3) Obesity (4) Headache (5) HTN (hypertension) (6) Depression (7) Episode of generalized weakness Assessment/Plan echo reviewed, monitor BP MRI of brain symptomatic treatment Subjective Constitutional: Reports: no symptoms HEENT: Repors: no symptoms Respiratory: Reports: no symptoms Allergies: Coded Allergies: NAPROXEN (Verified Allergy, Severe, 11/09/16) SKIN RASH,ITCHING ESCITALOPRAM (Verified Allergy, Intermediate, hives, 11/09/16) Objective Last 24 Hour Vital Signs Date Time Temp Pulse Resp B/P (MAP) Pulse Ox O2 Delivery O2 Flow Rate FiO2 01/12/18 11:23 97.6 57 20 153/78 (103) 98 01/12/18 09:43 152/82 01/12/18 09:00 Room Air 01/12/18 08:37 97.8 58 19 146/77 (100) 99 01/12/18 04:00 97.5 60 18 104/60 (75) 98 01/12/18 00:00 97.0 65 17 115/59 (77) 99 01/11/18 21:00 Room Air 01/11/18 20:00 97.9 55 18 141/75 (97) 98 01/11/18 16:00 98.3 57 16 131/72 (91) 98 01/11/18 14:07 Nasal Cannula 2.0 01/11/18 14:01 Nasal Cannula 2.0 01/11/18 13:45 98.4 86 18 157/79 97 Nasal Cannula 4.0 01/11/18 13:14 98.4 01/11/18 13:00 98.4 86 18 157/79 97 Nasal Cannula 4.0 Intake and Output 01/11/18 01/12/18 19:00 07:00 Intake Total 200 ml 840 ml Balance 200 ml 840 ml Intake Oral 0 ml 240 ml IV Total 200 ml 600 ml # Voids 2 General Appearance: WD/WN HEENT: normocephalic Respiratory/Chest: chest wall non-tender, lungs clear Breasts: no masses Cardiovascular: normal peripheral pulses Abdomen: soft, non tender Genitourinary: normal external genitalia Extremities: no clubbing Skin: no rash Microbiology Date/Time Source Procedure Growth Status 01/11/18 19:00 Urine,Clean Catch Urine Culture - Preliminary Resulted Laboratory Tests 01/11/18 19:00: Urine Color Prudence, Urine Appearance Clear, Urine pH 5, Urine Specific [place] 1.025, Urine Protein 1+H, Urine Glucose (UA) Negative, Urine Ketones 1+H, Urine Blood Negative, Urine Nitrite Negative, Urine Bilirubin 1+H, Urine Ictotest Negative, Urine Urobilinogen 1H, Urine Leukocyte Esterase 1+H, Urine RBC 0-2, Urine WBC 0-2, Urine Squamous Epithelial Cells ModerateH, Urine Calcium Oxalate Crystals Many, Urine Bacteria ModerateH 01/12/18 05:10: White Blood Count 8.2, Red Blood Count 4.00L, Hemoglobin 12.4, Hematocrit 37.1, Mean Corpuscular Volume 93, Mean Corpuscular Hemoglobin 31.0, Mean Corpuscular Hemoglobin Concent 33.4, Red Cell Distribution Width 11.6, Platelet Count 282, Mean Platelet Volume 7.2, Neutrophils (%) (Auto) 41.9L, Lymphocytes (%) (Auto) 50.9H, Monocytes (%) (Auto) 6.2, Eosinophils (%) (Auto) 0.4, Basophils (%) (Auto ) 0.7, Prothrombin Time 10.6, Prothromb Time International Ratio 1.0, Activated Partial Thromboplast Time 28, Sodium Level 142, Potassium Level 3.9, Chloride Level 107, Carbon Dioxide Level 27, Anion Gap 8, Blood Urea Nitrogen 16, Creatinine 1.0, Estimat Glomerular Filtration Rate > 60, Glucose Level 97, Calcium Level 8.3L, Total Bilirubin 0.2, Aspartate Amino Transf (AST/SGOT) 22, Alanine Aminotransferase (ALT/SGPT) 36, Alkaline Phosphatase 86, Ammonia < 10L, Total Protein 6.3L, Albumin 2.9L, Globulin 3.4, Albumin/Globulin Ratio 0.9L, Triglycerides Level 106, Cholesterol Level 162, LDL Cholesterol 93, HDL Cholesterol 48, Cholesterol/HDL Ratio 3.4, Thyroid Stimulating Hormone (TSH) 2.271 Current Medications Medications (Trade) Dose Ordered Sig/Ricci Route PRN Reason Start Time Stop Time Status Last Admin Dose Admin Acetaminophen (Tylenol) 650 mg Q4H PRN ORAL T>100.5 01/11/18 12:45 02/10/18 12:44 Acetaminophen/ Hydrocodone Bitart ([place] 5/325) 1 tab Q6H PRN ORAL Moderate Pain (Pain Scale 4-6) 01/11/18 12:45 01/18/18 12:44 Al Hydroxide/Mg Hydroxide (Mylanta II) 30 ml Q6H PRN ORAL dyspepsia 01/11/18 12:45 02/10/18 12:44 Albuterol/ Ipratropium (Albuterol/ Ipratropium) 3 ml Q4H PRN HHN Shortness of Breath 01/11/18 12:45 01/16/18 12:44 Clonidine HCl (Catapres Tab) 0.1 mg Q4H PRN ORAL SBP > 160mmHg 01/11/18 12:45 02/10/18 12:44 Dextrose (Dextrose 50%) 25 ml Q30M PRN IV Hypoglycemia 01/11/18 12:45 02/10/18 12:44 Dextrose (Dextrose 50%) 50 ml Q30M PRN IV Hypoglycemia 01/11/18 12:45 02/10/18 12:44 Dextrose/Sodium Chloride 1,000 ml @ 50 mls/hr Q20H IV 01/11/18 13:00 02/10/18 12:59 01/12/18 09:54 Heparin Sodium (Porcine) (Heparin 5000 units/ml) 5,000 units EVERY 12 HOURS SUBQ 01/11/18 21:00 02/10/18 20:59 01/12/18 09:57 Irbesartan (Avapro) 75 mg DAILY ORAL 01/12/18 09:00 02/11/18 08:59 01/12/18 09:43 Lorazepam (Ativan 2mg/ml 1ml) 0.5 mg Q4H PRN IV For Anxiety 01/11/18 12:45 01/18/18 12:44 Morphine Sulfate (Morphine Sulfate) 1 mg Q4H PRN IVP Severe Pain (Pain Scale 7-10) 01/11/18 12:45 01/18/18 12:44 01/12/18 09:46 Nitroglycerin (Ntg) 0.4 mg Q5M X 3 DOSES PRN SL Prn Chest Pain 01/11/18 12:45 02/10/18 12:44 Ondansetron HCl (Zofran) 4 mg Q6H PRN IVP Nausea & Vomiting 01/11/18 12:45 02/10/18 12:44 01/11/18 13:37 Polyethylene Glycol (Miralax) 17 gm HSPRN PRN ORAL Constipation 01/11/18 21:00 02/10/18 20:59 Promethazine HCl/ Codeine (Phenergan with Codeine) 5 ml Q4H PRN ORAL For Cough 01/11/18 12:45 02/10/18 12:44 Temazepam (Restoril) 15 mg HSPRN PRN ORAL Insomnia 01/11/18 21:00 01/18/18 20:59 01/11/18 22:05 Tizanidine HCl (Zanaflex) 4 mg DAILYPRN PRN ORAL Muscle spasms 01/11/18 13:00 02/10/18 12:59 Fabricio Espinoza MD Jan 12, 2018 12:50
--- NOTE | 2018-01-12 14:32 | Diagnostic Imaging Report ---
Indication: Right-sided weakness Technique: The head was imaged in a 1.5 Audrey magnet. Sequences obtained include sagittal and axial T1 FLAIR, axial T2 fast spin echo with fat saturation, axial T2 FLAIR, diffusion and ADC map. Comparison: None Findings: There is mild prominence of the sulci, ventricles, and basal cisterns consistent with atrophy. Mild, patchy, nonspecific T2 hyperintensity noted within white matter. This may be due to chronic small vessel disease given the patient's age. There is no restricted diffusion. Slaughter-white differentiation is normal. There is no mass effect, midline shift, edema, or hemorrhage. There are no abnormal extra-axial or intra-axial fluid collections. The corpus callosum and sella are unremarkable. The brainstem and cerebellum are unremarkable. Bone marrow signal within the visualized osseous structures appears age appropriate and unremarkable otherwise. Impression: No acute intracranial findings. Mild atrophy and evidence of chronic small vessel disease involving white matter tracts.
[2018-01-12 15:25] VITALS: BP 160/76
[2018-01-12 20:00] VITALS: BP 155/88
--- NOTE | 2018-01-12 20:54 | Consultation ---
History of Present Illness General Date patient seen: Jan 11, 2018 Chief Complaint: Generalized Weakness Present Illness HPI 62 yo female presents with complaints of headache. the pt stated she was having right-sided headache and temporal area for the past several day. the pt has hx of depression and anxiety. the pt believed that something serious happening with her health Allergies: Coded Allergies: NAPROXEN (Verified Allergy, Severe, 11/09/16) SKIN RASH,ITCHING ESCITALOPRAM (Verified Allergy, Intermediate, hives, 11/09/16) Medication History Scheduled Aspirin Ec* (Aspirin Ec*), 325 MG ORAL DAILY, (Reported) Irbesartan* (Avapro*), 75 MG ORAL DAILY, (Reported) Lidocaine (Lidocaine), 5 % TP DAILY Lovastatin (Lovastatin), 10 MG ORAL BEDTIME, (Reported) Omeprazole Magnesium (Prilosec Otc), 20 MG ORAL DAILY Sertraline Hcl* (Zoloft*), 50 MG ORAL DAILY, (Reported) Scheduled PRN Hydrocodone Bit/Acetaminophen 5-325* ([place] 5-325*), 1 TAB ORAL Q6H PRN for Breakthrough Pain Miscellaneous Medications Clonidine HCl (Clonidine HCl), 0.1 MG PO, (Reported) Diclofenac Sodium (Diclofenac Sodium), 100 MG PO, (Reported) Diphenhydramine Hcl (Banophen), 50 MG PO, (Reported) Discontinued Medications Acetaminophen (Tylenol), 325 MG PO Q6HR Discontinued Reason: Pt stopped taking med Fluticasone Propionate* (Fluticasone Propionate*), 1 SPRAY NASAL DAILY, ( Reported) Discontinued Reason: Pt stopped taking med Lurasidone Hcl (Latuda), 20 MG PO DA, (Reported) Discontinued Reason: Pt stopped taking med Methocarbamol* (Robaxin*), 500 MG PO TID Discontinued Reason: Pt stopped taking med Metronidazole (Metronidazole), 1 APPLIC TOPIC TWICE A DAY Discontinued Reason: Pt stopped taking med Neomycin/Polymyxin B Sulf/Hc (Webtwlxv-Fipm-Xb Eye Drops), 7.5 ML OP, (Reported) Discontinued Reason: Pt stopped taking med Prednisone* (Prednisone*), 1.5 TAB ORAL DAILY Discontinued Reason: Pt stopped taking med Pregabalin (Lyrica), 75 MG ORAL THREE TIMES A DAY, (Reported) Discontinued Reason: Pt stopped taking med Tizanidine Hcl* (Zanaflex*), 4 MG ORAL DA, (Reported) Discontinued Reason: Pt stopped taking med Tobramycin Sulf (Tobramycin), 1 DROP BOTH EYES Q4H, (Reported) Discontinued Reason: Pt stopped taking med Valsartan/Hydrochlorothiazide 160-25MG (Valsartan-Hctz 160-25 Mg Tab), 1 TAB ORAL DAILY, (Reported) Discontinued Reason: Pt stopped taking med Patient History History Provided By: Patient, Medical Record, PMD Healthcare decision maker Resuscitation status Full Code Advanced Directive on File Past Medical/Surgical History Past Medical/Surgical History: (1) Cerebrovascular accident (CVA) (2) Intractable abdominal pain (3) ACS (acute coronary syndrome) (4) Vomiting (5) Headache, post-traumatic (6) Recurrent falls (7) Obesity (8) Headache (9) Urinary tract infection (10) Episode of generalized weakness (11) Depression (12) Hypercholesterolemia (13) HTN (hypertension) Review of Systems Psychiatric: Reports: prior hx, anxiety, depressed feelings Physical Exam General Appearance: no apparent distress, alert Neurologic: oriented x 3, responsive, depressed affect Last 24 Hour Vital Signs Date Time Temp Pulse Resp B/P (MAP) Pulse Ox O2 Delivery O2 Flow Rate FiO2 01/12/18 20:00 98.3 57 18 155/88 (110) 99 01/12/18 15:25 97.9 52 19 160/76 (104) 100 01/12/18 11:23 97.6 57 20 153/78 (103) 98 01/12/18 09:43 152/82 01/12/18 09:00 Room Air 01/12/18 08:37 97.8 58 19 146/77 (100) 99 01/12/18 04:00 97.5 60 18 104/60 (75) 98 01/12/18 00:00 97.0 65 17 115/59 (77) 99 01/11/18 21:00 Room Air Intake and Output 01/11/18 01/12/18 19:00 07:00 Intake Total 200 ml 840 ml Balance 200 ml 840 ml Intake Oral 0 ml 240 ml IV Total 200 ml 600 ml # Voids 2 Laboratory Tests Test 01/12/18 05:10 White Blood Count 8.2 K/UL (4.8-10.8) Red Blood Count 4.00 M/UL (4.20-5.40) L Hemoglobin 12.4 G/DL (12.0-16.0) Hematocrit 37.1 % (37.0-47.0) Mean Corpuscular Volume 93 FL (80-99) Mean Corpuscular Hemoglobin 31.0 PG (27.0-31.0) Mean Corpuscular Hemoglobin Concent 33.4 G/DL (32.0-36.0) Red Cell Distribution Width 11.6 % (11.6-14.8) Platelet Count 282 K/UL (150-450) Mean Platelet Volume 7.2 FL (6.5-10.1) Neutrophils (%) (Auto) 41.9 % (45.0-75.0) L Lymphocytes (%) (Auto) 50.9 % (20.0-45.0) H Monocytes (%) (Auto) 6.2 % (1.0-10.0) Eosinophils (%) (Auto) 0.4 % (0.0-3.0) Basophils (%) (Auto) 0.7 % (0.0-2.0) Prothrombin Time 10.6 SEC (9.30-11.50) Prothromb Time International Ratio 1.0 (0.9-1.1) Activated Partial Thromboplast Time 28 SEC (23-33) Sodium Level 142 MMOL/L (136-145) Potassium Level 3.9 MMOL/L (3.5-5.1) Chloride Level 107 MMOL/L (98-107) Carbon Dioxide Level 27 MMOL/L (21-32) Anion Gap 8 mmol/L (5-15) Blood Urea Nitrogen 16 mg/dL (7-18) Creatinine 1.0 MG/DL (0.55-1.30) Estimat Glomerular Filtration Rate > 60 mL/min (>60) Glucose Level 97 MG/DL (74-106) Calcium Level 8.3 MG/DL (8.5-10.1) L Total Bilirubin 0.2 MG/DL (0.2-1.0) Aspartate Amino Transf (AST/SGOT) 22 U/L (15-37) Alanine Aminotransferase (ALT/SGPT) 36 U/L (12-78) Alkaline Phosphatase 86 U/L (46-116) Ammonia < 10 umol/L (11-32) L Total Protein 6.3 G/DL (6.4-8.2) L Albumin 2.9 G/DL (3.4-5.0) L Globulin 3.4 g/dL Albumin/Globulin Ratio 0.9 (1.0-2.7) L Triglycerides Level 106 MG/DL (30-150) Cholesterol Level 162 MG/DL (< 200) LDL Cholesterol 93 mg/dL (<100) HDL Cholesterol 48 MG/DL (40-60) Cholesterol/HDL Ratio 3.4 (3.3-4.4) Thyroid Stimulating Hormone (TSH) 2.271 uiU/mL (0.358-3.740) Height (Feet): 5 Height (Inches): 5.00 Weight (Pounds): 204 Medications Current Medications Medications (Trade) Dose Ordered Sig/Ricci Route PRN Reason Start Time Stop Time Status Last Admin Dose Admin Acetaminophen (Tylenol) 650 mg Q4H PRN ORAL T>100.5 01/11/18 12:45 02/10/18 12:44 Acetaminophen/ Hydrocodone Bitart ([place] 5/325) 1 tab Q6H PRN ORAL Moderate Pain (Pain Scale 4-6) 01/11/18 12:45 01/18/18 12:44 Al Hydroxide/Mg Hydroxide (Mylanta II) 30 ml Q6H PRN ORAL dyspepsia 01/11/18 12:45 02/10/18 12:44 Albuterol/ Ipratropium (Albuterol/ Ipratropium) 3 ml Q4H PRN HHN Shortness of Breath 01/11/18 12:45 01/16/18 12:44 Amoxicillin/ Clavulanate Potassium (Augmentin) 875 mg EVERY 12 HOURS ORAL 01/12/18 21:00 01/19/18 20:59 Clonidine HCl (Catapres Tab) 0.1 mg Q4H PRN ORAL SBP > 160mmHg 01/11/18 12:45 02/10/18 12:44 Dextrose (Dextrose 50%) 25 ml Q30M PRN IV Hypoglycemia 01/11/18 12:45 02/10/18 12:44 Dextrose (Dextrose 50%) 50 ml Q30M PRN IV Hypoglycemia 01/11/18 12:45 02/10/18 12:44 Dextrose/Sodium Chloride 1,000 ml @ 50 mls/hr Q20H IV 01/11/18 13:00 02/10/18 12:59 01/12/18 09:54 Heparin Sodium (Porcine) (Heparin 5000 units/ml) 5,000 units EVERY 12 HOURS SUBQ 01/11/18 21:00 02/10/18 20:59 01/12/18 09:57 Irbesartan (Avapro) 75 mg DAILY ORAL 01/12/18 09:00 02/11/18 08:59 01/12/18 09:43 Lorazepam (Ativan 2mg/ml 1ml) 0.5 mg Q4H PRN IV For Anxiety 01/11/18 12:45 01/18/18 12:44 Morphine Sulfate (Morphine Sulfate) 1 mg Q4H PRN IVP Severe Pain (Pain Scale 7-10) 01/11/18 12:45 01/18/18 12:44 01/12/18 20:02 Neomycin/ Polymyxin/ Hydrocortisone (Cortisporin 1% Otic Soln) 4 drop FOUR TIMES A DAY RIGHT EAR 01/12/18 18:00 01/19/18 17:59 Nitroglycerin (Ntg) 0.4 mg Q5M X 3 DOSES PRN SL Prn Chest Pain 01/11/18 12:45 02/10/18 12:44 Ondansetron HCl (Zofran) 4 mg Q6H PRN IVP Nausea & Vomiting 01/11/18 12:45 02/10/18 12:44 01/11/18 13:37 Polyethylene Glycol (Miralax) 17 gm HSPRN PRN ORAL Constipation 01/11/18 21:00 02/10/18 20:59 01/12/18 20:01 Promethazine HCl/ Codeine (Phenergan with Codeine) 5 ml Q4H PRN ORAL For Cough 01/11/18 12:45 02/10/18 12:44 Temazepam (Restoril) 15 mg HSPRN PRN ORAL Insomnia 01/11/18 21:00 01/18/18 20:59 01/11/18 22:05 Tizanidine HCl (Zanaflex) 4 mg DAILYPRN PRN ORAL Muscle spasms 01/11/18 13:00 02/10/18 12:59 Assessment/Plan Problem List: (1) Depression ICD Codes: F32.9 - Major depressive disorder, single episode, unspecified SNOMED: [id number] Assessment/Plan zoloft 50mg qam ativan prn provided ro/Sharath Pearce MD Jan 12, 2018 20:54
--- NOTE | 2018-01-12 20:58 | General Progress Note ---
Assessment/Plan Problem List: (1) Depression ICD Codes: F32.9 - Major depressive disorder, single episode, unspecified SNOMED: 17000470 Assessment/Plan zoloft 50mg qam ativan prn provided ro/st the pts ct and mri of head normal Subjective Date patient seen: Jan 12, 2018 Neurologic/Psychiatric: Reports: anxiety, depressed, emotional problems Allergies: Coded Allergies: NAPROXEN (Verified Allergy, Severe, 11/09/16) SKIN RASH,ITCHING ESCITALOPRAM (Verified Allergy, Intermediate, hives, 11/09/16) Objective Last 24 Hour Vital Signs Date Time Temp Pulse Resp B/P (MAP) Pulse Ox O2 Delivery O2 Flow Rate FiO2 01/12/18 20:00 98.3 57 18 155/88 (110) 99 01/12/18 15:25 97.9 52 19 160/76 (104) 100 01/12/18 11:23 97.6 57 20 153/78 (103) 98 01/12/18 09:43 152/82 01/12/18 09:00 Room Air 01/12/18 08:37 97.8 58 19 146/77 (100) 99 01/12/18 04:00 97.5 60 18 104/60 (75) 98 01/12/18 00:00 97.0 65 17 115/59 (77) 99 01/11/18 21:00 Room Air Intake and Output 01/11/18 01/12/18 19:00 07:00 Intake Total 200 ml 840 ml Balance 200 ml 840 ml Intake Oral 0 ml 240 ml IV Total 200 ml 600 ml # Voids 2 Laboratory Tests 01/12/18 05:10: White Blood Count 8.2, Red Blood Count 4.00L, Hemoglobin 12.4, Hematocrit 37.1, Mean Corpuscular Volume 93, Mean Corpuscular Hemoglobin 31.0, Mean Corpuscular Hemoglobin Concent 33.4, Red Cell Distribution Width 11.6, Platelet Count 282, Mean Platelet Volume 7.2, Neutrophils (%) (Auto) 41.9L, Lymphocytes (%) (Auto) 50.9H, Monocytes (%) (Auto) 6.2, Eosinophils (%) (Auto) 0.4, Basophils (%) (Auto ) 0.7, Prothrombin Time 10.6, Prothromb Time International Ratio 1.0, Activated Partial Thromboplast Time 28, Sodium Level 142, Potassium Level 3.9, Chloride Level 107, Carbon Dioxide Level 27, Anion Gap 8, Blood Urea Nitrogen 16, Creatinine 1.0, Estimat Glomerular Filtration Rate > 60, Glucose Level 97, Calcium Level 8.3L, Total Bilirubin 0.2, Aspartate Amino Transf (AST/SGOT) 22, Alanine Aminotransferase (ALT/SGPT) 36, Alkaline Phosphatase 86, Ammonia < 10L, Total Protein 6.3L, Albumin 2.9L, Globulin 3.4, Albumin/Globulin Ratio 0.9L, Triglycerides Level 106, Cholesterol Level 162, LDL Cholesterol 93, HDL Cholesterol 48, Cholesterol/HDL Ratio 3.4, Thyroid Stimulating Hormone (TSH) 2.271 Height (Feet): 5 Height (Inches): 5.00 Weight (Pounds): 204 General Appearance: no apparent distress, alert Neurologic: oriented x 3, responsive, depressed affect Sharath Solano MD Jan 12, 2018 20:58
[2018-01-12] MEDS: Augmentin 875mg Tab ORAL SCH (21:01)
--- NOTE | 2018-01-12 21:45 | History and Physical Report ---
DATE OF ADMISSION: 01/11/2018 CHIEF COMPLAINT: The patient is a 62-year-old female, who presents with chief complaint of right-sided headache. HISTORY OF PRESENT ILLNESS: It began two weeks ago. The patient had a cold. The patient was given antibiotics for 10 days. The patient states on Tuesday she went to water aerobics. The patient experienced a sharp pain behind her right ear. The patient also heard buzzing. The patient could hear "pulse in my right ear." The patient presented to [facility] on Tuesday. The patient was discharged home. The patient returned again yesterday, 01/11/2018. The patient is admitted for right-sided headache to rule out cerebrovascular accident. REVIEW OF SYSTEMS: CONSTITUTIONAL: The patient denies weight loss or gain. The patient denies fevers or chills. HEENT: The patient denies ear or throat pain. The patient complains of headache as above. CHEST: The patient denies wheeze or shortness of breath. CARDIOVASCULAR: The patient denies palpitations or chest pain. ABDOMEN: The patient denies nausea, vomiting, diarrhea, or constipation. GENITOURINARY: The patient denies dysuria or increased frequency of urination. NEUROMUSCULAR: The patient denies seizures or generalized weakness. PAST MEDICAL HISTORY: Significant for: 1. Hypertension. 2. History of previous transient ischemic attack. PAST SURGICAL HISTORY: Significant for: 1. Cholecystectomy. 2. Total abdominal hysterectomy. 3. Left knee surgery. 4. Bilateral cataracts. CURRENT MEDICATIONS: 1. Enteric-coated aspirin 81 mg one tablet p.o. daily. 2. Clonidine 0.2 mg p.o. daily. 3. Avapro 75 mg p.o. daily. 4. Lovastatin 10 mg p.o. nightly. 5. Omeprazole 20 mg p.o. daily. 6. Zoloft 50 mg p.o. daily. ALLERGIES: To naproxen. SOCIAL HISTORY: The patient is single and lives alone. The patient denies tobacco use, having quit three years previously. The patient admits to rare alcohol use. PHYSICAL EXAMINATION: VITAL SIGNS: Temperature 97.5, respirations 18, pulse 60, and blood pressure 104/60. GENERAL: The patient is a well-developed and well-nourished slightly obese female, in no apparent distress. HEENT: Eyes, pupils are equal and responsive to light and accommodation. Extraocular movements are intact. NECK: Supple without lymphadenopathy. CHEST: Lungs are clear to auscultation bilaterally without wheezes or rales. CARDIOVASCULAR: Regular rate. S1-S2 are normal without murmurs, rubs, or gallops. ABDOMEN: Soft, nontender, and nondistended. Positive bowel sounds. No evidence of hepatosplenomegaly. Currently, no rebound or guarding noted. EXTREMITIES: Negative for clubbing, cyanosis, or edema. RECTAL/GENITAL: Refused. NEUROLOGIC: Cranial nerves II through XII are grossly intact without focal deficits. Motor strength is 5/5 bilaterally. Deep tendon reflexes are 2+ plantar. LABORATORY STUDIES: WBC 13.2, hemoglobin 14.0, hematocrit 43.1, and platelets 335,000. Sodium 145, potassium 3.6, chloride 108, CO2 20, BUN 16, and creatinine 1.0. Glucose 91. Troponin 0.0. CT scan of the brain was reported as no acute disease. ASSESSMENT: This is a 62-year-old female with: 1. Headache. 2. Vertigo. 3. Hypertension. 4. Hypercholesterolemia. TREATMENT: 1. Headache/vertigo. An MRI of the brain is pending. Differential includes acute cerebrovascular accident versus acute right otitis media. We will follow recommendations. 2. Hypertension. Continue Avapro as above. 3. Hypercholesterolemia. Continue lovastatin as above. Stefano Watt M.D. DR: JOHN JOB#: [id number] CC:
[2018-01-13] VITALS: BP 141/73
[2018-01-13] MEDS: Morphine Sulfate 2mg/ml Inj IVP PRN ×2 (01:35→08:59)
[2018-01-13 04:00] VITALS: BP 160/80
[2018-01-13] MEDS: D5 1/2NS 1,000 ML IV SCH (05:27)
[2018-01-13 08:00] VITALS: BP 133/81
[2018-01-13] MEDS: Augmentin 875mg Tab ORAL SCH (08:57)
[2018-01-13] MEDS: Heparin 5000 units/ml inj SUBQ SCH (09:00)
[2018-01-13] MEDS ORDERED: Sertraline 50mg tab ORAL SCH (09:00)
[2018-01-13 09:29] LABS: BASOPHILS % (AUTO) 1.1 % (0.0-2.0); EOSINOPHILS % (AUTO) 5.1 % (0.0-3.0); HEMATOCRIT 40.5 % (37.0-47.0); HEMOGLOBIN 13.8 G/DL (12.0-16.0); MEAN CORPUSCULAR VOLUME 92 FL (80-99); NEUTROPHILS % (AUTO) 46.9 % (45.0-75.0); PLATELET COUNT 274 K/UL (150-450); RED BLOOD COUNT 4.38 M/UL (4.20-5.40); RED CELL DISTRIBUTION WIDTH 11.6 % (11.6-14.8); WHITE BLOOD COUNT 7.3 K/UL (4.8-10.8)
[2018-01-13 09:50] LABS: ANION GAP 7 mmol/L (5-15); BLOOD UREA NITROGEN 12 mg/dL (7-18); CALCIUM 8.7 MG/DL (8.5-10.1); CARBON DIOXIDE 28 MMOL/L (21-32); CHLORIDE 105 MMOL/L (98-107); CREATININE 0.9 MG/DL (0.55-1.30); POTASSIUM 3.7 MMOL/L (3.5-5.1); SODIUM 140 MMOL/L (136-145)
[2018-01-13 12:03] VITALS: BP 153/80
--- NOTE | 2018-01-13 14:31 | Pulmonology Progress Note ---
Assessment/Plan Problems: (1) Cerebrovascular accident (CVA) (2) Recurrent falls (3) Obesity (4) Headache (5) HTN (hypertension) (6) Depression (7) Episode of generalized weakness Assessment/Plan echo reviewed, EF wnl monitor BP MRI of brain reviewed, negative symptomatic treatment pt./ot note reviewed dc home with HH/ Subjective ROS Limited/Unobtainable: No Constitutional: Reports: no symptoms HEENT: Repors: no symptoms Respiratory: Reports: no symptoms Allergies: Coded Allergies: NAPROXEN (Verified Allergy, Severe, 11/09/16) SKIN RASH,ITCHING ESCITALOPRAM (Verified Allergy, Intermediate, hives, 11/09/16) Objective Last 24 Hour Vital Signs Date Time Temp Pulse Resp B/P (MAP) Pulse Ox O2 Delivery O2 Flow Rate FiO2 01/13/18 12:03 98.1 60 18 153/80 (104) 100 01/13/18 09:00 Room Air 01/13/18 08:57 133/81 01/13/18 08:00 98.1 60 18 133/81 (98) 100 01/13/18 05:27 160/80 01/13/18 04:00 99.0 55 18 160/80 (106) 100 01/13/18 00:00 97.3 60 18 141/73 (95) 100 01/12/18 21:00 Room Air 01/12/18 20:00 98.3 57 18 155/88 (110) 99 01/12/18 15:25 97.9 52 19 160/76 (104) 100 Intake and Output 01/12/18 01/13/18 19:00 07:00 Intake Total 1150 ml 1175 ml Balance 1150 ml 1175 ml Intake Oral 600 ml 600 ml IV Total 550 ml 575 ml # Voids 4 5 General Appearance: WD/WN HEENT: normocephalic, atraumatic Respiratory/Chest: chest wall non-tender, lungs clear Abdomen: normal bowel sounds, soft, non tender Genitourinary: normal external genitalia Extremities: no clubbing Skin: no rash Microbiology Date/Time Source Procedure Growth Status 01/11/18 12:35 Blood Blood Culture - Preliminary NO GROWTH AFTER 24 HOURS Resulted 01/11/18 12:25 Blood Blood Culture - Preliminary NO GROWTH AFTER 24 HOURS Resulted 01/11/18 19:00 Urine,Clean Catch Urine Culture - Preliminary Mixed Gram Positive Organism Resulted Laboratory Tests 01/13/18 09:00: White Blood Count 7.3, Red Blood Count 4.38, Hemoglobin 13.8, Hematocrit 40.5, Mean Corpuscular Volume 92, Mean Corpuscular Hemoglobin 31.5H, Mean Corpuscular Hemoglobin Concent 34.1, Red Cell Distribution Width 11.6, Platelet Count 274, Mean Platelet Volume 6.8, Neutrophils (%) (Auto) 46.9, Lymphocytes (%) (Auto) 42.0, Monocytes (%) (Auto) 5.0, Eosinophils (%) (Auto) 5.1H, Basophils (%) (Auto ) 1.1, Sodium Level 140, Potassium Level 3.7, Chloride Level 105, Carbon Dioxide Level 28, Anion Gap 7, Blood Urea Nitrogen 12, Creatinine 0.9, Estimat Glomerular Filtration Rate > 60, Glucose Level 129H, Calcium Level 8.7 Current Medications Medications (Trade) Dose Ordered Sig/Ricci Route PRN Reason Start Time Stop Time Status Last Admin Dose Admin Acetaminophen (Tylenol) 650 mg Q4H PRN ORAL T>100.5 01/11/18 12:45 02/10/18 12:44 Acetaminophen/ Hydrocodone Bitart (Nixon 5/325) 1 tab Q6H PRN ORAL Moderate Pain (Pain Scale 4-6) 01/11/18 12:45 01/18/18 12:44 Al Hydroxide/Mg Hydroxide (Mylanta II) 30 ml Q6H PRN ORAL dyspepsia 01/11/18 12:45 02/10/18 12:44 Albuterol/ Ipratropium (Albuterol/ Ipratropium) 3 ml Q4H PRN HHN Shortness of Breath 01/11/18 12:45 01/16/18 12:44 Amoxicillin/ Clavulanate Potassium (Augmentin) 875 mg EVERY 12 HOURS ORAL 01/12/18 21:00 01/19/18 20:59 01/13/18 08:57 Clonidine HCl (Catapres Tab) 0.1 mg Q4H PRN ORAL SBP > 160mmHg 01/11/18 12:45 02/10/18 12:44 01/13/18 05:27 Dextrose (Dextrose 50%) 25 ml Q30M PRN IV Hypoglycemia 01/11/18 12:45 02/10/18 12:44 Dextrose (Dextrose 50%) 50 ml Q30M PRN IV Hypoglycemia 01/11/18 12:45 02/10/18 12:44 Dextrose/Sodium Chloride 1,000 ml @ 50 mls/hr Q20H IV 01/11/18 13:00 02/10/18 12:59 01/13/18 05:27 Heparin Sodium (Porcine) (Heparin 5000 units/ml) 5,000 units EVERY 12 HOURS SUBQ 01/11/18 21:00 02/10/18 20:59 01/13/18 09:00 Irbesartan (Avapro) 75 mg DAILY ORAL 01/12/18 09:00 02/11/18 08:59 01/13/18 08:57 Lorazepam (Ativan 2mg/ml 1ml) 0.5 mg Q4H PRN IV For Anxiety 01/11/18 12:45 01/18/18 12:44 Morphine Sulfate (Morphine Sulfate) 1 mg Q4H PRN IVP Severe Pain (Pain Scale 7-10) 01/11/18 12:45 01/18/18 12:44 01/13/18 08:59 Neomycin/ Polymyxin/ Hydrocortisone (Cortisporin 1% Otic Soln) 4 drop FOUR TIMES A DAY RIGHT EAR 01/12/18 18:00 01/19/18 17:59 01/13/18 13:03 Nitroglycerin (Ntg) 0.4 mg Q5M X 3 DOSES PRN SL Prn Chest Pain 01/11/18 12:45 02/10/18 12:44 Ondansetron HCl (Zofran) 4 mg Q6H PRN IVP Nausea & Vomiting 01/11/18 12:45 02/10/18 12:44 01/11/18 13:37 Polyethylene Glycol (Miralax) 17 gm HSPRN PRN ORAL Constipation 01/11/18 21:00 02/10/18 20:59 01/12/18 20:01 Promethazine HCl/ Codeine (Phenergan with Codeine) 5 ml Q4H PRN ORAL For Cough 01/11/18 12:45 02/10/18 12:44 Sertraline HCl (Zoloft) 50 mg DAILY ORAL 01/13/18 09:00 02/12/18 08:59 01/13/18 08:57 Temazepam (Restoril) 15 mg HSPRN PRN ORAL Insomnia 01/11/18 21:00 01/18/18 20:59 01/12/18 21:01 Tizanidine HCl (Zanaflex) 4 mg DAILYPRN PRN ORAL Muscle spasms 01/11/18 13:00 02/10/18 12:59 Fabricio Espinoza MD Jan 13, 2018 14:31
--- NOTE | 2018-01-13 15:57 | Discharge Summary ---
Discharge Summary Hospital Course Date of Admission Jan 11, 2018 at 12:58 Date of Discharge Jan 13, 2018 at 15:25 Admitting Diagnosis Generalized weakness, eval CVA HPI Mary Mckinley is a 62 year old female who was admitted on Jan 11, 2018 at 12:58 for Generalized Weakness, Cerebrovascular Accident Hospital Course Last 24 Hour Vital Signs Date Time Temp Pulse Resp B/P (MAP) Pulse Ox O2 Delivery O2 Flow Rate FiO2 01/13/18 12:03 98.1 60 18 153/80 (104) 100 01/13/18 09:00 Room Air 01/13/18 08:57 133/81 01/13/18 08:00 98.1 60 18 133/81 (98) 100 01/13/18 05:27 160/80 01/13/18 04:00 99.0 55 18 160/80 (106) 100 01/13/18 00:00 97.3 60 18 141/73 (95) 100 01/12/18 21:00 Room Air 01/12/18 20:00 98.3 57 18 155/88 (110) 99 Physical Exam General: No acute distress, awake and alert HEENT: NCAT, sclera anicteric, PERRL, EOMI. Neck: Supple, no significant jugular venous distention, Lungs: Good inspiratory effort, no accessory muscle use, clear to auscultation bilaterally, no Wheeze or Rales. Heart: Regular rate and rhythm, normal S1/S2, no murmur Abdomen: soft, nontender, nondistended. Normoactive bowel sounds, obesity. / Rectal: Refused and deferred. Extremities: No Cyanosis , clubbing or edema. Neuro: A&O x 3, Able to move all extremities Skin: warm, no rashes or lesions Psych: Normal mood and affect Discharge Discharge Disposition Patient was discharged to Home () Sukh Castañeda MD Jan 13, 2018 15:57
--- NOTE | 2018-01-13 16:14 | Cardiology Report ---
APPROVED REPORT EKG Measurement Heart [id number] [id number] Sinus bradycardia Cannot rule out Anterior infarct, age undetermined Abnormal ECG
--- NOTE | 2018-01-13 16:16 | Cardiology Report ---
APPROVED REPORT EKG Measurement Heart [id number] IN 196P43 [id number] Sinus bradycardia Cannot rule out Anterior infarct, age undetermined Abnormal ECG
--- NOTE | 2018-01-14 00:30 | Discharge Summary ---
DATE OF ADMISSION: 01/11/2018 DATE OF DISCHARGE: 01/13/2018 HISTORY AND HOSPITAL COURSE: This is a 62-year-old female with past medical history significant for hypertension and prior history of TIA who was presented to the hospital complaining about weakness and right-sided headache. Shortly after initial evaluation, the patient was admitted to the hospital with a headache and possible vertigo. Throughout the hospital course, the patient had CT scan of the head was unremarkable and MRI of the brain showed no acute intracranial finding mild atrophy and evidence of chronic small vessel disease involving the white matter tract. The patient had an echocardiogram noted to have the ejection fraction of 55% with a borderline left ventricular hypertrophy. Throughout the hospital course, the patient's IVC dilated at 2.1 cm, physiological collapse. The patient's status gradually improved and subsequently was discharged home today to be followed by as outpatient with my office. FINAL DIAGNOSES: 1. Headache, less likely acute CVA, most likely TIA with right-sided weakness. 2. Morbid obesity. 3. Hypertension. 4. Depression. MEDICATION ON DISCHARGE: Continue discharge medication list. ACTIVITY: As tolerated. DIET: Cardiac diet. FOLLOWUP: The patient was advised to follow up in my office within one week. The patient will discharge home with the home health. Sukh Castañeda M.D. DR: ALL JOB#: [id number] CC:
--- NOTE | 2018-01-16 12:20 | Diagnostic Imaging Report ---
APPROVED REPORT CPT Code: 98734 Present Symptoms Comments: BILATERAL LEGS PAIN. BILATERAL: Imaging reveals a patent deep venous system bilaterally. There is no evidence of thrombus within the femoral, popliteal or tibial segments. The greater saphenous veins are also within normal limits. Doppler indicates normal spontaneous flow within these segments.
== END 2018-01-13 15:25 | disposition home or self-care (01) | DRG 69 ==
LOC: EMR 11:56 → 4E 12:58 → EDBEDREQ 13:05
DX: G45.9 Transient cerebral ischemic attack, unspecified (principal); G81.91 Hemiplegia, unspecified affecting right dominant side; E66.01 Morbid (severe) obesity due to excess calories; F32.9 Major depressive disorder, single episode, unspecified; Z88.6 Allergy status to analgesic agent; Z88.8 Allergy status to other drugs, medicaments and biological substances; I10 Essential (primary) hypertension; E78.00 Pure hypercholesterolemia, unspecified; Z90.49 Acquired absence of other specified parts of digestive tract; Z87.891 Personal history of nicotine dependence
CPT/HCPCS: 36415; 70450; 70551; 71045; 80048; 80053; 80061; 81001; 82140; 82550; 82553; 83605; 84443; 84484; 85025; 85610; 85730; 87040; 87086; 90686; 92610; 93005; 93306; 93880; 93970; 96374; 96375; 99285; J2405

== ENCOUNTER 2018-05-02 10:25 | Emergency (ER) | payer MEDICARE, OTHER ==
[~2018-05-02] VITALS: Ht 152.4 cm; Wt 86.2 kg
[~2018-05-02 10:25] MED LIST changes: +AVAPRO75 MG ORAL; +LYRICA100 MG ORAL; +SERTRALINE HCL50 MG ORAL
[2018-05-02 10:40] VITALS: BP 150/85
[2018-05-02] MEDS ORDERED: SOMA350 MG PO (10:43)
[2018-05-02] MEDS ORDERED: BACLOFEN10 MG ORAL (10:43)
[2018-05-02] MEDS ORDERED: ALBUTEROL SULF8.5 GM INH (10:57)
[2018-05-02] MEDS ORDERED: ZITHROMAX250 MG ORAL (10:57)
[2018-05-02] MEDS ORDERED: PROMETHAZINE-C118 M1 ORAL (10:57)
[2018-05-02 11:02] VITALS: BP 150/85
--- NOTE | 2018-05-02 11:07 | NUR ---
ED Nurse Note: Pt c/o cough and congestion x1 wk. Pt states that sdhe has also been having body ahes. Pt is AAox4 respirations are even and unlabored.
--- NOTE | 2018-05-02 16:43 | Emergency Room Report ---
History of Present Illness General Chief Complaint: Flu Like Symptoms Source: Patient, Medical Record Present Illness HPI Patient presents emergency department today complaining of 10 days of cough congestion sore throat. She denies any nausea or vomiting complains of subjective fevers and chills. States that symptoms are not improving with such can be further evaluated.. Symptoms noted to be severe. Patient denies any chest pain shortness breath.No other modifying factors. No other associated signs and symptoms. No other complaints were noted. Allergies: Coded Allergies: NAPROXEN (Verified Allergy, Severe, 11/09/16) SKIN RASH,ITCHING ESCITALOPRAM (Verified Allergy, Intermediate, hives, 11/09/16) Patient History Past Medical History: HTN, CAD, CVA/TIA Past Surgical History: none Pertinent Family History: none Social History: Denies: smoking, alcohol use, drug use Reviewed Nursing Documentation: PMH: Agreed; PSxH: Agreed Nursing Documentation-PMH Past Medical History: No History, Except For Hx Cardiac Problems: Yes Hx Hypertension: Yes Hx Cancer: No Hx Gastrointestinal Problems: Yes Hx Dialysis: No Hx Neurological Problems: Yes Hx Transient Ischemic Attacks: Yes Hx Memory Loss: Yes Hx Concentration Difficulty: Yes Hx Speech Problem: Yes - RESOLVED Hx Dizziness: Yes Hx Headaches: Yes Hx Numbness: Yes Hx Weakness: Yes Hx Fatigue: Yes Review of Systems All Other Systems: negative except mentioned in HPI Physical Exam Vital Signs Date Time Temp Pulse Resp B/P (MAP) Pulse Ox O2 Delivery O2 Flow Rate FiO2 05/02/18 10:40 98.2 60 18 150/85 98 Room Air Sp02 EP Interpretation: reviewed, normal General Appearance: normal inspection, well appearing, no apparent distress, alert Head: atraumatic Eyes: bilateral eye normal inspection ENT: normal ENT inspection, hearing grossly normal, normal voice Neck: normal inspection, full range of motion, supple, no bony tend Respiratory: normal inspection, lungs clear, normal breath sounds, no respiratory distress, no retraction, no wheezing Cardiovascular #1: regular rate, rhythm, no edema Gastrointestinal: normal inspection, normal bowel sounds, non tender, soft, no guarding, no hernia Genitourinary: no CVA tenderness Musculoskeletal: normal inspection, back normal, normal range of motion Neurologic: normal inspection, alert, responsive, speech normal Psychiatric: normal inspection, judgement/insight normal, mood/affect normal Skin: normal inspection, normal color, no rash Medical Decision Making Diagnostic Impression: Primary Impression: Cough Additional Impression: Fever ER Course Patient presents emergency department today complaint cough congestion and fever. Differential considerations: Pneumonia pharyngitis asthma COPD just name a few.Given the severity of the patient's presentation patient likely require antibiotics given the prolonged symptoms. Patient was started on Zithromax. Patient was given cough syrup and inhaler.Patient is advised to follow up with primary doctor in 2-3 days and return the emergency room for any worsening symptoms and as needed. Last Vital Signs Date Time Temp Pulse Resp B/P (MAP) Pulse Ox O2 Delivery O2 Flow Rate FiO2 05/02/18 11:06 98.2 80 18 150/85 98 Room Air Status: improved Disposition: HOME, SELF-CARE Condition: Stable Scripts Azithromycin* (ZITHROMAX*) 250 Mg Tablet 250 MG ORAL DAILY, #6 TAB 0 Refills Take two tables once daily for 1 day, then one tablet once daily for 4 days. Prov: Juaquin Chapa MD 05/02/18 Albuterol Sulfate* (ALBUTEROL SULFATE MDI*) 8.5 Gm Hfa.aer.ad 2 PUFF INH Q4H PRN for cough/wheezing, #1 EA 0 Refills Prov: Juaquin Chapa MD 05/02/18 Codeine/Promethazine Hcl* (PROMETHAZINE-CODEINE SYRUP*) 118 Ml Syrup 5 ML ORAL Q4H PRN for For Cough for 5 Days, ML 0 Refills Prov: Juaquin Chapa MD 05/02/18 Referrals: NON PHYSICIAN (PCP) Patient Instructions: Acute Bronchitis, [id number], Pharyngitis, [id number] Juaquin Chapa MD May 02, 2018 16:43
== END 2018-05-02 11:40 | disposition home or self-care (01) ==
LOC: EMR 11:00
DX: R05 Cough (principal); R50.9 Fever, unspecified; I10 Essential (primary) hypertension; I25.10 Atherosclerotic heart disease of native coronary artery without angina pectoris; Z88.8 Allergy status to other drugs, medicaments and biological substances; Z88.6 Allergy status to analgesic agent; Z86.73 Personal history of transient ischemic attack (TIA), and cerebral infarction without residual deficits
CPT/HCPCS: 99282

== ENCOUNTER 2018-05-28 12:22 | Emergency (ER) | payer MEDICARE, OTHER ==
[~2018-05-28] VITALS: Ht 152.4 cm; Wt 83.0 kg
[~2018-05-28 12:22] MED LIST changes: +BACLOFEN10 MG ORAL; +PROMETHAZINE-C118 M1 ORAL; +SOMA350 MG PO; +ZITHROMAX250 MG ORAL
--- NOTE | 2018-05-28 12:45 | NUR ---
ED Nurse Note: pt walked in c/o chronic back pain, states she is out of her medication and req refill for pain med, no recent injuries, pt cms intact BLE/BUE, ambulatory w/ steady gait, -n/v/d, vss, will cont monitor. noted tenderness on posterior back. no wound, no contusion, no redness noted.
[2018-05-28] MEDS ORDERED: HYDROcodone/Acetamin 5/325 tab ORAL ONE (13:00)
[2018-05-28] MEDS ORDERED: Methocarbamol 500mg tab ORAL ONE (13:00)
--- NOTE | 2018-05-28 13:01 | Emergency Room Report ---
History of Present Illness General Chief Complaint: Back Pain-No Injury Source: Patient Present Illness HPI 62-year-old female patient presents ER complaining of back pain for the past 3 days. Reports usually takes baclofen for relief of symptoms, states ran out of medication 3 days ago. Reports history of chronic back pain has been present for the past 6 months following a slip and fall accident last year. Reports had previously had an MRI done approximately 1 month ago. Denies acute injury or trauma since that time. Reports pain radiates down her legs, worse on left side. Denies bowel or bladder incontinence. Denies recent injury or trauma. Denies abdominal pain. Denies dysuria, hematuria. States that she has appointment scheduled with pain management for 11 June of this month to have a spinal epidural done. Reports is been taking Tylenol Motrin [id number] without relief of symptoms. Denies other aggravating or relieving factors. Denies history of cancer or drug use. Allergies: Coded Allergies: NAPROXEN (Verified Allergy, Severe, 11/09/16) SKIN RASH,ITCHING ESCITALOPRAM (Verified Allergy, Intermediate, hives, 11/09/16) Patient History Past Medical History: see triage record Last Menstrual Period: na Reviewed Nursing Documentation: PMH: Agreed; PSxH: Agreed Nursing Documentation-PMH Past Medical History: No History, Except For Hx Cardiac Problems: Yes Hx Hypertension: Yes Hx Cancer: No Hx Gastrointestinal Problems: Yes Hx Dialysis: No Hx Neurological Problems: Yes - back injury Hx Transient Ischemic Attacks: Yes Hx Memory Loss: Yes Hx Concentration Difficulty: Yes Hx Speech Problem: Yes - RESOLVED Hx Dizziness: Yes Hx Headaches: Yes Hx Numbness: Yes Hx Weakness: Yes Hx Fatigue: Yes Review of Systems All Other Systems: negative except mentioned in HPI Physical Exam Vital Signs Date Time Temp Pulse Resp B/P (MAP) Pulse Ox O2 Delivery O2 Flow Rate FiO2 05/28/18 12:28 98.1 61 20 146/82 98 Room Air Sp02 EP Interpretation: reviewed, normal General Appearance: well appearing, no apparent distress, alert, GCS 15, non- toxic Head: normocephalic, atraumatic Eyes: bilateral eye normal inspection, bilateral eye PERRL ENT: hearing grossly normal, normal pharynx, no angioedema, normal voice, uvula midline, moist mucus membranes Neck: full range of motion, no bony tend Respiratory: lungs clear, normal breath sounds, no rhonchi, no respiratory distress, no accessory muscle use, no wheezing, speaking full sentences Cardiovascular #1: regular rate, rhythm, no edema Gastrointestinal: non tender, soft, no mass, non-distended, no guarding, no rebound Genitourinary: no CVA tenderness Musculoskeletal: back normal, digits/nails normal, gait/station normal, normal range of motion, non-tender, no calf tenderness, Fadumo's Sign negative Neurologic: alert, oriented x3, responsive, motor strength/tone normal, SLR negative - right, sensory intact, other - SLR left positive Skin: no rash Medical Decision Making PA Attestation Dr. Sylvester is my supervising Physician whom patient management has been discussed with. Diagnostic Impression: Primary Impression: Acute exacerbation of chronic low back pain ER Course Pt presents to ED c/o back pain. DDX considered but are not limited to sprain, strain, cauda equine, epidural abscess, AAA, spinal cord compression, kidney stones, acute exacerbation of chronic pain. Low suspicion for cauda equina, no bowel or bladder incontinence or retention. No fever, nontoxic appearing, no radiation of pain, low suspicion for epidural mass. No abdominal pain, no blood pressure elevation, nontoxic appearing, low suspicion for AAA. VITAL SIGNS are WNL, patient is afebrile Ordered pain medication, imaging, labs. ER COURSE: [place], muscle relaxant and lidocaine patch provided in the ER. CURES reviewed. Denies acute injury or trauma, does not require imaging at this time. Urine unremarkable, patient asx, low suspicion for UTI, does not require antibiotic treatment at this time. Patient reports improvement of pain symptoms. Okay for outpatient follow-up and treatment. Followup with pain management and/or PT. Request referral from PCP. Followup wt PCP for further MRI and/or CT imaging as needed. ER precautions given. Patient cannot provide refills of opioid pain medications, refills would need to come from primary care provider. DISCHARGE: -Rx provided for Tylenol -Rx provided for Lidocaine patch -Rx provided for baclofen At this time pt. is stable for d/c to home. At this time patient is resting comfortably, in no acute distress, nontoxic appearing, smiling and talking without difficulty. Will provide printed patient care instructions, and any necessary prescriptions. Patient instructed to follow with primary care provider for further treatment and referral as needed. Care plan and follow up instructions have been discussed with the patient prior to discharge. Patient reports understanding and agreement to treatment plan. Patient questions asked and answered. ER precautions given, patient instructed to return to ER immediately for any new or worsening of symptoms. - Please note that this Emergency Department Report was dictated using [email or web address] operator technology software, occasionally this can lead to erroneous entry secondary to interpretation by the dictation equipment. Labs Test 05/28/18 13:18 Urine Color Pale yellow Urine Appearance Clear Urine pH 5 (4.5-8.0) Urine Specific [place] 1.020 (1.005-1.035) Urine Protein Negative (NEGATIVE) Urine Glucose (UA) Negative (NEGATIVE) Urine Ketones Negative (NEGATIVE) Urine Blood Negative (NEGATIVE) Urine Nitrite Negative (NEGATIVE) Urine Bilirubin Negative (NEGATIVE) Urine Urobilinogen Normal MG/DL (0.0-1.0) Urine Leukocyte Esterase 1+ (NEGATIVE) Urine RBC 0 /HPF (0 - 2) Urine WBC 0-2 /HPF (0 - 2) Urine Squamous Epithelial Cells Few /LPF (NONE/OCC) Urine Bacteria Few /HPF (NONE) Last Vital Signs Date Time Temp Pulse Resp B/P (MAP) Pulse Ox O2 Delivery O2 Flow Rate FiO2 05/28/18 12:28 98.1 61 20 146/82 98 Room Air Status: improved Disposition: HOME, SELF-CARE Condition: Stable Scripts Acetaminophen* (TYLENOL EXTRA STRENGTH*) 500 Mg Tablet 500 MG ORAL Q8H PRN for Prn Headache/Temp > 101, #30 TAB 0 Refills Prov: Ervin Oliveros 05/28/18 Lidocaine (Lidocaine) 1 Each Adh..patch 5 % TP DAILY for 7 Days, #7 PATCH Prov: Ervin Oliveros 05/28/18 Baclofen* (LIORESAL*) 20 Mg Tablet 20 MG ORAL THREE TIMES A DAY, #30 TAB Prov: Ervin [email or web address] 05/28/18 Patient Instructions: Back Pain, Adult, Chronic Pain Additional Instructions: Patient instructed to follow up with primary care provider 3-5 and discuss further referral and imaging need at that time. Patient instructed on rest, ice and heat. Do not take muscle relaxant prior to drinking, driving, or operating heavy machinery. Take medications as directed. Patient questions asked and answered. ER precautions given, patient instructed to return to ER immediately for any new or worsening of symptoms. [facility] [address] [facility], [address] [email or web address] Ervin Oliveros May 28, 2018 13:01
--- NOTE | 2018-05-28 13:22 | NUR ---
ED Nurse Note: URINE SPECIMEN SENT
[2018-05-28 13:35] VITALS: BP 140/86
[2018-05-28 13:52] LABS: APPEARANCE,URINE CLEAR; BILIRUBIN, URINE NEGATIVE (NEGATIVE); COLOR,URINE PALE YELLOW; GLUCOSE, URINE (UA) NEGATIVE (NEGATIVE); KETONES,URINE NEGATIVE (NEGATIVE); LEUKOCYTE ESTERASE ,URINE 1+ (NEGATIVE); NITRITE,URINE NEGATIVE (NEGATIVE); PH,URINE 5 (4.5-8.0); PROTEIN,URINE NEGATIVE (NEGATIVE); UROBILINOGEN,URINE NORMAL MG/DL (0.0-1.0)
[2018-05-28] MEDS ORDERED: BACLOFEN20 MG ORAL (14:29)
[2018-05-28] MEDS ORDERED: TYLENOL EXTRA500 MG ORAL (14:29)
[2018-05-28] MEDS ORDERED: LIDOCAINE700 M1 TP (14:29)
[2018-05-28 14:40] VITALS: BP 144/74
--- NOTE | 2018-05-28 14:40 | NUR ---
ED Nurse Note: pt cleared to be d/c per ER provider, pt discharge and aftercare instruction w/ prescription provided, pt advised to follow up with pcp or return to ed if sx worsen or new sx develop, pt education done via discussion and handout, pt verbalized understanding and agrees with plan, ambulatory w/ steady gait w/ cane, vss, resp even and unlabored on RA, all belongings left w/ pt, wristband removed.
== END 2018-05-28 14:40 | disposition home or self-care (01) ==
LOC: EMR 12:46
DX: G89.29 Other chronic pain (principal); M54.5 Low back pain; I10 Essential (primary) hypertension; Z86.73 Personal history of transient ischemic attack (TIA), and cerebral infarction without residual deficits
CPT/HCPCS: 81003; 99283

== ENCOUNTER 2018-11-28 18:35 | Emergency (ER) | payer MEDICARE, OTHER ==
[~2018-11-28] VITALS: Ht 154.9 cm; Wt 87.5 kg
[~2018-11-28 18:35] MED LIST changes: +BACLOFEN20 MG ORAL
[2018-11-28] MEDS ORDERED: Acetaminophen 500mg (ES) tab ORAL ONE (19:15)
--- NOTE | 2018-11-28 19:20 | NUR ---
ED Nurse Note: Recieved pt from home, here with c/o migraine headache since am, pt has no hx of migraines, rated at 10/10 and aching, also w/ photophobia, lights turned down, pt on cardiac monitoring, and medicated as ordered, will resume care as primary nurse and continue to closely monitor, pt denies cp, or sob.
--- NOTE | 2018-11-28 20:43 | Diagnostic Imaging Report ---
Indications: Headache Technique: Spiral acquisitions obtained through the brain. Angled axial and coronal 5 x 5 mm slices were reconstructed. Total dose length product 1379.6 mGycm. CTDI vol(s) 70.38 mGy. Dose reduction achieved using automated exposure control Comparison: None. Findings: No acute intracranial hemorrhage or edema, mass effect, nor midline shift. Ventricles and extra axial CSF spaces are within normal limits for age. Normal sotelo-white differentiation. Intact calvarium. Visualized orbits and sinuses are unremarkable. The mastoids are clear. Impression: Negative for acute intrarenal bleed or mass effect This agrees with the preliminary interpretation provided overnight by [facility]. The CT scanner at [facility] is accredited by the [employer] and the scans are performed using protocols designed to limit radiation exposure to as low as reasonably achievable to attain images of sufficient resolution adequate for diagnostic evaluation.
[2018-11-28 20:45] VITALS: BP 151/83
--- NOTE | 2018-11-28 20:45 | NUR ---
ED Nurse Note: Pt ambulated to bathroom, tolerated well, no dizziness or changes, pain decreased to 2/10, no cp, no sob, pt assisted back to bed, v/s isaac, at bedside preapring for discharge.
[2018-11-28] MEDS ORDERED: REGLAN10 MG ORAL (20:56)
[2018-11-28] MEDS ORDERED: TYLENOL EXTRA500 MG ORAL (20:56)
[2018-11-28 21:00] VITALS: BP 151/83
--- NOTE | 2018-11-28 21:00 | NUR ---
ER DISCHARGE NOTE: Patient is cleared to be discharged per ERMD, pt is aox4, on room air, with stable vital signs. pt was given dc and prescription instructions, pt was able to verbalize understanding, pt id band removed without complications. pt is able to ambulate with steady gait. pt took all belongings.
--- NOTE | 2018-11-29 22:12 | Emergency Room Report ---
History of Present Illness General Chief Complaint: Headache Source: Patient Present Illness HPI 63-year-old female presents ED for evaluation. Complaining of headache. Notes pain around her left eye throbbing, 8 out of 10, nonradiating. Started yesterday. Was being treated for an eye infection by her industrial methods consultant. Was placed on and a biotics which she states are helping her eye infection. Denies any discharge or redness to her eye anymore. Denies any photophobia or change in visual acuity. Denies any discharge at this time. Denies any neck stiffness. Denies fevers or chills. No other aggravating relieving factors. Denies any other associated symptoms Allergies: Coded Allergies: NAPROXEN (Verified Allergy, Severe, 11/09/16) SKIN RASH,ITCHING ESCITALOPRAM (Verified Allergy, Intermediate, hives, 11/09/16) Patient History Past Medical History: HTN, CVA/TIA Past Surgical History: none Pertinent Family History: none Social History: Denies: smoking, alcohol use, drug use Last Menstrual Period: na Now: No Immunizations: UTD Reviewed Nursing Documentation: PMH: Agreed; PSxH: Agreed Nursing Documentation-PMH Past Medical History: No History, Except For Hx Cardiac Problems: Yes Hx Hypertension: Yes Hx Cancer: No Hx Gastrointestinal Problems: Yes Hx Dialysis: No Hx Neurological Problems: Yes - back injury Hx Transient Ischemic Attacks: Yes Hx Memory Loss: Yes Hx Concentration Difficulty: Yes Hx Speech Problem: Yes - RESOLVED Hx Dizziness: Yes Hx Headaches: Yes Hx Numbness: Yes Hx Weakness: Yes Hx Fatigue: Yes Review of Systems All Other Systems: negative except mentioned in HPI Physical Exam Vital Signs Date Time Temp Pulse Resp B/P (MAP) Pulse Ox O2 Delivery O2 Flow Rate FiO2 11/28/18 18:44 98.6 83 18 164/87 (112) 97 Room Air Sp02 EP Interpretation: reviewed, normal General Appearance: no apparent distress, alert, GCS 15, non-toxic Head: normocephalic, atraumatic Eyes: bilateral eye normal inspection, bilateral eye PERRL, bilateral eye EOMI ENT: normal ENT inspection, hearing grossly normal, no angioedema Neck: full range of motion, supple, no meningismus, supple/symm/no masses Respiratory: normal inspection Cardiovascular #1: normal inspection Gastrointestinal: normal inspection Rectal: deferred Genitourinary: no CVA tenderness Musculoskeletal: normal inspection Neurologic: alert, oriented x3, responsive, motor strength/tone normal, sensory intact, speech normal Psychiatric: normal inspection Skin: no rash Lymphatic: normal inspection Medical Decision Making Diagnostic Impression: Primary Impression: Headache Qualified Codes: R51 - Headache ER Course Hospital Course 63 yo F presents with headache. currently being treated for eye infection. Differential diagnoses include: tension headache, migraine, dehydration, intracranial bleed Clinical course Patient placed on stretcher. After initial history and physical I ordered CT head, tylenol reglan CT Head unremarkable. Upon reassessment patient states pain has improved. Patient feels better wishes to go home. Given the lack of fever, nuchal rigidity or neurological findings my suspicion for intracranial pathology is low patient be safely discharged to home. safe for discharge for close outpatient follow-up. States she has a PMD i. I feel this is a highly complex case requiring extensive working including EKG/Rhythm strip, Xray/CT/US, Blood/urine lab work, repeat exams while in ED, and administration of strong opiates/narcotics for pain control, admission to hospital or close patient follow up. Diagnosis - headache stable and discharged to home. f/up with PMD. return to ED if symptoms recur/ worsen. CT/MRI/US Diagnostic Results CT/MRI/US Diagnostic Results : Imaging Test Ordered: CT Head Impression no acute process Last Vital Signs Date Time Temp Pulse Resp B/P (MAP) Pulse Ox O2 Delivery O2 Flow Rate FiO2 11/28/18 21:00 98.6 78 16 151/83 99 Room Air Status: improved Disposition: HOME, SELF-CARE Condition: Stable Scripts Metoclopramide Hcl* (REGLAN*) 10 Mg Tablet 10 MG ORAL THREE TIMES A DAY, #15 TAB Prov: Tino Tim MD 11/28/18 Acetaminophen* (TYLENOL EXTRA STRENGTH*) 500 Mg Tablet 500 MG ORAL Q8H PRN for Prn Headache/Temp > 101, #30 TAB 0 Refills Prov: Tino Tim MD 11/28/18 Patient Instructions: General Headache Without Cause Tino Tim MD Nov 29, 2018 22:12
== END 2018-11-28 21:00 | disposition home or self-care (01) ==
LOC: EMR 19:25
DX: R51 Headache (principal); I10 Essential (primary) hypertension; Z86.73 Personal history of transient ischemic attack (TIA), and cerebral infarction without residual deficits; Z88.8 Allergy status to other drugs, medicaments and biological substances
CPT/HCPCS: 70450; 99284

== ENCOUNTER 2019-01-18 10:18 | Emergency (ER) | payer MEDICARE, OTHER ==
[~2019-01-18] VITALS: Ht 154.9 cm; Wt 84.4 kg
[~2019-01-18 10:18] MED LIST changes: +REGLAN10 MG ORAL
[2019-01-18 10:21] VITALS: BP 147/87
--- NOTE | 2019-01-18 10:31 | NUR ---
ED Nurse Note: PT FROM HOME WALKED IN DUE TO FLU LIKE SYMPTOMS, SORE THROAT, HEADACHE WITH COUGHING AND EARCAHE X 3 DAYS. RESPIRATIONS ARE EVEN AND NON LABORED. AAO X4 AND AMBULATORY.
--- NOTE | 2019-01-18 10:59 | Emergency Room Report ---
History of Present Illness General Chief Complaint: Flu Like Symptoms Source: Patient Present Illness HPI Patient presents with complaints of cough congestion phlegm production also sore throat Denies any chest pain or shortness of breath denies any vomiting or diarrhea patient had low-grade fever as well Denies any recent travel denies any pleurisy Patient's sore throat is 5 out of 10 worse with swallowing Denies any rash Allergies: Coded Allergies: NAPROXEN (Verified Allergy, Severe, 11/09/16) SKIN RASH,ITCHING ESCITALOPRAM (Verified Allergy, Intermediate, hives, 11/09/16) Patient History Past Medical History: see triage record Last Menstrual Period: no period Reviewed Nursing Documentation: PMH: Agreed; PSxH: Agreed Nursing Documentation-PMH Past Medical History: No History, Except For Hx Cardiac Problems: Yes Hx Hypertension: Yes Hx Cancer: No Hx Gastrointestinal Problems: Yes Hx Dialysis: No History Of Psychiatric Problem: Yes - Anxiety, depression Hx Neurological Problems: Yes - back injury Hx Transient Ischemic Attacks: Yes Hx Memory Loss: Yes Hx Concentration Difficulty: Yes Hx Speech Problem: Yes - RESOLVED Hx Dizziness: Yes Hx Headaches: Yes Hx Numbness: Yes Hx Weakness: Yes Hx Fatigue: Yes Review of Systems All Other Systems: negative except mentioned in HPI Physical Exam Vital Signs Date Time Temp Pulse Resp B/P (MAP) Pulse Ox O2 Delivery O2 Flow Rate FiO2 01/18/19 10:21 98.2 67 19 147/87 97 Room Air Sp02 EP Interpretation: reviewed, normal General Appearance: well appearing, no apparent distress Head: normocephalic, atraumatic Eyes: bilateral eye PERRL, bilateral eye EOMI ENT: hearing grossly normal, TMs + canals normal, uvula midline, pharyngeal erythema Neck: full range of motion, supple, no meningismus, no bony tend Respiratory: lungs clear, normal breath sounds, no rhonchi, no respiratory distress, no retraction, no accessory muscle use Cardiovascular #1: normal peripheral pulses, regular rate, rhythm, no edema, no gallop, no JVD, no murmur Gastrointestinal: normal bowel sounds, non tender, soft, no mass, no organomegaly, non-distended, no guarding, no hernia, no pulsatile mass, no rebound Genitourinary: no CVA tenderness Musculoskeletal: normal inspection Neurologic: oriented x3, responsive, piping blocker III-XII nml as tested, motor strength/ tone normal, sensory intact Psychiatric: mood/affect normal Skin: no rash Lymphatic: normal inspection, no adenopathy Medical Decision Making Diagnostic Impression: Primary Impression: Pharyngitis ER Course Patient has multiple differentials and consideration including but not limited to pharyngitis, flulike symptoms, viral syndrome pneumonia Given the findings and exam given the pharyngeal evaluation patient does have symptoms and signs of acute bacterial pharyngitis Placed on oral antibiotics and will have initial conservative outpatient trial Last Vital Signs Date Time Temp Pulse Resp B/P (MAP) Pulse Ox O2 Delivery O2 Flow Rate FiO2 01/18/19 10:31 74 16 Room Air 01/18/19 10:21 98.2 147/87 (107) 97 Status: improved Disposition: HOME, SELF-CARE Condition: Stable Scripts Promethazine Hcl (PROMETHAZINE HCL*) 6.25 Mg/5 Ml Syrup 5 ML ORAL Q8H for 5 Days, #120 ML 0 Refills Prov: Dina Mercado DO 01/18/19 Azithromycin* (ZITHROMAX*) 250 Mg Tablet 250 MG ORAL DAILY, #6 TAB 0 Refills Take two tables once daily for 1 day, then one tablet once daily for 4 days. Prov: Dina Mercado DO 01/18/19 Referrals: Sukh Castañeda MD (PCP) Additional Instructions: Patient is provided with the discharge instructions notified to follow up with primary doctor in the next 2-3 days otherwise return to the er with any worsening symptoms. Please note that this report is being documented using DRAGON technology. This can lead to erroneous entry secondary to incorrect interpretation by the dictating instrument. Dina Mercado DO Jan 18, 2019 10:59
[2019-01-18] MEDS ORDERED: PROMETHAZI6.25 MG/1 ORAL (11:00)
[2019-01-18] MEDS ORDERED: ZITHROMAX250 MG ORAL (11:00)
[2019-01-18 11:15] VITALS: BP 138/80
--- NOTE | 2019-01-18 11:15 | NUR ---
ER DISCHARGE NOTE: Patient is cleared to be discharged per ERMD, pt is aox4, on room air, with stable vital signs. pt was given dc and prescription instructions, pt was able to verbalize understanding, pt id band removed. pt is able to ambulate with steady gait. pt took all belongings.
== END 2019-01-18 11:15 | disposition home or self-care (01) ==
LOC: EMR 10:35
DX: J02.9 Acute pharyngitis, unspecified (principal); Z88.8 Allergy status to other drugs, medicaments and biological substances; I10 Essential (primary) hypertension; F41.9 Anxiety disorder, unspecified; F32.9 Major depressive disorder, single episode, unspecified; Z86.73 Personal history of transient ischemic attack (TIA), and cerebral infarction without residual deficits
CPT/HCPCS: 99282

== ENCOUNTER 2019-03-26 12:51 | Outpatient (CLI) | payer MEDICARE, OTHER ==
[~2019-03-26] VITALS: Ht 152.4 cm; Wt 89.4 kg
[~2019-03-26 12:51] MED LIST changes: +PROMETHAZI6.25 MG/1 ORAL; +TYLENOL325 MG ORAL
[2019-03-26 15:41] VITALS: BP 125/78
[2019-03-26] MEDS ORDERED: ASPIRIN81 MG ORAL (15:51)
[2019-03-26] MEDS ORDERED: DICLOFEN 3%-HYA30 GM TP (15:51)
[2019-03-26] MEDS ORDERED: LATUDA60 MG PO (15:51)
[2019-03-26] MEDS ORDERED: DICLOFENAC 1% (15:52)
== END 2019-03-26 15:55 | disposition home or self-care (01) ==
LOC: PAN 12:51
DX: R10.9 Unspecified abdominal pain (principal)
CPT/HCPCS: G0463

== ENCOUNTER 2019-06-07 08:43 | Emergency (ER) | payer MEDICARE, OTHER ==
[~2019-06-07] VITALS: Ht 172.7 cm; Wt 88.9 kg
[~2019-06-07 08:43] MED LIST changes: +ASPIRIN81 MG ORAL; +DICLOFEN 3%-HYA30 GM TP; +DICLOFENAC 1%; +LATUDA60 MG PO
[2019-06-07 08:46] VITALS: BP 147/83
--- NOTE | 2019-06-07 09:05 | Emergency Room Report ---
History of Present Illness General Chief Complaint: Flu Like Symptoms Source: Patient Present Illness HPI 63-year-old female possible history of hypertension presents with cough, congestion no shortness of breath no fevers no chills she endorses a sore throat no aggravating or alleviating factors severity is mild, constant patient presents for evaluation no recent travel no sick contacts no CO VID positive patient interactions COVID-19 risk:Contact w/high r: No COVID-19 risk:Travel to affect: No Has patient experienced connor: No Coronavirus symptoms experienc: Cough, Runny Nose Allergies: Coded Allergies: NAPROXEN (Verified Allergy, Severe, 03/19/19) SKIN RASH,ITCHING ESCITALOPRAM (Verified Allergy, Intermediate, hives, 03/19/19) Patient History Past Medical History: see triage record Reviewed Nursing Documentation: PMH: Agreed; PSxH: Agreed Nursing Documentation-PMH Hx Cardiac Problems: Yes Hx Hypertension: Yes Hx Cancer: No Hx Gastrointestinal Problems: Yes Hx Dialysis: No Hx Neurological Problems: Yes Hx Transient Ischemic Attacks: Yes - Hx Memory Loss: Yes Hx Concentration Difficulty: Yes Hx Speech Problem: Yes - RESOLVED Hx Dizziness: Yes Hx Headaches: Yes Hx Numbness: Yes Hx Weakness: Yes Hx Fatigue: Yes Review of Systems All Other Systems: negative except mentioned in HPI Physical Exam Vital Signs Date Time Temp Pulse Resp B/P (MAP) Pulse Ox O2 Delivery O2 Flow Rate FiO2 06/07/19 08:46 98.8 75 19 147/83 96 Room Air Sp02 EP Interpretation: reviewed, normal General Appearance: well appearing, no apparent distress, alert Head: normocephalic, atraumatic Eyes: bilateral eye PERRL, bilateral eye EOMI ENT: uvula midline, moist mucus membranes, nasal congestion Neck: supple, thyroid normal, supple/symm/no masses Respiratory: lungs clear, no respiratory distress, no retraction, no accessory muscle use Cardiovascular #1: normal peripheral pulses, regular rate, rhythm, no edema, no gallop, no murmur Gastrointestinal: non tender, soft, no guarding, no rebound Musculoskeletal: normal inspection Neurologic: alert, oriented x3 Psychiatric: mood/affect normal Skin: no rash, warm/dry Medical Decision Making Diagnostic Impression: Primary Impression: Viral upper respiratory infection ER Course 63-year-old female presents with cough, congestion concerning for possible viral URI Will provide Decadron, cough syrup, chest x-ray shows no evidence of pneumonia counseled patient proper hand hygiene and social isolation Disposition home with return precautions follow-up with PCP Chest X-Ray Diagnostic Results Chest X-Ray Diagnostic Results : Chest X-Ray Ordered: Yes # of Views/Limited/Complete: 1 View Indication: Other - Cough EP Interpretation: Yes Interpretation: no consolidation, no effusion, no pneumothorax, no acute cardiopulmonary disease Impression: No acute disease Electronically Signed by: Raul Day MD Last Vital Signs Date Time Temp Pulse Resp B/P (MAP) Pulse Ox O2 Delivery O2 Flow Rate FiO2 06/07/19 08:46 75 19 Room Air 06/07/19 08:46 98.8 147/83 (104) 96 Disposition: HOME, SELF-CARE Condition: Stable Scripts Guaifenesin/Dextromethorphan* (Guaifenesin Dm Syrup*) 5 Ml Syrup 10 ML ORAL Q8H PRN for For Cough, #118 ML Prov: Raul Day MD 06/07/19 Referrals: [facility] Patient Instructions: Upper Respiratory Infection, Adult, [id number] Additional Instructions: The patient was provided with discharge instructions, notified to follow-up with a primary care doctor and or specialist in the next 24-48 hours, and to return to the ED if they have worsening of their symptoms. Please note that this report is being documented using DRAGON technology. This can lead to erroneous entry secondary to incorrect interpretation by the dictating instrument. Please self isolate for 14 days, please return if you have worsening shortness of breath or concerning symptoms Raul Day MD Jun 07, 2019 09:05
[2019-06-07] MEDS ORDERED: GUAIFENESIN DM118 M1 ORAL (09:08)
[2019-06-07 09:41] VITALS: BP 124/75
--- NOTE | 2019-06-07 12:02 | Diagnostic Imaging Report ---
Indication: Dyspnea Comparison: 01/11/2018 A single view chest radiograph was obtained. Findings: Cardiomediastinal appearance is within normal limits for age. The lungs are clear. Pulmonary vascularity is appropriate. The diaphragmatic contour is smooth and costophrenic angles are sharp. No pleural effusions are identified. The bones are osteopenic. Impression: No acute findings
== END 2019-06-07 09:42 | disposition home or self-care (01) ==
LOC: EMR 09:17
DX: J06.9 Acute upper respiratory infection, unspecified (principal); I10 Essential (primary) hypertension; Z86.73 Personal history of transient ischemic attack (TIA), and cerebral infarction without residual deficits; Z88.8 Allergy status to other drugs, medicaments and biological substances
CPT/HCPCS: 71045; 99283; J8540

== ENCOUNTER 2019-11-19 11:40 | Outpatient (CLI) | payer MEDICARE, OTHER ==
[~2019-11-19 11:40] MED LIST changes: +GUAIFENESIN DM118 M1 ORAL
[2019-11-19 12:15] VITALS: BP 125/75
--- NOTE | 2019-11-19 12:28 | General Progress Note ---
Assessment/Plan Assessment/Plan: 1) HTN (hypertension) ICD Codes: I10 - Essential (primary) hypertension SNOMED: 46562039 (2) Hypercholesterolemia ICD Codes: E78.0 - Pure hypercholesterolemia SNOMED: 89757202 (3) Depression ICD Codes: F32.9 - Major depressive disorder, single episode, unspecified SNOMED: 83697222 (4) Status post laparoscopic cholecystectomy ICD Codes: Z98.89 - Status post laparoscopic cholecystectomy SNOMED: 79439288 (5) Obesity ICD Codes: E66.9 - Obesity, unspecified SNOMED: 775557361 Assessment/Plan: s/p EGD H.pylori gastritis s/p treatment still on omeprazole will lucille off and order breath test constipation>> add linzess 145 screening colon>>> plan colonoscopy bloating>>> consider Xifaxan next visit Subjective ROS Limited/Unobtainable: Yes Allergies: Coded Allergies: NAPROXEN (Verified Allergy, Severe, 03/19/19) SKIN RASH,ITCHING ESCITALOPRAM (Verified Allergy, Intermediate, hives, 03/19/19) Objective Last 24 Hour Vital Signs Date Time Temp Pulse Resp B/P (MAP) Pulse Ox O2 Delivery O2 Flow Rate FiO2 11/19/19 12:15 97.8 66 16 125/75 (92) 100 General Appearance: alert EENT: normal ENT inspection Neck: supple Cardiovascular: normal rate Respiratory/Chest: lungs clear Abdomen: normal bowel sounds, non tender, soft Extremities: non-tender Jewel Ramirez MD Nov 19, 2019 12:27
== END 2019-11-19 15:04 | disposition home or self-care (01) ==
LOC: PAN 11:40
DX: I10 Essential (primary) hypertension (principal); E78.00 Pure hypercholesterolemia, unspecified; F32.9 Major depressive disorder, single episode, unspecified; Z98.890 Other specified postprocedural states; E66.9 Obesity, unspecified; K59.00 Constipation, unspecified; R14.0 Abdominal distension (gaseous); K29.70 Gastritis, unspecified, without bleeding; B96.81 Helicobacter pylori [H. pylori] as the cause of diseases classified elsewhere; Z88.8 Allergy status to other drugs, medicaments and biological substances
CPT/HCPCS: 99212

== ENCOUNTER 2019-12-05 06:30 | Day surgery (SDC) | payer MEDICARE, OTHER ==
[2019-12-05] VITALS (9 sets, daily range): BP systolic 102–138; BP diastolic 55–83
[~2019-12-05] VITALS: Ht 152.4 cm; Wt 91.2 kg
[~2019-12-05 06:30] MED LIST changes: +BENADRYL25 MG ORAL; +IBUPROFEN200 M2 ORAL; +LINZESS145 MCG PO; +SERTRALINE HCL25 MG ORAL; +VITAMIN B122500 MCG PO; +hydroxizine PO; +vitamin d PO
[2019-12-05] MEDS ORDERED: CATAPRES0.1 MG ORAL (06:57)
[2019-12-05] MEDS ORDERED: LR 1000ml 1,000 ML IVLG SCH (08:03)
--- NOTE | 2019-12-05 09:32 | Short Stay Surgery H&P ---
History of Present Illness History of Present Illness Chief Complaint see office consult note HPI Mary Mckinley is a 64 year old female who was admitted on for Abd Pain Patient History Allergies: Coded Allergies: NAPROXEN (Verified Allergy, Severe, HIVES, 12/03/19) Medication History Scheduled Aspirin* (Aspirin*), 81 MG ORAL DAILY, (Reported) Baclofen* (Baclofen*), 20 MG ORAL DAILY, (Reported) Clonidine Hcl* (Catapres*), 0.1 MG ORAL NEEDED, (Reported) Cyanocobalamin (Vitamin B-12) (Vitamin B12), 2,500 MCG PO ONCE A WEEK, (Reported) Ibuprofen (Ibuprofen), 200 MG ORAL FOUR TIMES A DAY, (Reported) Irbesartan* (Avapro*), 75 MG ORAL DAILY, (Reported) Linaclotide (Linzess), 145 MCG PO DAILY, (Reported) Lovastatin (Lovastatin), 10 MG ORAL BEDTIME, (Reported) Sertraline Hcl* (Sertraline Hcl*), 50 MG ORAL DAILY, (Reported) [hydroxizine], 50 MG PO DAILY, (Reported) [vitamin d], 5,000 UNITS PO DAILY, (Reported) Scheduled PRN Diphenhydramine Hcl* (Benadryl*), 25 MG ORAL Q6H PRN for Itching, (Reported) Physical Exam Vital Signs Last Vital Signs Date Time Temp Pulse Resp B/P (MAP) Pulse Ox O2 Delivery O2 Flow Rate FiO2 12/05/19 06:52 Room Air 12/05/19 06:51 97.5 73 18 113/77 98 Plan Attestation Are the patient's medical conditions optimized for surgery? Jewel Ramirez MD Dec 05, 2019 09:32
--- NOTE | 2019-12-05 09:32 | Pre-Procedure Note/Attestation ---
Pre-Procedure Note/Attestation Complete Prior to Procedure Planned Procedure: not applicable Procedure Narrative: colonoscopy Indications for Procedure Pre-Operative Diagnosis: screening colon Attestation I attest that I discussed the nature of the procedure; its benefits; risks and complications; and alternatives (and the risks and benefits of such alternatives), prior to the procedure, with the patient (or the patient's legal inbound call center representative). I attest that, if there was a reasonable possibility of needing a blood transfusion, the patient (or the patient's legal inbound call center representative) was given the [facility] standardized written summary, pursuant to the Leon Deepthi Blood Safety Act ([place] Health and Safety Code # 1645, as amended). I attest that I re-evaluated the patient just prior to the surgery and that there has been no change in the patient's H&P, except as documented below: Jewel Ramirez MD Dec 05, 2019 09:32
[2019-12-05] MEDS ORDERED: LR 1000ml ONE (10:00)
[2019-12-05] MEDS ORDERED: Lidocaine 1% MPF 10mg/ml 5ml ONE ×2 (10:00)
--- NOTE | 2019-12-05 10:22 | Endoscopy Procedure Note ---
Endoscopy Procedure Note General Indication for Procedure: screening Procedures Performed: colonoscopy Operative Findings/Diagnosis: diverticulosis Specimen: none Pt Tolerated Procedure Well: Yes Estimated Blood Loss: none Anesthesia Anesthesiologist: sebastian Anesthesia: MAC Inserted Devices Implant(s) used?: No Quality Quality of Bowel Preparation: Fair Did scope reach the cecum?: Yes Was there any complications?: No GI Core Measures 50 yrs or older w/o bx or poly: No 10yrs. F/U recommended: Yes If not recommended, why?: Above average risk 18 years or older w/prev. colo: No Jewel Ramirez MD Dec 05, 2019 10:22
--- NOTE | 2019-12-05 10:30 | Immediate Post-Op Evaluation ---
Immediate Post-Op Evalulation Immediate Post-Op Evalulation Procedure: Colonoscopy Date of Evaluation: Dec 05, 2019 Time of Evaluation: 10:30 IV Fluids: 600 Blood Pressure Systolic: 129 Blood Pressure Diastolic: 67 Pulse Rate: 80 Respiratory Rate: 14 O2 Sat by Pulse Oximetry: 99 Temperature (Fahrenheit): 97.5 Nausea: No Vomiting: No Patient Status: awake, reacts, patent Hydration Status: adequate Drug: none SoniariSunni morrow CRNA Dec 05, 2019 10:30
--- NOTE | 2019-12-05 10:32 | Anethesia Preoperative Eval ---
Anesthesia Pre-op PMH/ROS General Date of Evaluation: Dec 05, 2019 Time of Evaluation: 10:00 Anesthesiologist: amari ASA Score: ASA 3 Mallampati Score Class I : Soft palate, uvula, fauces, pillars visible Class II: Soft palate, uvula, fauces visible Class III: Soft palate, base of uvula visible Class IV: Only hard plate visible Mallampati Classification: Class II Surgeon: prem Diagnosis: abd pain Surgical Procedure: Colonoscopy Anesthesia History: none Family History: no anesthesia problems Allergies: Coded Allergies: NAPROXEN (Verified Allergy, Severe, HIVES, 12/03/19) Medications: see eMAR Patient NPO?: Yes NPO Date: Dec 05, 2019 NPO Time: 00:01 Past Medical History Cardiovascular: Reports: HTN, CAD Pulmonary: Reports: MALINI; Denies: asthma, COPD, other Gastrointestinal/Genitourinary: Reports: GERD; Denies: CRI, ESRD, other Neurologic/Psychiatric: Reports: CVA; Denies: dementia, depression/anxiety, TIA, other Endocrine: Denies: DM, hypothyroidism, steroids, other HEENT: Denies: cataract (L), cataract (R), glaucoma, PILOT STATION (L), PILOT STATION (R), other Hematology/Immune: Denies: anemia, DVT, bleeding disorder, other Other: obesity PSxH Narrative: knee replacement Anesthesia Pre-op Phys. Exam Physician Exam Last Vital Signs Date Time Temp Pulse Resp B/P (MAP) Pulse Ox O2 Delivery O2 Flow Rate FiO2 12/05/19 06:52 Room Air 12/05/19 06:51 97.5 73 18 113/77 98 Constitutional: NAD Neurologic: CN 2-12 intact Cardiovascular: RRR Respiratory: CTA Gastrointestinal: S/NT/ND Airway Exam Mallampati Classification 3 Mallampati Score: Class III MO: limited Neck: thick Dentures: no upper, no lower Anesthesia Pre-op A/P Studies Pre-op Studies: EKG - sr Risk Assessment & Plan Assessment: covid neg Plan: mac Status Change Before Surgery: Sunni Avery CRNA Dec 05, 2019 10:32
--- NOTE | 2019-12-05 11:31 | 48 Hour Post Anesthesia Eval ---
Post Anesthesia Evaluation Procedure: Colonoscopy Date of Evaluation: Dec 05, 2019 Time of Evaluation: 11:31 Blood Pressure Systolic: 138 0: 60 Pulse Rate: 64 Respiratory Rate: 14 O2 Sat by Pulse Oximetry: 98 Airway: patent Nausea: No Vomiting: No Hydration Status: adequate Cardiopulmonary Status: stable Mental Status/LOC: patient returned to baseline Post-Anesthesia Complications: none Follow-up care needed: N/A Sunni Rivera CRNA Dec 05, 2019 11:31
--- NOTE | 2019-12-05 13:45 | Procedure Note ---
DATE OF PROCEDURE: 12/05/2019 SURGEON: Jewel Ramirez MD. PROCEDURE: Colonoscopy. ANESTHESIA: Per TYPESETTER APPRENTICE, Sunni Tarrillюлия. INSTRUMENT: Olympus adult flexible colonoscope. INDICATION: Screening. REASON FOR PROCEDURE: The procedure, risks, benefits, and possible consequences, including hemorrhage, aspiration, perforation and infection, and alternative treatments, were explained to the patient/legal guardian by Dr. Jewel Ramirez and the patient/legal guardian understood and accepted these risks. PROCEDURE IN DETAIL: After informed consent was obtained and the patient was adequately sedated, first rectal exam was performed, which was positive for internal hemorrhoids. Then, the scope was advanced from the rectum into the cecum documented by appendix orifice, ileocecal valve, and right upper quadrant palpation. Quality of prep was fair. The patient had evidence of moderate to significant diverticulosis in the left colon. No obvious diverticulitis. No polyp was seen, but the prep was fair. Retroflexion of rectum was performed which showed evidence of medium-sized nonbleeding internal hemorrhoids. SUMMARY OF FINDINGS: 1. Fair colonic prep. 2. Diverticulosis, mainly in the left colon. 3. Internal hemorrhoids. RECOMMENDATIONS: Repeat colonoscopy in three years given this prep. Jewel Ramirez M.D. DR: CHAPARRITA JOB#: [id number] CC:
== END 2019-12-05 11:30 | disposition home or self-care (01) ==
LOC: GAS 06:30
DX: Z12.11 Encounter for screening for malignant neoplasm of colon (principal); K57.90 Diverticulosis of intestine, part unspecified, without perforation or abscess without bleeding; K64.8 Other hemorrhoids; Z88.8 Allergy status to other drugs, medicaments and biological substances; Z79.82 Long term (current) use of aspirin; Z79.899 Other long term (current) drug therapy; I11.9 Hypertensive heart disease without heart failure; I25.10 Atherosclerotic heart disease of native coronary artery without angina pectoris; G47.33 Obstructive sleep apnea (adult) (pediatric); K21.9 Gastro-esophageal reflux disease without esophagitis; Z86.73 Personal history of transient ischemic attack (TIA), and cerebral infarction without residual deficits; E66.9 Obesity, unspecified; Z96.659 Presence of unspecified artificial knee joint; Z68.39 Body mass index [BMI] 39.0-39.9, adult
CPT/HCPCS: 93005; 94003; G0121; J2704; J7120; U0002; 94150

== ENCOUNTER 2019-12-26 13:50 | Outpatient (CLI) | payer MEDICARE, OTHER ==
[~2019-12-26 13:50] MED LIST changes: +CATAPRES0.1 MG ORAL
--- NOTE | 2019-12-26 13:52 | General Progress Note ---
Subjective ROS Limited/Unobtainable: Yes Allergies: Coded Allergies: NAPROXEN (Verified Allergy, Severe, HIVES, 12/03/19) Objective General Appearance: alert EENT: normal ENT inspection Neck: supple Cardiovascular: normal rate Respiratory/Chest: decreased breath sounds Abdomen: normal bowel sounds, non tender, soft Extremities: non-tender Assessment/Plan Problem List: (1) Diverticulosis ICD Codes: K57.90 - Diverticulosis of intestine, part unspecified, without perforation or abscess without bleeding SNOMED: 203055714 (2) Constipation ICD Codes: K59.00 - Constipation, unspecified SNOMED: 61727222 (3) Status post laparoscopic cholecystectomy ICD Codes: Z98.89 - Status post laparoscopic cholecystectomy SNOMED: 07307033 (4) HTN (hypertension) ICD Codes: I10 - Essential (primary) hypertension SNOMED: 85967464 (5) Hypercholesterolemia ICD Codes: E78.0 - Pure hypercholesterolemia SNOMED: 19797227 (6) Depression ICD Codes: F32.9 - Major depressive disorder, single episode, unspecified SNOMED: 78326943 (7) Cerebrovascular accident (CVA) ICD Codes: I63.9 - Cerebral infarction, unspecified SNOMED: 950301714 Assessment/Plan: s/p colonoscopy fair prep asymptomatic cont linzess repeat colon in 5 years Jewel Ramirez MD Dec 26, 2019 13:52
== END 2019-12-26 15:50 | disposition home or self-care (01) ==
LOC: PAN 13:50
DX: K57.90 Diverticulosis of intestine, part unspecified, without perforation or abscess without bleeding (principal); K59.00 Constipation, unspecified; Z98.890 Other specified postprocedural states; I10 Essential (primary) hypertension; E78.00 Pure hypercholesterolemia, unspecified; F32.9 Major depressive disorder, single episode, unspecified; Z86.73 Personal history of transient ischemic attack (TIA), and cerebral infarction without residual deficits; Z88.8 Allergy status to other drugs, medicaments and biological substances
CPT/HCPCS: 99212

== ENCOUNTER 2020-04-25 09:41 | Emergency (ER) | payer MEDICARE, OTHER ==
[~2020-04-25] VITALS: Ht 152.4 cm; Wt 93.0 kg
--- NOTE | 2020-04-25 09:42 | Emergency Room Report ---
History of Present Illness General Chief Complaint: Dizziness Present Illness HPI Patient is a 64-year-old female presents for increased generalized body weakness. Patient had prior history of hypertension as well as high cholesterol, irritable bowel disease. Patient had been having onset of symptoms approximately 2:00 in the morning. Had recent negative coronavirus testing approximately 1 week ago.Patient reports having diffuse body aches and joint aches for the past 3 days. Denies any cough. Reports having some increased dysuria. Denies any fever. Reports having increased joint pain for the past 3 to 4 days. Denies any headache. Reports having bilateral tinnitus. Patient was [facility] in by [facility]. Patient is followed by Dr. Castañeda. 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
[2020-04-25] MEDS ORDERED: Solu-MEDROL 125mg Inj IVP ONE (10:00)
[2020-04-25 10:11] LABS: BASOPHILS % (AUTO) 0.9 % (0.0-2.0); EOSINOPHILS % (AUTO) 3.2 % (0.0-3.0); HEMATOCRIT 46.6 % (37.0-47.0); HEMOGLOBIN 14.3 G/DL (12.0-16.0); MEAN CORPUSCULAR VOLUME 92 FL (80-99); MONOCYTES % (AUTO) 6.3 % (1.0-10.0); NEUTROPHILS % (AUTO) 57.6 % (45.0-75.0); PLATELET COUNT 451 K/UL (150-450); RED BLOOD COUNT 5.09 M/UL (4.20-5.40); RED CELL DISTRIBUTION WIDTH 11.9 % (11.6-14.8); WHITE BLOOD COUNT 7.3 K/UL (4.8-10.8)
[2020-04-25 10:23] LABS: ANION GAP 9 mmol/L (5-15); BLOOD UREA NITROGEN 15 mg/dL (7-18); CALCIUM 8.9 MG/DL (8.5-10.1); CARBON DIOXIDE 26 MMOL/L (21-32); CHLORIDE 106 MMOL/L (98-107); CREATININE 0.8 MG/DL (0.55-1.30); POTASSIUM 4.2 MMOL/L (3.5-5.1); SODIUM 141 MMOL/L (136-145)
[2020-04-25 10:27] VITALS: BP 133/71
[2020-04-25 10:33] LABS: ALANINE AMINOTRANSFERASE 23 U/L (12-78); ALBUMIN 3.4 G/DL (3.4-5.0); ALBUMIN/GLOBULIN RATIO 0.7 (1.0-2.7); ALKALINE PHOSPHATASE 116 U/L (46-116); ASPARTATE AMINO TRANSFERASE 16 U/L (15-37); BILIRUBIN,TOTAL 0.3 MG/DL (0.2-1.0)
--- NOTE | 2020-04-25 10:34 | Diagnostic Imaging Report ---
Indication: Shortness of breath Technique: One view of the chest Comparison: 06/07/2019 Findings: Lungs and pleural spaces are clear. Heart size is normal. Impression: No acute process
--- NOTE | 2020-04-25 10:37 | Diagnostic Imaging Report ---
Indications: Vertigo Technique: Spiral acquisitions obtained through the brain. Angled axial and coronal 5 x 5 mm slices were reconstructed. Total dose length product 1072 mGycm. CTDI vol(s) 53 mGy. Dose reduction achieved using automated exposure control Comparison: None. Findings: No acute intracranial hemorrhage or edema, mass effect, nor midline shift. Normal sotelo-white differentiation. There is minimal periventricular deep white matter low-attenuation, consistent with chronic microvascular ischemic change. Normal size for age ventricles and extra-axial spaces. Visualized orbits and sinuses are unremarkable. The mastoids are clear. The calvarium is intact Impression: Minimal involutional changes. Negative for acute intracranial bleed or mass effect The CT scanner at [facility] is accredited by the [employer] and the scans are performed using protocols designed to limit radiation exposure to as low as reasonably achievable to attain images of sufficient resolution adequate for diagnostic evaluation.
[2020-04-25 10:51] LABS: APPEARANCE,URINE CLEAR; BILIRUBIN, URINE NEGATIVE (NEGATIVE); COLOR,URINE PALE YELLOW; GLUCOSE, URINE (UA) NEGATIVE (NEGATIVE); KETONES,URINE NEGATIVE (NEGATIVE); LEUKOCYTE ESTERASE ,URINE NEGATIVE (NEGATIVE); NITRITE,URINE NEGATIVE (NEGATIVE); PH,URINE 7 (4.5-8.0); PROTEIN,URINE NEGATIVE (NEGATIVE); UROBILINOGEN,URINE 1 MG/DL (0.0-1.0)
[2020-04-25] MEDS ORDERED: Meclizine 25mg tab ORAL ONE (11:00)
[2020-04-25] MEDS ORDERED: PREDNISONE10 MG ORAL (12:43)
[2020-04-25 13:31] VITALS: BP 124/65
--- NOTE | 2020-04-25 13:35 | NUR ---
ER DISCHARGE NOTE: Patient is cleared to be discharged per ERMD, pt is aox4, on room air, with stable vital signs. pt was given dc and prescription instructions, pt was able to verbalize understanding, pt id band and iv site removed without complications. pt is able to ambulate with steady gait. pt took all belongings.
== END 2020-04-25 13:58 | disposition home or self-care (01) ==
LOC: EDBD 09:41 → EMR 09:54
DX: R53.1 Weakness (principal); E78.00 Pure hypercholesterolemia, unspecified; I10 Essential (primary) hypertension; R30.0 Dysuria; Z88.8 Allergy status to other drugs, medicaments and biological substances; H93.13 Tinnitus, bilateral; R06.02 Shortness of breath
CPT/HCPCS: 36415; 70450; 71045; 80053; 81001; 83880; 84443; 84484; 85025; 86140; 93005; 96374; 99284; J2930